=== PATIENT | male | born 1975 | race Caucasian/White ===

== ENCOUNTER 2020-03-22 07:56 | Emergency (ER) | payer OTHER, SELFPAY ==
--- NOTE | ~2020-03-22 | XR_ITS ---
EXAMINATION: XR CHEST CLINICAL INFORMATION: Chest pain. COMPARISON: 11/03/2019 chest radiograph. TECHNIQUE: Frontal view of the chest was obtained. FINDINGS: No significant abnormality is noted involving the heart, lungs, mediastinum, bony thorax or soft tissues. XR/XR chest 1V IMPRESSION: No acute cardiopulmonary process.
[2020-03-22 08:03] VITALS: BP 136/86; PULSE 95; RESP 18; TEMP 37.1; O2SAT 97; BMI 43.5
--- NOTE | 2020-03-22 08:12 | ED_ITS ---
HPI - Chest Pain General Chief Complaint: Chest Pain Stated Complaint: CHEST PAIN Time Seen by Provider: 03/22/20 08:07 Source: patient Mode of arrival: ambulatory Limitations: no limitations History of Present Illness HPI narrative: Pleasant 44-year-old male presenting ambulatory via triage with complaint of left-sided chest pain. His past medical history consists of substance abuse has been in remission for several years currently on methadone, nephrolithiasis, hypertension, and pulmonary embolism anticoagulated on Xarelto for life states he has had left-sided chest pain developed after he shovels snow. States doing a snowstorm he did a lot of shoveling and the day after he developed achy like pain in the left chest radiating to the left arm with movement however has been going on for 3 days now that made him concerned. He denies any upper respiratory symptoms, dyspnea on exertion, anginal-type symp toms. No fever. No recent travel or sick contacts. States he has been compliant with his Xarelto. Again denies any drug use. MD complaint: chest discomfort Onset (ago): day(s) Timing of current episode: episodic Prior episodes: Yes Onset: during exertion Pain location: left chest Pain radiation: left arm Severity: mild Quality: tightness and aching Exacerbating factors: palpation and movement Context: other (After shoveling snow 3 days ago ) Treatment prior to arrival: none Risk Factors Coronary artery disease risk factors: hypertension Pulmonary embolism risk factors: history of pulmonary embolism Related Data Allergies Allergy/AdvReac Type Severity Reaction Status Date / Time Penicillins [PENICILLINS] Allergy Unknown UNKNOWN Unverified 11/02/19 15:53 Review of Systems Review of Systems: Constitutional: No Weight loss, No Fever, No Chills, No Night Sweats, No Fatigue, No Malaise ENT/Mouth: No Hearing loss, No Ear Pain, No Nasal Congestion, No Sinus Pain, No Hoarseness, No sore throat, No Rhinorrhea, No Swallowing Difficulty Eyes: No Eye Pain, No Swelling, No Redness, No Foreign Body, No Discharge, No Vision Changes Cardiovascular: + Chest Pain, No SOB, No Dyspnea on Exertion, No Orthopnea, No Edema, No Palpitations Respiratory: No Cough, No Sputum, No Wheezing, No Smoke Exposure, No Dyspnea Gastrointestinal: No Nausea, No Vomiting, No Diarrhea, No Constipation, No abdominal Pain, No Hematochezia, No Melena Genitourinary:No Dysuria, No Urinary Frequency, No Hematuria, No Urinary Incontinence, No Urgency, No Flank Pain, No Urinary Flow Changes, No Hesitancy Musculoskeletal: No joint pain, No Myalgias, No Joint Swelling Skin: No Skin Lesions, No rash Neuro: No Weakness, No Numbness, No Paresthesias, No Loss of Consciousness, No Dizziness, No Headache Psych: No Social Issues Heme/Lymph: No Bruising, No Bleeding,No Lymphadenopathy Endocrine: No Polyuria, No Polydipsia, No Temperature Intolerance Yes all ot her systems are reviewed and are negative [facility] Past Medical History Medical History (Updated 03/22/20 @ 10:17 by Nikolas Jo NP) Chronic anticoagulation History of blood clots HTN (hypertension) Kidney stones Pulmonary embolism Substance abuse Social History Social History Alcohol intake: former Smoking Status: Former smoker Smoked in Last 30 Days: No Use of substances other than those prescribed or required for medical reasons: Yes Substance Use Type: Heroin Any prior treatment program specific to substance use: No Advance Directives: No Advance Directives Information Provided: No Physical Exam Vital Signs: Vital Signs: Last Vital Signs Temp 97.9 F 03/22/20 10:00 Pulse 68 03/22/20 10:00 Resp 14 03/22/20 10:00 BP 107/76 03/22/20 10:00 Pulse Ox 96 03/22/20 10:00 Body Mass Index 43.5 Const: General: cooperative and healthy appearing; No acute distress or intoxicated appearing Nutritional Appearance: average body habitus Orientation/consciousness: patient oriented x3 HENMT: Head: Yes normal to inspection Ears: hearing grossly normal bilaterally Eyes: General: appearance normal, both eyes and all related structures Visual Cristina: normal visual cristina by confrontation Neck: Neck: Yes normal visual inspection, No positive Brudzinski's sign, No positive Kernig's sign and No tender Thyroid: Thyroid normal Chest: Chest palpation & inspection: normal inspection of the chest, no crepitus and tenderness pectoral muscle and costal cartilage Resp: Effort & Inspection: normal respiratory effort Auscultation: clear to auscultation bilaterally Cardio: Jugular venous distension: no JVD Rate: regular rate Rhythm: regular rhythm Heart sounds: S1 normal heart sound present and S2 normal heart sound present GI: Inspection: Yes normal to inspection Percussion: Yes normal to percussion Auscultation: normal bowel sounds : General: Yes no CVA tenderness Back/Spine/Pelvis: Back: no CVA tenderness Skin: General skin exam: no rashes or lesions noted Neuro: General: patient oriented x3 Extrem: General: Yes normal to inspection Course Course Course Narrative: Workup essentially unremarkable. EKG nondiagnostic troponin negative, COVID negative, chest x-ray negative D-dimer negative. AP and exam more consistent with musculoskeletal chest pain and less likely cardiopulmonary. He will avoid NSAIDs will trial compresses and Tylenol for the pain discomfort. Findings/plan reviewed verbalize sitting comfortable plan. Stable for discharge. MDM - Chest Pain Differential Diagnosis Differential diagnosis: Likely atypical chest pain, costochondritis and chest pain; Unlikely fracture of rib, pneumothorax, stable angina, unstable angina pe ctoris, st elevation myocardial infarction and biliary colic Differential diagnosis: Also considered pulmonary embolism though possibility is low given that he is on chronic anticoagulation. Medical Records Data Attestation: I reviewed the patient's medical records. Medical records narrative: It appears in the [facility] historically he has been here quite a few times for atypical type chest pain. Lab Data Attestation: I reviewed the patient's lab results. Result diagrams: 03/22/20 08:53 03/22/20 08:52 Labs: Lab Results 03/22/20 03/22/20 03/22/20 Range/Units 08:52 08:52 08:53 WBC 7.4 (4.8-10.8) X10*3/uL RBC 4.27 L (4.60-5.80) X10*6/uL Hgb 12.8 L (14.0-18.0) g/dl Hct 38.5 L (42-52) % MCV 90.2 (80-98) fL MCH 30.0 (27.0-33.0) pg MCHC 33.2 (31.0-36.0) g/dl RDW 12.8 (11.0-16.0) % Plt Count 221 (160-400) X10*3/uL MPV 9.6 (9.4-12.4) fL Immature Gran % (Auto) 0.7 H (0.0-0.4) % Neut % (Auto) 62.6 (45-73) % Lymph % (Auto) 27.6 (20-40) % [place] % (Auto) 7.4 (2-11) % Eos % (Auto) 0.9 (0-4) % Baso % (Auto) 0.8 (0-2) % Lymph # (Auto) 2.1 (1.2-4.9) X10*3/uL [place] # (Auto) 0.6 (0.1-1.2) X10*3/uL Eos # (Auto) 0.1 (0.0-0.4) X10*3/uL Baso # (Auto) 0.1 (0.0-0.2) X10*3/uL Abs Immat Gran (auto) 0.05 H (0.00-0.03) X10*3/uL Absolute Neuts (auto) 4.7 (2.0-8.3) X10*3/uL Absolute Nucleated RBC 0.000 (0.0-0.012) X10*3/uL Nucleated RBC % (auto) 0.0 (0.0-0.2) /100WBC PT (10.8-13.0) SEC INR (0.9-1.1) APTT (24.1-38.0) SEC D-Dimer NG/ML Sodium 136 (135-145) mmol/L Potassium 4.3 (3.3-5.1) mmol/L Chloride 100 (96-108) mmol/L Carbon Dioxide 28 (22-29) mmol/L Anion Gap 12 (12-20) BUN 19 H (9-16) mg/dL Creatinine 1.09 (0.5-1.4) mg/dL Estim Creat Clear Calc 106.7 Estimated GFR > 60 Random Glucose 107 (60-115) mg/dL Calcium 9.5 (8.4-10.2) mg/dL Total Bilirubin 0.4 (0.0-1.0) mg/dL AST 43 H (5-37) U/L ALT 55 H (0-40) U/L Alkaline Phosphatase 66 (39-117) U/L Troponin I High Sens (<3.5-35.0) ng/L Total Protein 8.0 (6.5-8.0) g/dL Albumin 4.4 (3.5-5.0) g/dL Urine Color Urine Appearance Urine pH (5.0-8.0) Ur Specific [place] (1.005-1.025) Urine Protein (NEG-TRACE) MG/DL Urine Glucose (UA) (NEG) MG/DL Urine Ketones (NEG) MG/DL Urine Blood (NEG) Urine Nitrite (NEG) Ur Leukocyte Esterase (NEG) Urine RBC (0) /HPF Urine WBC (0-4) /HPF Ur Squamous Epith Cells /LPF Urine Bacteria /LPF Urine Mucus /LPF COVID-19 (JESSIE) Negative (Negative) COVID-19 Clin Com See Note 03/22/20 03/22/20 03/22/20 Range/Units 08:53 08:53 08:54 WBC (4.8-10.8) X10*3/uL RBC (4.60-5.80) X10*6/uL Hgb (14.0-18.0) g/dl Hct (42-52) % MCV (80-98) fL MCH (27.0-33.0) pg MCHC (31.0-36.0) g/dl RDW (11.0-16.0) % Plt Count (160-400) X10*3/uL MPV (9.4-12.4) fL Immature Gran % (Auto) (0.0-0.4) % Neut % (Auto) (45-73) % Lymph % (Auto) (20-40) % [place] % (Auto) (2-11) % Eos % (Auto) (0-4) % Baso % (Auto) (0-2) % Lymph # (Auto) (1.2-4.9) X10*3/uL [place] # (Auto) (0.1-1.2) X10*3/uL Eos # (Auto) (0.0-0.4) X10*3/uL Baso # (Auto) (0.0-0.2) X10*3/uL Abs Immat Gran (auto) (0.00-0.03) X10*3/uL Absolute Neuts (auto) (2.0-8.3) X10*3/uL Absolute Nucleated RBC (0.0-0.012) X10*3/uL Nucleated RBC % (auto) (0.0-0.2) /100WBC PT 19.2 H (10.8-13.0) SEC INR 1.6 H (0.9-1.1) APTT 38.9 H (24.1-38.0) SEC D-Dimer < 200 NG/ML Sodium (135-145) mmol/L Potassium (3.3-5.1) mmol/L Chloride (96-108) mmol/L Carbon Dioxide (22-29) mmol/L Anion Gap (12-20) BUN (9-16) mg/dL Creatinine (0.5-1.4) mg/dL Estim Creat Clear Calc Estimated GFR Random Glucose (60-115) mg/dL Calcium (8.4-10.2) mg/dL Total Bilirubin (0.0-1.0) mg/dL AST (5-37) U/L ALT (0-40) U/L Alkaline Phosphatase (39-117) U/L Troponin I High Sens 4.9 (<3.5-35.0) ng/L Total Protein (6.5-8.0) g/dL Albumin (3.5-5.0) g/dL Urine Color YELLOW Urine Appearance CLEAR Urine pH 6.0 (5.0-8.0) Ur Specific [place] 1.025 (1.005-1.025) Urine Protein NEG (NEG-TRACE) MG/DL Urine Glucose (UA) NEG (NEG) MG/DL Urine Ketones NEG (NEG) MG/DL Urine Blood NEG (NEG) Urine Nitrite NEG (NEG) Ur Leukocyte Esterase NEG (NEG) Urine RBC 0-2 (0) /HPF Urine WBC 0-2 (0-4) /HPF Ur Squamous Epith Cells NONE /LPF Urine Bacteria NONE /LPF Urine Mucus TRACE /LPF COVID-19 (JESSIE) (Negative) COVID-19 Clin Com ABG Data Interpretation: Normal sinus rhythm Rate [address] segment changes No significant change from previous 2019 Imaging Data Chest x-ray: Radiologist's impression: [address] [id number] ReportDraft Patient: Junaid Miller AMR#: [id number]: 1975 cct:[id number]/Sex: 44 / MADM Date: 03/22/20Loc: HO.EDAttending Dr: Ordering Physician: Nikolas Jo NP Date of Service: 03/22/20 Procedure(s): ECG 12 lead EKG Accession Number(s): [id number] cc: ~ Test Reason : CHEST PAIN Blood Pressure : / mmHG Vent. Rate : 096 BPM Atrial Rate : 096 BPM P-R Int : 138 ms QRS Dur : 088 ms QT Int : 346 ms P-R-T Axes : 048 020 025 degrees QTc Int : 437 ms Normal sinus rhythm Normal ECG When compared with ECG of 03-NOV-2019 09:16, No significant change was found Referred By: Nikolas Jo Electronically Signed By: Dictated By:Signed By: DD/ [id number]/TT: 03/22/20 0956Transcriptionist: Discharge Plan Discharge Clinical Impression: Atypical chest pain Patient Disposition: Home, Self-Care Instructions: Chest Wall Pain (ED) Additional Instructions: Your blood work was overall reassuring Her chest x-ray negative Her EKG was okay Your COVID test was negative Your blood test for blood clot was also negative Please continue to take your blood thinner as prescribed The pain that you are experiencing is from muscle strain from shoveling and you should take [id number] Tylenol per label structure Gentle stretching and warm compresses Return if any concerns or worsening symptoms Thank you Referrals: Dian Chu [Primary Care Provider] - 1 week
--- NOTE | 2020-03-22 08:15 | ECG_ITS ---
Test Reason : CHEST PAIN Blood Pressure : / mmHG Vent. Rate : 096 BPM Atrial Rate : 096 BPM P-R Int : 138 ms QRS Dur : 088 ms QT Int : 346 ms P-R-T Axes : 048 020 025 degrees QTc Int : 437 ms Normal sinus rhythm Nonspecific ST and T wave abnormality Borderline ECG When compared with ECG of 03-NOV-2019 09:16, No significant change was found Referred By: Nikolas Jo Electronically Signed By:PAUL BERNARDO
[2020-03-22] MEDS: 0.9 % Sodium Chloride 1,000 ML 999 ML IV (08:58)
[2020-03-22 09:01] LABS: Basophils Absolute Auto 0.1 X10*3/uL (0.0-0.2); Basophils Percent Auto 0.8 % (0-2); Eosinophils Absolute Auto 0.1 X10*3/uL (0.0-0.4); Eosinophils Percent Auto 0.9 % (0-4); Hematocrit 38.5 % (42-52); Hemoglobin 12.8 g/dl (14.0-18.0); Imm Gran Abs Auto 0.05 X10*3/uL (0.00-0.03); Imm Gran Pct Auto 0.7 % (0.0-0.4); Lymphocytes Absolute Auto 2.1 X10*3/uL (1.2-4.9); Lymphocytes Percent Auto 27.6 % (20-40); MANUAL DIFF FLAG NO; Mean Corpuscular HGB Conc 33.2 g/dl (31.0-36.0); Mean Corpuscular Volume 90.2 fL (80-98); Mean Platelet Volume 9.6 fL (9.4-12.4); Monocytes Absolute Auto 0.6 X10*3/uL (0.1-1.2); Monocytes Percent Auto 7.4 % (2-11); Neutrophils Absolute Auto 4.7 X10*3/uL (2.0-8.3); Neutrophils Percent Auto 62.6 % (45-73); Platelet Count 221 X10*3/uL (160-400); Red Blood Count 4.27 X10*6/uL (4.60-5.80); Red Cell Distribution Width 12.8 % (11.0-16.0); White Blood Count 7.4 X10*3/uL (4.8-10.8)
[2020-03-22 09:07] LABS: Glucose Urine UA NEG (NEG); Leukocyte Esterase Urine NEG (NEG); Nitrite Urine NEG (NEG); Specific Gravity - Urine 1.025 (1.005-1.025); Urine Blood NEG (NEG); Urine Ketones NEG (NEG); Urine Protein NEG (NEG-TRACE)
[2020-03-22 09:08] LABS: Appearance Urine CLEAR; Color Urine YELLOW
[2020-03-22 09:10] LABS: INTERNATIONAL NORM RATIO 1.6 (0.9-1.1); Prothrombin Time 19.2 SEC (10.8-13.0)
[2020-03-22 09:13] LABS: D Dimer < 200 NG/ML; Partial Thromboplastin Time 38.9 SEC (24.1-38.0)
[2020-03-22 09:17] LABS: COVID-19 Test Negative (Negative)
[2020-03-22 09:31] LABS: Mucus Urine TRACE /LPF; RBC Urine 0-2 /HPF (0); WBC Urine 0-2 /HPF (0-4)
[2020-03-22 09:36] LABS: Alanine Aminotransferase 55 U/L (0-40); Albumin Level 4.4 g/dL (3.5-5.0); Alkaline Phosphatase 66 U/L (39-117); Anion Gap 12 (12-20); Aspartate Amino Transferase 43 U/L (5-37); Bilirubin Total 0.4 mg/dL (0.0-1.0); Blood Urea Nitrogen 19 mg/dL (9-16); Calcium 9.5 mg/dL (8.4-10.2); Carbon Dioxide 28 mmol/L (22-29); Chloride 100 mmol/L (96-108); Creatinine Clr Calc Pharmacy 106.7; Estimated Glomerular Filt Rate > 60; Glucose Random 107 mg/dL (60-115); Potassium 4.3 mmol/L (3.3-5.1); Sodium 136 mmol/L (135-145)
[2020-03-22 09:41] LABS: Troponin-I High Sensitivity 4.9 ng/L (<3.5-35.0)
[2020-03-22 10:00] VITALS: BP 107/76; PULSE 68; RESP 14; TEMP 36.6; O2SAT 96
== END 2020-03-22 10:55 | disposition home or self-care (01) ==
PROVIDERS: Nurse Practitioner Primary Care; Emergency Provider Emergency Medicine; PCP Internal Medicine
DX: R07.89 Other chest pain (principal); I10 Essential (primary) hypertension; F11.21 Opioid dependence, in remission; Z86.718 Personal history of other venous thrombosis and embolism; Z86.711 Personal history of pulmonary embolism; Z79.01 Long term (current) use of anticoagulants
CPT/HCPCS: 36415; 71045; 80053; 81001; 84484; 85025; 85379; 85610; 85730; 87635; 93005; 96360; 99284

== ENCOUNTER 2020-05-10 10:00 | Emergency (ER) | payer OTHER, SELFPAY ==
--- NOTE | ~2020-05-10 | CT_ITS ---
EXAMINATION: CT ANGIOGRAM OF THE CHEST WITH AND WITHOUT CONTRAST (CT PULMONARY ANGIOGRAM FOR PE) CLINICAL INFORMATION: Reason for Exam sob/ history of DVT COMPARISON: November 03, 2019 TECHNIQUE: Prior to contrast administration, noncontrast localization images were obtained. Subsequently, multidetector volumetric imaging was performed from the thoracic inlet to below the diaphragms following the administration of 85 mL Omnipaque 350 intravenous contrast. No contrast reaction reported Sagittal, coronal, and MIP oblique sagittal reformatted images were obtained on the CT workstation, uploaded to PACS, and reviewed. This CT examination was performed using dose optimization techniques as appropriate, variously including the following: *Automated exposure control *Adjustment of mA and/or kV according to patient size (this includes techniques or standardized protocols for targeted exams where dose is matched to indication/reason for exam; i.e. extremities or head) *Use of iterative reconstruction technique Total exam dose-length product 487 mGy-cm FINDINGS: Imaging is diagnostic to the third order branching. Previous emboli seen within the distal right basilar artery distribution would be nondiagnostic in comparison. QUALITY OF STUDY/CONTRAST BOLUS: Suboptimal. PULMONARY ARTERIES: No central or segmental pulmonary emboli. THORACIC AORTA: No aneurysm or dissection. LUNG: Central airways are patent without significant bronchial wall thickening or bronchiectasis appreciated. No obstructing endobronchial lesions are seen. There is a calcified granuloma within the right lower lobe. No suspicious nodule or confluent parenchymal disease identified. PLEURA: No pleural effusion or pneumothorax. MEDIASTINUM: Normal heart size. No pericardial effusion. No hilar or mediastinal lymphadenopathy. No evidence of septal bowing or right heart strain. CHEST WALL/AXILLA: No axillary or internal mammary lymphadenopathy. OSSEOUS STRUCTURES: No acute or suspicious osseous abnormality. UPPER ABDOMEN: There is diffuse fatty infiltration of the liver. No reflux of contrast into the hepatic veins to suggest elevated right heart pressures. CT/CT angio chest PE protocol IMPRESSION: No definite evidence of acute pulmonary artery embolus with limitations as described. No thoracic aortic aneurysm or dissection. Fatty infiltration of the liver. VTE: negative
[2020-05-10 10:32] VITALS: BP 135/86; PULSE 96; RESP 18; TEMP 36.9; O2SAT 95; BMI 41.9
--- NOTE | 2020-05-10 11:00 | ED_ITS ---
HPI - SOB/Dyspnea General Chief Complaint: Dyspnea Stated Complaint: SOB Time Seen by Provider: 05/10/20 10:52 Source: patient Mode of arrival: ambulatory Limitations: no limitations History of Present Illness HPI Narrative: 44-year-old male with past medical history is significant for hypertension, nephrolithiasis, prior substance abuse he is on methadone, prior DVT and pulmonary embolism currently maintained on Xarelto he presents today with complaint of states he woke up out of sleep with epigastric pain that was described as burning and went to the back of his throat cause him to ?catch his breath?. States this made him worried and he came to emergency room today. He otherwise denies any lower extremity pain. States he has been compliant with his Xarelto. There has been no recent illness. Also reports that he has been overall feeling unwell over the past couple days and is requesting COVID test. Denies any recent travel or known sick contacts. MD elicited complaint: chest pain Onset (ago): day(s) Timing: intermittent Severity: mild Exacerbating factors: nothing Relieving factors: nothing Known history of: PE Associated symptoms: chest pain Treatment prior to arrival: none Related Data Previous Rx's Medication Instructions Recorded omeprazole magnesium [Prilosec OTC] 20 mg PO DAILY #14 tab 05/10/20 Allergies Allergy/AdvReac Type Severity Reaction Status Date / Time Penicillins [PENICILLINS] Allergy Unknown UNKNOWN Unverified 11/02/19 15:53 Review of Systems Review of Systems: Constitutional: No Weight loss, No Fever, No Chills, No Night Sweats, No Fatigue, No Malaise ENT/Mouth: No Hearing loss, No Ear Pain, No Nasal Congestion, No Sinus Pain, No Hoarseness, No sore throat, No Rhinorrhea, No Swallowing Difficulty Eyes: No Eye Pain, No Swelling, No Redness, No Foreign Body, No Discharge, No Vision Changes Cardiovascular: + Chest Pain, No SOB, No Dyspnea on Exertion, No Orthopnea, No Edema, No Palpitations Respiratory: No Cough, No Sputum, No Wheezing, No Smoke Exposure, No Dyspnea Gastrointestinal: No Nausea, No Vomiting, No Diarrhea, No Constipation, No abdominal Pain, No Hematochezia, No Melena Genitourinary: No Dysuria, No Urinary Frequency, No Hematuria, No Urinary Incontinence, No Urgency, No Flank Pain, No Urinary Flow Changes, No Hesitancy Musculoskeletal: No joint pain, No Myalgias, No Joint Swelling Skin: No Skin Lesions, No rash Neuro: No Weakness, No Numbness, No Paresthesias, No Loss of Consciousness, No Dizziness, No Headache Psych: Positive anxiety about his health, No Social Issues Heme/Lymph: No Bruising, No Bleeding,No Lymphadenopathy Endocrine: No Polyuria, No Polydipsia, No Temperature Intolerance Yes all other systems are reviewed and are negative [facility] Past Medical History Medical History Chronic anticoagulation History of blood clots HTN (hypertension) Kidney stones Pulmonary embolism Substance abuse Social History Social History Alcohol intake: former Smoking Status: Former smoker Substance Use Type: Heroin Advance Directives: No Advance Directives Information Provided: No Physical Exam Vital Signs: Vital Signs: Last Vital Signs Temp 98.4 F 05/10/20 10:32 Pulse 96 05/10/20 10:32 Resp 18 05/10/20 10:32 BP 135/86 05/10/20 10:32 Pulse Ox 95 05/10/20 10:32 Body Mass Index 41.9 Reviewed Const: Other: Patient's turning on side of bed on his cell phone texting and talking. Smiling upon greeting me. General: cooperative and healthy appearing; No acute distress or intoxicated appearing Nutritional Appearance: average body habitus Orientation/consciousness: patient oriented x3 HENMT: Head: Yes normal to inspection Ears: hearing grossly normal bilaterally Eyes: General: appearance normal, both eyes and all related structures Visual Cristina: normal visual cristina by confrontation Neck: Neck: Yes normal visual inspection, No positive Brudzinski's sign, No positive Kernig's sign and No tender Thyroid: Thyroid normal Chest: Chest palpation & inspection: normal inspection of the chest Resp: Effort & Inspection: normal respiratory effort Auscultation: clear to auscultation bilaterally Cardio: Jugular venous distension: no JVD Rhythm: regular rhythm Heart sounds: S1 normal heart sound present and S2 normal heart sound present GI: Inspection: Yes normal to inspection Palpation (GI): Soft to palpation Percussion: Yes normal to percussion Auscultation: normal bowel sounds : General: Yes no CVA tenderness Back/Spine/Pelvis: Back: no CVA tenderness Skin: General skin exam: no rashes or lesions noted Neuro: General: patient oriented x3 Extrem: General: Yes normal to inspection Course Course Course Narrative: Atypical for cardiac etiology given his history he is on Xarelto however will recheck labs, EKG and given the recurrent symptoms likely etiology is reflux versus anxiety but has helped but will go ahead and check CTA of the chest rule out superimposed PE given his history. Reevaluation(s) Reevaluation #1: Has been resting comfortably no complaint of pain, workup overall reassuring CTA without evidence of pulmonary embolism. COVID negative. Will give a short course of a PPI and follow-up with his primary care. Comfortable plan stable for discharge. MDM - SOB/Dyspnea Medical Records Attestation: I reviewed the patient's medical records. Lab Data Attestation: I reviewed the patient's lab results. Result diagrams: 05/10/20 11:21 05/10/20 11:21 Labs: Lab Results 05/10/20 05/10/20 05/10/20 Range/Units 11:21 11:21 11:21 WBC 8.8 (4.8-10.8) X10*3/uL RBC 4.34 L (4.60-5.80) X10*6/uL Hgb 13.1 L (14.0-18.0) g/dl Hct 38.9 L (42-52) % MCV 89.6 (80-98) fL MCH 30.2 (27.0-33.0) pg MCHC 33.7 (31.0-36.0) g/dl RDW 12.6 (11.0-16.0) % Plt Count 217 (160-400) X10*3/uL MPV 9.7 (9.4-12.4) fL Immature Gran % (Auto) 0.9 H (0.0-0.4) % Neut % (Auto) 68.9 (45-73) % Lymph % (Auto) 20.7 (20-40) % Davison % (Auto) 7.3 (2-11) % Eos % (Auto) 1.6 (0-4) % Baso % (Auto) 0.6 (0-2) % Lymph # (Auto) 1.8 (1.2-4.9) X10*3/uL Davison # (Auto) 0.6 (0.1-1.2) X10*3/uL Eos # (Auto) 0.1 (0.0-0.4) X10*3/uL Baso # (Auto) 0.1 (0.0-0.2) X10*3/uL Abs Immat Gran (auto) 0.08 H (0.00-0.03) X10*3/uL Absolute Neuts (auto) 6.1 (2.0-8.3) X10*3/uL Absolute Nucleated RBC 0.000 (0.0-0.012) X10*3/uL Nucleated RBC % (auto) 0.0 (0.0-0.2) /100WBC PT 18.8 H (10.8-13.0) SEC INR 1.6 H (0.9-1.1) APTT 41.0 H (24.1-38.0) SEC Sodium 139 (135-145) mmol/L Potassium 4.1 (3.3-5.1) mmol/L Chloride 102 (96-108) mmol/L Carbon Dioxide 27 (22-29) mmol/L Anion Gap 14 (12-20) BUN 24 H (9-16) mg/dL Creatinine 1.11 (0.5-1.4) mg/dL Estim Creat Clear Calc 102.6 Estimated GFR > 60 Random Glucose 123 H (60-115) mg/dL Calcium 9.7 (8.4-10.2) mg/dL Total Bilirubin 0.2 (0.0-1.0) mg/dL AST 34 (5-37) U/L ALT 45 H (0-40) U/L Alkaline Phosphatase 75 (39-117) U/L Troponin I High Sens (<3.5-35.0) ng/L Total Protein 8.1 H (6.5-8.0) g/dL Albumin 4.5 (3.5-5.0) g/dL COVID-19 (JESSIE) (Negative) COVID-19 Clin Com 05/10/20 05/10/20 Range/Units 11:21 11:21 WBC (4.8-10.8) X10*3/uL RBC (4.60-5.80) X10*6/uL Hgb (14.0-18.0) g/dl Hct (42-52) % MCV (80-98) fL MCH (27.0-33.0) pg MCHC (31.0-36.0) g/dl RDW (11.0-16.0) % Plt Count (160-400) X10*3/uL MPV (9.4-12.4) fL Immature Gran % (Auto) (0.0-0.4) % Neut % (Auto) (45-73) % Lymph % (Auto) (20-40) % Davison % (Auto) (2-11) % Eos % (Auto) (0-4) % Baso % (Auto) (0-2) % Lymph # (Auto) (1.2-4.9) X10*3/uL Davison # (Auto) (0.1-1.2) X10*3/uL Eos # (Auto) (0.0-0.4) X10*3/uL Baso # (Auto) (0.0-0.2) X10*3/uL Abs Immat Gran (auto) (0.00-0.03) X10*3/uL Absolute Neuts (auto) (2.0-8.3) X10*3/uL Absolute Nucleated RBC (0.0-0.012) X10*3/uL Nucleated RBC % (auto) (0.0-0.2) /100WBC PT (10.8-13.0) SEC INR (0.9-1.1) APTT (24.1-38.0) SEC Sodium (135-145) mmol/L Potassium (3.3-5.1) mmol/L Chloride (96-108) mmol/L Carbon Dioxide (22-29) mmol/L Anion Gap (12-20) BUN (9-16) mg/dL Creatinine (0.5-1.4) mg/dL Estim Creat Clear Calc Estimated GFR Random Glucose (60-115) mg/dL Calcium (8.4-10.2) mg/dL Total Bilirubin (0.0-1.0) mg/dL AST (5-37) U/L ALT (0-40) U/L Alkaline Phosphatase (39-117) U/L Troponin I High Sens 3.7 (<3.5-35.0) ng/L Total Protein (6.5-8.0) g/dL Albumin (3.5-5.0) g/dL COVID-19 (JESSIE) Negative (Negative) COVID-19 Clin Com See Note Imaging Data CT chest PE rule out: Radiologist's impression: [address] [id number] Scan ReportSigned Patient: Junaid Patel AMR#: [id number]: 1975Acct:[id number]/Sex: 44 / MADM Date: 05/10/20Loc: [address]: Ordering Physician: Nikolas Jo NP Date of Service: 05/10/20 Procedure(s): CT angio chest PE protocol Accession Number(s): [id number] cc: Nikolas Jo NP~ EXAMINATION: CT ANGIOGRAM OF THE CHEST WITH AND WITHOUT CONTRAST (CT PULMONARY ANGIOGRAM FOR PE) CLINICAL INFORMATION: Reason for Exam sob/ history of DVT COMPARISON: November 03, 2019 TECHNIQUE: Prior to contrast administration, noncontrast localization images were obtained. Subsequently, multidetector volumetric imaging was performed from the thoracic inlet to below the diaphragms following the administration of 85 mL Omnipaque 350 intravenous contrast. No contrast reaction reported Sagittal, coronal, and MIP oblique sagittal reformatted images were obtained on the CT workstation, uploaded to PACS, and reviewed. This CT examination was performed using dose optimization techniques as appropriate, variously including the following: *Automated exposure control *Adjustment of mA and/or kV according to patient size (this includes techniques or standardized protocols for targeted exams where dose is matched to indication/reason for exam; i.e. extremities or head) *Use of iterative reconstruction technique Total exam dose-length product 487 mGy-cm FINDINGS: Imaging is diagnostic to the third order branching. Previous emboli seen within the distal right basilar artery distribution would be nondiagnostic in comparison. QUALITY OF STUDY/CONTRAST BOLUS: Suboptimal. PULMONARY ARTERIES: No central or segmental pulmonary emboli. THORACIC AORTA: No aneurysm or dissection. LUNG: Central airways are patent without significant bronchial wall thickening or bronchiectasis appreciated. No obstructing endobronchial lesions are seen. There is a calcified granuloma within the right lower lobe. No suspicious nodule or confluent parenchymal disease identified. PLEURA: No pleural effusion or pneumothorax. MEDIASTINUM: Normal heart size. No pericardial effusion. No hilar or mediastinal lymphadenopathy. No evidence of septal bowing or right heart strain. CHEST WALL/AXILLA: No axillary or internal mammary lymphadenopathy. OSSEOUS STRUCTURES: No acute or suspicious osseous abnormality. UPPER ABDOMEN: There is diffuse fatty infiltration of the liver. No reflux of contrast into the hepatic veins to suggest elevated right heart pressures. CT/CT angio chest PE protocol IMPRESSION: No definite evidence of acute pulmonary artery embolus with limitations as described. No thoracic aortic aneurysm or dissection. Fatty infiltration of the liver. VTE: negative Dictated By:GAGANDEEP LANDAVERDEigned By:<Electronically signed by GAGANDEEP LANDAVERDE MD in OV>05/10/20 1258 DD/ 1100TD/TT: Lacer And Tier: SUMA ECG Data Interpretation: Normal sinus rhythm Rate 81 LA interval within normal limits QTC within normal limits No acute ischemic changes No significant change from previous. Discharge Plan Discharge Clinical Impression: Atypical chest pain, Anxiety Patient Disposition: Home, Self-Care Instructions: Chest Pain (ED), Anxiety (ED) Additional Instructions: Your blood work was overall reassuring Your COVID test negative The CT scan of the chest did not show any evidence of a blood clot Continue taking blood thinner as prescribed Your symptoms are more descriptive of gastric reflux and for this reason as I have discussed with you please try dietary modification Do not eat at least 1-2 hours before bedtime Trial a short course of anti acid Regular exercise, balanced diet and weight loss can also improve your overall health Follow with primary care doctor as discussed Thank you Prescriptions: New omeprazole magnesium [Prilosec OTC] 20 mg tablet,delayed release (DR/EC) 20 mg PO DAILY Qty: 14 RF: 0 Referrals: Dian Chu [Primary Care Provider] - 1 week
--- NOTE | 2020-05-10 11:01 | ECG_ITS ---
Test Reason : SOB Blood Pressure : / mmHG Vent. Rate : 081 BPM Atrial Rate : 081 BPM P-R Int : 136 ms QRS Dur : 090 ms QT Int : 384 ms P-R-T Axes : 034 016 012 degrees QTc Int : 446 ms Normal sinus rhythm Normal ECG No significant changes when compared with the previous EKG of 22 mar 2020 Referred By: Nikolas Jo Electronically Signed By:PAUL BERNARDO
[2020-05-10 11:33] LABS: MANUAL DIFF FLAG NO
[2020-05-10 11:34] LABS: Basophils Absolute Auto 0.1 X10*3/uL (0.0-0.2); Basophils Percent Auto 0.6 % (0-2); Eosinophils Absolute Auto 0.1 X10*3/uL (0.0-0.4); Eosinophils Percent Auto 1.6 % (0-4); Hematocrit 38.9 % (42-52); Hemoglobin 13.1 g/dl (14.0-18.0); Imm Gran Abs Auto 0.08 X10*3/uL (0.00-0.03); Imm Gran Pct Auto 0.9 % (0.0-0.4); Lymphocytes Absolute Auto 1.8 X10*3/uL (1.2-4.9); Lymphocytes Percent Auto 20.7 % (20-40); Mean Corpuscular HGB Conc 33.7 g/dl (31.0-36.0); Mean Corpuscular Hemoglobin 30.2 pg (27.0-33.0); Mean Corpuscular Volume 89.6 fL (80-98); Mean Platelet Volume 9.7 fL (9.4-12.4); Monocytes Absolute Auto 0.6 X10*3/uL (0.1-1.2); Monocytes Percent Auto 7.3 % (2-11); Neutrophils Absolute Auto 6.1 X10*3/uL (2.0-8.3); Neutrophils Percent Auto 68.9 % (45-73); Platelet Count 217 X10*3/uL (160-400); Red Blood Count 4.34 X10*6/uL (4.60-5.80); Red Cell Distribution Width 12.6 % (11.0-16.0); White Blood Count 8.8 X10*3/uL (4.8-10.8)
[2020-05-10 11:39] LABS: INTERNATIONAL NORM RATIO 1.6 (0.9-1.1); Prothrombin Time 18.8 SEC (10.8-13.0)
[2020-05-10 11:52] LABS: COVID-19 Test Negative (Negative); IDNOW Serial# 9DD0AD1C
[2020-05-10 12:03] LABS: Alanine Aminotransferase 45 U/L (0-40); Albumin Level 4.5 g/dL (3.5-5.0); Alkaline Phosphatase 75 U/L (39-117); Anion Gap 14 (12-20); Aspartate Amino Transferase 34 U/L (5-37); Bilirubin Total 0.2 mg/dL (0.0-1.0); Blood Urea Nitrogen 24 mg/dL (9-16); Calcium 9.7 mg/dL (8.4-10.2); Carbon Dioxide 27 mmol/L (22-29); Chloride 102 mmol/L (96-108); Creatinine Clr Calc Pharmacy 102.6; Estimated Glomerular Filt Rate > 60; Glucose Random 123 mg/dL (60-115); Potassium 4.1 mmol/L (3.3-5.1); Sodium 139 mmol/L (135-145); Total Protein 8.1 g/dL (6.5-8.0)
[2020-05-10 12:06] LABS: Troponin-I High Sensitivity 3.7 ng/L (<3.5-35.0)
== END 2020-05-10 13:59 | disposition home or self-care (01) ==
PROVIDERS: Nurse Practitioner Primary Care; Emergency Provider Emergency Medicine Emergency Medical Services; PCP Internal Medicine
DX: R06.02 Shortness of breath (principal); R07.9 Chest pain, unspecified; F41.1 Generalized anxiety disorder; F43.0 Acute stress reaction; I10 Essential (primary) hypertension; Z20.822 Contact with and (suspected) exposure to COVID-19; Z87.891 Personal history of nicotine dependence; Z79.899 Other long term (current) drug therapy
CPT/HCPCS: 36415; 71275; 80053; 84484; 85025; 85610; 85730; 87635; 93005; 96360; 99284; Q9967

== ENCOUNTER 2020-07-20 23:00 | Emergency (ER) | payer OTHER, SELFPAY ==
--- NOTE | ~2020-07-20 | XR_ITS ---
EXAMINATION: XR CHEST CLINICAL INFORMATION: Chest pain COMPARISON: 05/10/2020 TECHNIQUE: Frontal view of the chest was obtained. FINDINGS: Lung volumes are symmetric. No focal consolidation is seen. No evidence of pneumothorax, pleural effusion, or pulmonary edema. The cardiomediastinal contour is unremarkable. No acute osseous findings are seen. XR/XR chest 1V IMPRESSION: No acute cardiopulmonary findings.
[2020-07-20 23:06] VITALS: BMI 45.1
--- NOTE | 2020-07-20 23:08 | ECG_ITS ---
Test Reason : CHEST PAIN Blood Pressure : / mmHG Vent. Rate : 073 BPM Atrial Rate : 073 BPM P-R Int : 130 ms QRS Dur : 092 ms QT Int : 384 ms P-R-T Axes : 043 020 032 degrees QTc Int : 423 ms Normal sinus rhythm Normal ECG When compared with ECG of 10-MAY-2020 11:23, No significant change was found Referred By: Generic ED Physician Electronically Signed By:Igor Antony
[2020-07-20 23:44] VITALS: BP 133/73; PULSE 74; RESP 16; O2SAT 97; BMI 45.1
[2020-07-21 01:59] VITALS: BP 128/86; PULSE 66; RESP 18; O2SAT 97
[2020-07-21 02:20] LABS: Basophils Absolute Auto 0.1 X10*3/uL (0.0-0.2); Basophils Percent Auto 0.7 % (0-2); Eosinophils Absolute Auto 0.2 X10*3/uL (0.0-0.4); Eosinophils Percent Auto 1.9 % (0-4); Hematocrit 36.8 % (42-52); Hemoglobin 12.2 g/dl (14.0-18.0); Imm Gran Abs Auto 0.05 X10*3/uL (0.00-0.03); Imm Gran Pct Auto 0.5 % (0.0-0.4); Lymphocytes Absolute Auto 3.3 X10*3/uL (1.2-4.9); Lymphocytes Percent Auto 33.2 % (20-40); MANUAL DIFF FLAG NO; Mean Corpuscular HGB Conc 33.2 g/dl (31.0-36.0); Mean Corpuscular Hemoglobin 29.9 pg (27.0-33.0); Mean Corpuscular Volume 90.2 fL (80-98); Mean Platelet Volume 9.4 fL (9.4-12.4); Monocytes Absolute Auto 0.9 X10*3/uL (0.1-1.2); Monocytes Percent Auto 9.2 % (2-11); Neutrophils Absolute Auto 5.4 X10*3/uL (2.0-8.3); Neutrophils Percent Auto 54.5 % (45-73); Platelet Count 212 X10*3/uL (160-400); Red Blood Count 4.08 X10*6/uL (4.60-5.80); Red Cell Distribution Width 12.6 % (11.0-16.0)
[2020-07-21 02:57] LABS: Blood Urea Nitrogen 24 mg/dL (9-16); Calcium 9.6 mg/dL (8.4-10.2); Carbon Dioxide 26 mmol/L (22-29); Estimated Glomerular Filt Rate > 60; Glucose Random 86 mg/dL (60-115)
[2020-07-21 03:10] LABS: Delay - Chemistry DELAY
--- NOTE | 2020-07-21 03:51 | ED.CHESTPAIN ---
HPI - Chest Pain General Chief Complaint: Chest Pain Stated Complaint: chest pain Time Seen by Provider: 07/21/20 03:51 Source: patient Mode of arrival: ambulatory History of Present Illness HPI narrative: This is a 44-year-old male with significant past medical history VTE currently on Xarelto for 3 years and comes in with complaints of 2 days intermittent sharp, stabbing pain across his anterior chest that occurs whether he is at rest or exerting himself and has not been associated with any headaches, dizziness, fevers, chills, nausea, diaphoresis. Patient does endorse that he was doing some lifting as well as doing some overhead work 2 days ago. He is unable to take ibuprofen but has been trying Tylenol for his discomfort. Related Data Previous Rx's Medication Instructions Recorded omeprazole magnesium [Prilosec OTC] 20 mg PO DAILY #14 tab 05/10/20 Allergies Allergy/AdvReac Type Severity Reaction Status Date / Time Penicillins [PENICILLINS] Allergy Unknown UNKNOWN Unverified 11/02/19 15:53 Review of Systems Review of Systems: Pertinent positives and negatives as stated in HPI 10 point review of systems is otherwise negative. PMFSH Past Medical History Source: nursing notes reviewed Medical History Chronic anticoagulation History of blood clots HTN (hypertension) Kidney stones Pulmonary embolism Substance abuse Social History Social History Alcohol intake: former Substance Use Type: Heroin Advance Directives: No Advance Directives Information Provided: No Physical Exam Vital Signs: Vital Signs: Last Vital Signs Pulse 66 07/21/20 01:59 Resp 18 07/21/20 01:59 BP 128/86 07/21/20 01:59 Pulse Ox 97 07/21/20 01:59 Body Mass Index 45.1 VITAL SIGNS: Reviewed. GENERAL: Well developed, well nourished, in no acute distress. HEAD: Normocephalic/atraumatic EYES: PERRLA, EOMI EARS: Ext canals without abnormality NOSE: Nares patent bilateral OROPHARYNX: no oral lesions noted, posterior pharynx clear NECK: Supple, no adenopathy LUNGS: Normal breath sounds. No adventitious sounds or accessory muscle use. SpO2<97> CARDIOVASCULAR: Regular rate and rhythm without noted murmurs, no JVD or lower extremity edema. ABDOMEN: Soft, non-tender, non-distended with bowel sounds. Course Course Course Narrative: This is a 44-year-old male with history and clinical presentation most consistent with costochondritis but will rule out cardio pulmonary etiologies and doubt any additional VTE etiologies. Review of all investigations negative for any acute findings. Specifically, high sensitivity troponin is consistent with low-level detection when compared to prior and there are no acute changes on EKG. Patient was informed of all results and discharged home in stable condition with instructions follow-up with his PCP. MDM - Chest Pain Lab Data Result diagrams: 07/21/20 02:15 07/21/20 02:15 Labs: Lab Results 07/21/20 07/21/20 07/21/20 Range/Units 02:15 02:15 02:15 WBC 10.0 (4.8-10.8) X10*3/uL RBC 4.08 L (4.60-5.80) X10*6/uL Hgb 12.2 L (14.0-18.0) g/dl Hct 36.8 L (42-52) % MCV 90.2 (80-98) fL MCH 29.9 (27.0-33.0) pg MCHC 33.2 (31.0-36.0) g/dl RDW 12.6 (11.0-16.0) % Plt Count 212 (160-400) X10*3/uL MPV 9.4 (9.4-12.4) fL Immature Gran % (Auto) 0.5 H (0.0-0.4) % Neut % (Auto) 54.5 (45-73) % Lymph % (Auto) 33.2 (20-40) % [place] % (Auto) 9.2 (2-11) % Eos % (Auto) 1.9 (0-4) % Baso % (Auto) 0.7 (0-2) % Lymph # (Auto) 3.3 (1.2-4.9) X10*3/uL [place] # (Auto) 0.9 (0.1-1.2) X10*3/uL Eos # (Auto) 0.2 (0.0-0.4) X10*3/uL Baso # (Auto) 0.1 (0.0-0.2) X10*3/uL Abs Immat Gran (auto) 0.05 H (0.00-0.03) X10*3/uL Absolute Neuts (auto) 5.4 (2.0-8.3) X10*3/uL Absolute Nucleated RBC 0.000 (0.0-0.012) X10*3/uL Nucleated RBC % (auto) 0.0 (0.0-0.2) /100WBC Carbon Dioxide 26 (22-29) mmol/L BUN 24 H (9-16) mg/dL Creatinine 1.07 (0.5-1.4) mg/dL Estim Creat Clear Calc 111.0 Estimated GFR > 60 Random Glucose 86 (60-115) mg/dL Calcium 9.6 (8.4-10.2) mg/dL Troponin I High Sens 4.0 (<3.5-35.0) ng/L Specimen Comment 07/21/20 Range/Units 02:15 WBC (4.8-10.8) X10*3/uL RBC (4.60-5.80) X10*6/uL Hgb (14.0-18.0) g/dl Hct (42-52) % MCV (80-98) fL MCH (27.0-33.0) pg MCHC (31.0-36.0) g/dl RDW (11.0-16.0) % Plt Count (160-400) X10*3/uL MPV (9.4-12.4) fL Immature Gran % (Auto) (0.0-0.4) % Neut % (Auto) (45-73) % Lymph % (Auto) (20-40) % [place] % (Auto) (2-11) % Eos % (Auto) (0-4) % Baso % (Auto) (0-2) % Lymph # (Auto) (1.2-4.9) X10*3/uL [place] # (Auto) (0.1-1.2) X10*3/uL Eos # (Auto) (0.0-0.4) X10*3/uL Baso # (Auto) (0.0-0.2) X10*3/uL Abs Immat Gran (auto) (0.00-0.03) X10*3/uL Absolute Neuts (auto) (2.0-8.3) X10*3/uL Absolute Nucleated RBC (0.0-0.012) X10*3/uL Nucleated RBC % (auto) (0.0-0.2) /100WBC Carbon Dioxide (22-29) mmol/L BUN (9-16) mg/dL Creatinine (0.5-1.4) mg/dL Estim Creat Clear Calc Estimated GFR Random Glucose (60-115) mg/dL Calcium (8.4-10.2) mg/dL Troponin I High Sens (<3.5-35.0) ng/L Specimen Comment DELAY Discharge Plan Discharge Clinical Impression: Atypical chest pain, Acute costochondritis Patient Disposition: Home, Self-Care Instructions: Costochondritis (ED) Additional Instructions: 1. Reanude todos los medicamentos caseros seg?n lo prescrito. 2. Se recomienda el uso de Tylenol 1000 mg, por v?a oral, cada 6 horas seg?n sea necesario para controlar el dolor. No exceda los 4000 mg en 24 horas. 3. Se recomienda el uso de parche de lidoca?na, est? disponible sin receta, se aplica en el ?kathi de m?ximo dolor vasquez se indica en el paquete exterior. 4. [place] un seguimiento con garcia proveedor de atenci?n primaria en los pr?ximos 2-3 d?as para justice reevaluaci?n. Regrese a la milton de emergencias si los s?ntomas empeoran. Prescriptions: No Action omeprazole magnesium [Prilosec OTC] 20 mg tablet,delayed release (DR/EC) 20 mg PO DAILY Qty: 14 RF: 0 Referrals: Dian Chu [Primary Care Provider] - 2 days Print Language: Jamaican
[2020-07-21 04:08] VITALS: BP 131/72; PULSE 72; RESP 13; O2SAT 98
[2020-07-21 04:12] LABS: Anion Gap 12 (12-20); Chloride 101 mmol/L (96-108); Potassium 4.1 mmol/L (3.3-5.1); Sodium 137 mmol/L (135-145)
== END 2020-07-21 04:22 | disposition home or self-care (01) ==
PROVIDERS: Emergency Provider Student in an Organized Health Care Education/Training Program; PCP Internal Medicine
DX: R07.89 Other chest pain (principal); M94.0 Chondrocostal junction syndrome [Tietze]; I10 Essential (primary) hypertension; F11.10 Opioid abuse, uncomplicated; Z86.718 Personal history of other venous thrombosis and embolism; Z79.01 Long term (current) use of anticoagulants
CPT/HCPCS: 36415; 71045; 80048; 84484; 85025; 93005; 99284

== ENCOUNTER 2021-01-06 16:37 | Emergency (ER) | payer OTHER, SELFPAY ==
--- NOTE | ~2021-01-06 | XR_ITS ---
EXAMINATION: XR CHEST CLINICAL INFORMATION: Chest pain COMPARISON: 07/21/2020 TECHNIQUE: Frontal view of the chest was obtained. FINDINGS: No significant abnormality is noted involving the heart, lungs, mediastinum, bony thorax or soft tissues. XR/XR chest 1V IMPRESSION: Unremarkable examination.
--- NOTE | ~2021-01-06 | CT_ITS ---
EXAMINATION: CT ANGIOGRAM OF THE CHEST WITH AND WITHOUT CONTRAST (CT PULMONARY ANGIOGRAM FOR PE) CLINICAL INFORMATION: Reason for Exam chest pain with hx of PE , COMPARISON: 05/10/2020 and prior studies dating back to 11/07/2017 TECHNIQUE: Prior to contrast administration, noncontrast localization images were obtained. Subsequently, multidetector volumetric imaging was performed from the thoracic inlet to below the diaphragms following the administration of 65 mL Omnipaque 350 intravenous contrast. No contrast reaction reported Sagittal, coronal, and MIP oblique sagittal reformatted images were obtained on the CT workstation, uploaded to PACS, and reviewed. This CT examination was performed using dose optimization techniques as appropriate, variously including the following: *Automated exposure control *Adjustment of mA and/or kV according to patient size (this includes techniques or standardized protocols for targeted exams where dose is matched to indication/reason for exam; i.e. extremities or head) *Use of iterative reconstruction technique Total exam dose-length product 486 mGy-cm FINDINGS: QUALITY OF STUDY/CONTRAST BOLUS: Satisfactory. PULMONARY ARTERIES: No central or segmental pulmonary emboli. THORACIC AORTA: No aneurysm or dissection. LUNG: No focal consolidation, nodules or masses. Calcified granuloma superior segment right lower lobe, unchanged. PLEURA: No pleural effusion or pneumothorax. MEDIASTINUM: Normal heart size. No pericardial effusion. No hilar or mediastinal lymphadenopathy. No evidence of septal bowing or right heart strain. CHEST WALL/AXILLA: No axillary or internal mammary lymphadenopathy. OSSEOUS STRUCTURES: No acute or suspicious osseous abnormality. UPPER ABDOMEN: Diffusely decreased attenuation of the hepatic parenchyma. Relative areas of sparing adjacent to the gallbladder. No reflux of contrast into the hepatic veins to suggest elevated right heart pressures. CT/CT angio chest PE protocol IMPRESSION: -No CT evidence of pulmonary embolism. -Diffusely decreased attenuation of the hepatic parenchyma, a nonspecific finding but most commonly on the basis of diffuse hepatocellular disease such as hepatic steatosis. VTE: negative
--- NOTE | 2021-01-06 18:49 | ECG_ITS ---
Test Reason : Chest Pain Blood Pressure : / mmHG Vent. Rate : 069 BPM Atrial Rate : 069 BPM P-R Int : 132 ms QRS Dur : 090 ms QT Int : 396 ms P-R-T Axes : 028 019 017 degrees QTc Int : 424 ms Normal sinus rhythm Normal ECG When compared with ECG of 20-JUL-2020 23:27, No significant change was found Referred By: Generic ED Physician Electronically Signed By:AG FRIAS MD
[2021-01-06 19:15] VITALS: BP 114/76; PULSE 79; RESP 18; TEMP 36.8; O2SAT 98; BMI 43.5
--- NOTE | 2021-01-06 19:44 | ED_ITS ---
HPI - Chest Pain General Chief Complaint: Chest Pain Stated Complaint: Chest pain/Headache Time Seen by Provider: 01/06/21 19:44 Source: patient Mode of arrival: ambulatory Limitations: no limitations History of Present Illness HPI narrative: Patient's history of PE diagnosed 3 years ago on Xarelto no coronary artery disease complaining of left-sided chest pain for last 3 days and some pain in left arm specially today pain lasting for 20-30 minutes sharp in character no increase in pain on deep inspiration or movements no syncope no nausea or vomiting slight shortness of breath no cough or fever today noticed some pain in the left side of the head also. No head injury no chest Related Data Previous Rx's Medication Instructions Recorded omeprazole magnesium 20 mg 20 mg PO DAILY #14 tab 05/10/20 tablet,delayed release (Prilosec OTC) tramadol 50 mg tablet 50 mg PO Q6H PRN #20 tab 01/06/21 Allergies Allergy/AdvReac Type Severity Reaction Status Date / Time Penicillins [PENICILLINS] Allergy Unknown UNKNOWN Unverified 11/02/19 15:53 Review of Systems 2 Review of Systems: Yes all other systems are reviewed and are negative [facility] Past Medical History Medical History Chronic anticoagulation History of blood clots HTN (hypertension) Kidney stones Pulmonary embolism Substance abuse Social History Social History Alcohol intake: former Patient Tobacco Use Status: Never used Tobacco Substance Use Type: Heroin Advance Directives: No Physical Exam Vital Signs: Vital Signs: Last Vital Signs Temp 98.3 F 01/06/21 19:15 Pulse 68 01/06/21 21:49 Resp 15 01/06/21 21:49 BP 114/76 01/06/21 19:15 Pulse Ox 98 01/06/21 19:15 Body Mass Index 43.5 Appearance: Alert. Oriented X3. No acute distress. Eyes: No pallor, icterus ENT: Pharynx normal. Oral Mucosa moist Neck: Normal inspection. Neck supple. CVS: Normal heart rate and rhythm. Pulses normal. Respiratory: No respiratory distress. Equal air entry bilateral, no wheezing/rales/rhonchi Abdomen: Soft and nontender. Bowel sounds are present, no mass palpable, no CVA tenderness Skin: Skin warm and dry. Normal skin color. Normal skin turgor. Extremities: No lower extremity edema. No calf tenderness Neuro: Oriented X 3. No motor deficit. MDM - Chest Pain MDM Narrative Medical decision making narrative: Patient with history of PE on Xarelto with atypical chest pain EKG without any ischemic changes CTA chest negative for PE discharge patient home advised follow-up with steamfitter apprentice Medical Records Data Attestation: I reviewed the patient's medical records. Lab Data Attestation: I reviewed the patient's lab results. Result diagrams: 01/06/21 19:59 01/06/21 19:59 Labs: Lab Results 01/06/21 01/06/21 01/06/21 Range/Units 19:59 19:59 19:59 WBC 8.8 (4.8-10.8) X10*3/uL RBC 4.05 L (4.60-5.80) X10*6/uL Hgb 12.1 L (14.0-18.0) g/dl Hct 36.5 L (42.0-52.0) % MCV 90.1 (80.0-98.0) fL MCH 29.9 (27.0-33.0) pg MCHC 33.2 (31.0-36.0) g/dl RDW 12.6 (11.0-16.0) % Plt Count 208 (160-400) X10*3/uL MPV 9.3 L (9.4-12.4) fL Immature Gran % (Auto) 0.6 H (0.0-0.4) % Neut % (Auto) 51.5 (45-73) % Lymph % (Auto) 34.2 (20-40) % [place] % (Auto) 10.9 (2-11) % Eos % (Auto) 2.1 (0-4) % Baso % (Auto) 0.7 (0-2) % Lymph # (Auto) 3.0 (1.2-4.9) X10*3/uL [place] # (Auto) 1.0 (0.1-1.2) X10*3/uL Eos # (Auto) 0.2 (0.0-0.4) X10*3/uL Baso # (Auto) 0.1 (0.0-0.2) X10*3/uL Abs Immat Gran (auto) 0.05 H (0.00-0.03) X10*3/uL Absolute Neuts (auto) 4.5 (2.0-8.3) x10*3/uL Absolute Nucleated RBC 0.000 (0.0-0.012) X10*3/uL Nucleated RBC % (auto) 0.0 (0.0-0.2) /100WBC Sodium 138 (135-145) mmol/L Potassium 4.0 (3.3-5.1) mmol/L Chloride 102 (96-108) mmol/L Carbon Dioxide 29 (22-29) mmol/L Anion Gap 11 L (12-20) BUN 20 H (9-16) mg/dL Creatinine 1.31 (0.5-1.4) mg/dL Estim Creat Clear Calc 87.8 Estimated GFR 59 Random Glucose 93 (60-115) mg/dL Calcium 9.6 (8.4-10.2) mg/dL Troponin I High Sens 5.4 (<3.5-35.0) ng/L Discharge Plan Discharge Clinical Impression: Chest pain Patient Disposition: Home, Self-Care Instructions: Chest Pain (ED) Additional Instructions: your chest pain seems to be noncardiac and need further evaluation Continue medications and follow with PCP for further evaluation including stress test Report to ER if chest pain get worse Tramadol for pain Prescriptions: New tramadol 50 mg tablet 50 mg PO Q6H PRN (Reason: pain) Qty: 20 RF: 0 No Action omeprazole magnesium [Prilosec OTC] 20 mg tablet,delayed release (DR/EC) 20 mg PO DAILY Qty: 14 RF: 0 Interventions: ED Discharge Assessment Last Done: 01/06/21 22:49 Discharge Date/Time: 01/06/21 22:50
[2021-01-06 20:04] LABS: MANUAL DIFF FLAG NO
[2021-01-06 20:05] LABS: Basophils Absolute Auto 0.1 X10*3/uL (0.0-0.2); Basophils Percent Auto 0.7 % (0-2); Eosinophils Absolute Auto 0.2 X10*3/uL (0.0-0.4); Eosinophils Percent Auto 2.1 % (0-4); Hematocrit 36.5 % (42.0-52.0); Hemoglobin 12.1 g/dl (14.0-18.0); Imm Gran Abs Auto 0.05 X10*3/uL (0.00-0.03); Imm Gran Pct Auto 0.6 % (0.0-0.4); Lymphocytes Percent Auto 34.2 % (20-40); Mean Corpuscular HGB Conc 33.2 g/dl (31.0-36.0); Mean Corpuscular Hemoglobin 29.9 pg (27.0-33.0); Mean Corpuscular Volume 90.1 fL (80.0-98.0); Mean Platelet Volume 9.3 fL (9.4-12.4); Monocytes Percent Auto 10.9 % (2-11); Neutrophils Absolute Auto 4.5 x10*3/uL (2.0-8.3); Neutrophils Percent Auto 51.5 % (45-73); Platelet Count 208 X10*3/uL (160-400); Red Blood Count 4.05 X10*6/uL (4.60-5.80); Red Cell Distribution Width 12.6 % (11.0-16.0); White Blood Count 8.8 X10*3/uL (4.8-10.8)
[2021-01-06 20:25] LABS: Anion Gap 11 (12-20); Blood Urea Nitrogen 20 mg/dL (9-16); Calcium 9.6 mg/dL (8.4-10.2); Carbon Dioxide 29 mmol/L (22-29); Chloride 102 mmol/L (96-108); Creatinine Clr Calc Pharmacy 87.8; Estimated Glomerular Filt Rate 59; Glucose Random 93 mg/dL (60-115); Sodium 138 mmol/L (135-145)
[2021-01-06 20:33] LABS: Troponin-I High Sensitivity 5.4 ng/L (<3.5-35.0)
[2021-01-06] MEDS: iohexoL 350 MG/ML 100 ML INFUS..BTL IV (20:47)
[2021-01-06 21:49] VITALS: PULSE 68; RESP 15
== END 2021-01-06 22:50 | disposition home or self-care (01) ==
PROVIDERS: Emergency Provider Internal Medicine; PCP Internal Medicine
DX: R07.9 Chest pain, unspecified (principal); R51.9 Headache, unspecified; I10 Essential (primary) hypertension; Z86.711 Personal history of pulmonary embolism; Z79.01 Long term (current) use of anticoagulants
CPT/HCPCS: 36415; 71045; 71275; 80048; 84484; 85025; 93005; 99284; Q9967

== ENCOUNTER 2021-01-27 00:48 | Emergency (ER) | payer OTHER, SELFPAY ==
[2021-01-27 00:50] VITALS: BP 137/89; PULSE 85; RESP 87; TEMP 36; O2SAT 98; BMI 46.3
[2021-01-27 01:25] VITALS: RESP 16
[2021-01-27] MEDS: Tetracaine HCl/PF 0.5% Oph Sol 4 ML DROPS 1 DROP EYE-BOTH (01:49)
[2021-01-27] MEDS: Fluorescein Sodium STRIP 1 STRIP EYE-BOTH (01:49)
--- NOTE | 2021-01-27 01:50 | PC.NURSE ---
MD at bedside examining pt eyes pt tolerating exam well
--- NOTE | 2021-01-27 02:06 | ED_ITS ---
HPI - Eye Problem General Chief complaint: Eye Problems Stated complaint: metal in eyes Time Seen by Provider: 01/27/21 01:14 Source: patient Mode of arrival: ambulatory History of Present Illness HPI Narrative: 45-year-old male who presents with complaints of pain in both eyes, but left is greater than right and states that he was working on a car earlier without eye protection and ?felt like pieces of metal entered is eyes?. Related Data Previous Rx's Medication Instructions Recorded omeprazole magnesium 20 mg 20 mg PO DAILY #14 tab 05/10/20 tablet,delayed release (Prilosec OTC) tramadol 50 mg tablet 50 mg PO Q6H PRN #20 tab 01/06/21 Allergies Allergy/AdvReac Type Severity Reaction Status Date / Time Penicillins [PENICILLINS] Allergy Unknown Rash Unverified 01/27/21 00:50 Review of Systems Review of Systems: Pertinent positives and negatives as stated in HPI 10 point review of systems otherwise negative. PMFSH Past Medical History Source: nursing notes reviewed Medical History Chronic anticoagulation History of blood clots HTN (hypertension) Kidney stones Pulmonary embolism Substance abuse Social History Social History Alcohol intake: former Patient Tobacco Use Status: Never used Tobacco Substance Use Type: Heroin Advance Directives: No Advance Directives Information Provided: No Physical Exam Vital Signs: Vital Signs: Last Vital Signs Temp 96.8 F 01/27/21 00:50 Pulse 85 01/27/21 00:50 Resp 16 01/27/21 01:25 BP 137/89 01/27/21 00:50 Pulse Ox 98 01/27/21 00:50 BMI result Body Mass Index 46.3 VITAL SIGNS: Reviewed. GENERAL: Well developed, well nourished, in no acute distress. HEAD: Normocephalic/atraumatic EYES: PERRLA, EOMI, tetracaine drops placed in each eye OD: No noted corneal abrasion, but noted foreign body at approximately 3:00 a.m. position OS: Or corneal abrasion noted, and questionable foreign body at approximately 4 o'clock position LUNGS: Normal breath sounds. SpO2<98> CARDIOVASCULAR: Regular rate and rhythm without noted murmurs ABDOMEN: Soft, non-tender, non-distended with bowel sounds. Course Course Course Narrative: 45-year-old male who underwent application of tetracaine followed by fluorescein and evaluation by Wood's lamp with findings as described in physical exam. Patient received prescription for erythromycin ointment and provided with an ophthalmology referral. Was otherwise discharged home in stable condition after receiving Tdap, ibuprofen. Discharge Plan Discharge Clinical Impression: Corneal abrasion, Foreign body in eye Patient Disposition: Home, Self-Care Instructions: Corneal Abrasion (ED), Eye Foreign Body (ED) Additional Instructions: 1. Deber? usar esta pomada antibi?deborah en cada paulina, 4 veces al d?a. 2. Se le pinto proporcionado justice remisi?n para kristy a nuestro oftalm?logo, llame a la oficina a primera hora de la ma?jerry. Regrese a la milton de emergencias si los s?ntomas empeoran. Prescriptions: No Action omeprazole magnesium [Prilosec OTC] 20 mg tablet,delayed release (DR/EC) 20 mg PO DAILY Qty: 14 RF: 0 tramadol 50 mg tablet 50 mg PO Q6H PRN (Reason: pain) Qty: 20 RF: 0 Referrals: Spike Guthrie [Physician] - 2 days (Patient without safety glasses with bilateral eye pain, questionable small foreign body in right eye at 3:00 a.m. position, corneal abrasion left eye with questionable foreign body at approximate 4 o'clock position. Patient started on erythromycin ointment.) Print Language: Micronesian
[2021-01-27] MEDS: Diphth,Pertus(ACell),Tet Adult 0.5 ML SYRINGE IM (02:15)
[2021-01-27] MEDS: Ibuprofen 400 MG TABLET PO (02:16)
[2021-01-27] MEDS: Erythromycin Base 0.5% Oph Oin 1 GM TUBE 1 CM EYE-BOTH (02:16)
[2021-01-27 02:19] VITALS: BP 121/74; PULSE 77; RESP 20; O2SAT 95
== END 2021-01-27 02:26 | disposition home or self-care (01) ==
PROVIDERS: Emergency Provider Student in an Organized Health Care Education/Training Program; PCP Internal Medicine
DX: T15.02XA Foreign body in cornea, left eye, initial encounter (principal); I10 Essential (primary) hypertension; X58.XXXA Exposure to other specified factors, initial encounter; Y93.89 Activity, other specified; Y92.9 Unspecified place or not applicable; Y99.9 Unspecified external cause status; Z86.711 Personal history of pulmonary embolism; Z79.01 Long term (current) use of anticoagulants
CPT/HCPCS: 90471; 90715; 99284

== ENCOUNTER 2021-06-19 15:12 | Emergency (ER) | payer OTHER, SELFPAY ==
--- NOTE | ~2021-06-19 | CT_ITS ---
EXAMINATION: CT ABDOMEN AND PELVIS WITHOUT CONTRAST CLINICAL INFORMATION: Pain right-sided COMPARISON: None TECHNIQUE: Multidetector volumetric imaging was performed from the superior aspect of the liver through the pubic symphysis. Sagittal and coronal reformatted images were obtained on the technologist's workstation. This CT examination was performed using dose optimization techniques as appropriate, variously including the following: *Automated exposure control *Adjustment of mA and/or kV according to patient size (this includes techniques or standardized protocols for targeted exams where dose is matched to indication/reason for exam; i.e. extremities or head) *Use of iterative reconstruction technique DLP: 10,024 mGy-cm FINDINGS: LUNG BASES: The visualized lung bases are unremarkable. LIVER, GALLBLADDER, AND BILIARY TREE: Overall low attenuation in the liver most consistent with fatty change. Probable sparing around the gallbladder The gallbladder is unremarkable with no evidence of radiopaque gallstones, gallbladder wall thickening, or obvious pericholecystic inflammatory changes. PANCREAS: Unremarkable. SPLEEN: Unremarkable. ADRENAL GLANDS: Unremarkable. KIDNEYS AND URETERS: Small 1 mm nonobstructing calculus pole right kidney BLADDER: Unremarkable. GASTROINTESTINAL TRACT: The small and large bowel are unremarkable. The appendix is unremarkable. ABDOMINAL WALL: No significant hernia is appreciated. LYMPH NODES: Some nonpathologically enlarged nodes are noted region. VASCULAR: Unremarkable. PELVIC VISCERA: Unremarkable. OSSEOUS STRUCTURES: No suspicion for a lesion. Degenerative changes are noted lower lumbar region. CT/CT abdomen pelvis wo con IMPRESSION: There is no acute finding. The bowel pattern is within normal limits. There is no free fluid. Small 1 to 2 mm nonobstructing stone in the right kidney. The appendix is within normal limits. Overall low-attenuation in the liver which appears prominent in size. Areas of sparing around the gallbladder. This may be consistent with fatty change. Hepatitis could not be excluded. Fleischner guidelines were followed.
--- NOTE | ~2021-06-19 | US_ITS ---
EXAMINATION: US ABDOMEN LIMITED, gallbladder only CLINICAL INFORMATION: Right upper quadrant pain.. COMPARISON: None TECHNIQUE: Real-time imaging of the gallbladder. FINDINGS: GALLBLADDER: Normal. The gallbladder is physiologically distended without evidence of stones, sludge, polyps, wall thickening or pericholecystic fluid. COMMON BILE DUCT: Normal in caliber measuring 0.2 cm in diameter. US/US abdomen limited IMPRESSION: Normal ultrasound of gallbladder. No bile duct dilatation.
[2021-06-19 15:30] VITALS: BP 117/49; PULSE 83; RESP 16; TEMP 36.8; O2SAT 96
[2021-06-19 15:34] VITALS: BP 117/49; PULSE 83; RESP 16; TEMP 36.7; O2SAT 97; BMI 44.4
[2021-06-19 15:53] LABS: MANUAL DIFF FLAG NO
[2021-06-19 15:55] LABS: Basophils Absolute Auto 0.1 X10*3/uL (0.0-0.2); Basophils Percent Auto 0.7 % (0-2); Eosinophils Absolute Auto 0.2 X10*3/uL (0.0-0.4); Eosinophils Percent Auto 1.9 % (0-4); Hematocrit 37.6 % (42.0-52.0); Hemoglobin 12.2 g/dl (14.0-18.0); Imm Gran Abs Auto 0.05 X10*3/uL (0.00-0.03); Imm Gran Pct Auto 0.6 % (0.0-0.4); Lymphocytes Absolute Auto 2.6 X10*3/uL (1.2-4.9); Lymphocytes Percent Auto 31.8 % (20-40); Mean Corpuscular HGB Conc 32.4 g/dl (31.0-36.0); Mean Corpuscular Hemoglobin 28.8 pg (27.0-33.0); Mean Corpuscular Volume 88.7 fL (80.0-98.0); Mean Platelet Volume 9.5 fL (9.4-12.4); Monocytes Absolute Auto 0.7 X10*3/uL (0.1-1.2); Monocytes Percent Auto 8.6 % (2-11); Neutrophils Absolute Auto 4.5 x10*3/uL (2.0-8.3); Neutrophils Percent Auto 56.4 % (45-73); Platelet Count 221 X10*3/uL (160-400); Red Blood Count 4.24 X10*6/uL (4.60-5.80); Red Cell Distribution Width 12.8 % (11.0-16.0)
[2021-06-19 16:11] LABS: Appearance Urine CLEAR; Color Urine YELLOW; Glucose Urine UA NEG (NEG); Leukocyte Esterase Urine NEG (NEG); Nitrite Urine NEG (NEG); PH 5.5 (5.0-8.0); Specific Gravity - Urine 1.025 (1.005-1.025); Urine Blood NEG (NEG); Urine Ketones NEG (NEG); Urine Protein NEG (NEG-TRACE)
[2021-06-19] MEDS: Acetaminophen 325 MG TABLET 975 MG PO (16:18)
[2021-06-19 16:23] LABS: Alanine Aminotransferase 43 U/L (0-40); Alkaline Phosphatase 69 U/L (39-117); Anion Gap 14 (12-20); Aspartate Amino Transferase 32 U/L (5-37); Bilirubin Direct < 0.2 mg/dL (0.0-0.5); Bilirubin Total 0.3 mg/dL (0.0-1.0); Blood Urea Nitrogen 21 mg/dL (9-16); Calcium 9.6 mg/dL (8.4-10.2); Carbon Dioxide 26 mmol/L (22-29); Chloride 104 mmol/L (96-108); Creatinine Clr Calc Pharmacy 95.4; Estimated Glomerular Filt Rate > 60; Glucose Random 127 mg/dL (60-115); Lipase 46 U/L (8-78); Potassium 3.9 mmol/L (3.3-5.1); Sodium 140 mmol/L (135-145); Total Protein 7.6 g/dL (6.5-8.0)
--- NOTE | 2021-06-19 17:57 | ED_ITS ---
HPI - Abdominal Pain General Chief Complaint: Abdominal Pain Stated Complaint: abd pain Time Seen by Provider: 06/19/21 15:24 Source: patient Mode of arrival: ambulatory Limitations: no limitations History of Present Illness HPI narrative: 45-year-old male who presents emergency department for evaluation of right-sided abdominal pain x3 weeks. He states the pain is intermittent. He does get a daily. The pain is not related to eating or being hungry. He states that the pain is usually there in the morning in the afternoon. He points to the right side of his abdomen asked to localize the pain. He states that there is a sharp component for lasts about 30 minutes and then a dull component the last several hours. The pain is 8/10 at its worst. At the time of evaluation the pain was 6/10. The patient denied fever, chills, rhinorrhea, sore throat, cough, chest pain, shortness of breath, nausea, vomiting, diarrhea. He denied frequency cover urgency or dysuria. He has not noticed any black tarry stools bloody stools or change in his bowel movements. Patient states he does have a history of kidney stones and has had lithotripsy in the past, this pain is different than his kidney stone pain. Related Data Previous Rx's Medication Instructions Recorded omeprazole magnesium 20 mg 20 mg PO DAILY #14 tab 05/10/20 tablet,delayed release (Prilosec OTC) tramadol 50 mg tablet 50 mg PO Q6H PRN #20 tab 01/06/21 famotidine 20 mg tablet (Pepcid) 20 mg PO DAILY #30 tab 06/19/21 Allergies Allergy/AdvReac Type Severity Reaction Status Date / Time Penicillins [PENICILLINS] Allergy Unknown Rash Unverified 01/27/21 00:50 Review of Systems Review of Systems Yes all other systems are reviewed and are negative [facility] Past Medical History [facility] Narrative: Social history: The patient is a former smoker and quit 3 years prior. He smoked for 23 years. Denies alcohol use. He denies drug use. 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 Medical History Chronic anticoagulation History of blood clots HTN (hypertension) Kidney stones Pulmonary embolism Substance abuse Social History Social History Alcohol intake: former Patient Tobacco Use Status: Never used Tobacco Substance Use Type: Heroin Advance Directives: No Advance Directives Information Provided: No Physical Exam ED Vital Signs: Vital Signs - 24 hr 06/19/21 15:30 06/19/21 15:34 Temperature 98.3 F 98.0 F Pulse Rate 83 83 Respiratory Rate 16 16 Blood Pressure 117/49 L 117/49 L Pulse Oximetry 96 97 BMI result Body Mass Index 44.4 Const General: cooperative and no acute distress Orientation/consciousness: oriented to person and oriented to place Limitations: no limitations HENMT Head: Yes normal to inspection, Yes normocephalic and Yes atraumatic Ears: external ears normal General nose exam: Normal external nose present Face and sinus: Yes normal facial exam Mouth: Normal oral and palatal mucosa present Throat: Yes posterior oropharynx normal Eyes General: appearance normal, both eyes and all related structures Pupils: Equal, round and reactive pupils present Neck Neck: Yes normal visual inspection, Yes no lymphadenopathy, Yes trachea midline and Yes supple Chest Chest palpation & inspection: normal inspection of the chest and normal palpation of entire chest wall Resp Effort & Inspection: normal respiratory effort and able to speak in complete sentences Auscultation: clear to auscultation bilaterally Cardio Rate: regular rate Rhythm: regular rhythm Heart sounds: S1 normal heart sound present, S2 normal heart sound present and no murmurs GI Inspection: Yes normal to inspection Palpation (GI): Soft to palpation, Tenderness to palpation present (GI) ([id number] right upper quadrant and right lower quadrant tenderness) and no guarding Auscultation: normal bowel sounds General: Yes no CVA tenderness Back/Spine/Pelvis Back: no CVA tenderness Skin General skin exam: no rashes or lesions noted Neuro General: oriented to person and oriented to place Cranial nerves: Yes CN's II-XII intact bilaterally and Yes Equal, round and reactive pupils present Cognition (Neuro): normal cognition Motor exam (neuro): 5/5 motor strength present throughout Extrem General: Yes normal to inspection Psych Appearance: grossly normal Speech and movement: Normal speech and movement present Affect: normal affect Attitude: cooperative Thought process: Normal thought process present Thought content: Normal thought content present Course Course Course Narrative: 45-year-old male with a history of pulmonary embolism on Xarelto, hypertension who presents emergency department for evaluation of intermittent right upper quadrant and right lower quadrant abdominal pain x3 weeks. The patient has been getting episodes daily, these are not related to his food intake or being hungry. Patient's vital signs were unremarkable. The patient did have right upper and right lower quadrant tenderness. Laboratory evaluation was ordered, CT of the abdomen pelvis without IV contrast and ultrasound of the gallbladder was ordered as well. Patient was given Tylenol for his pain. 1803: Patient's laboratory evaluation was relatively unremarkable, glucose was elevated 126, PT was elevated 1.6 and ALT was elevated 43. CT scan of the abdomen pelvis without IV contrast did reveal a 2 mm right kidney stone with no obstruction and no ureteral stone or dilatation. Right upper quadrant ultrasound was normal with no gallstones. This time I do not have a clear etiology for the patient's pain. It is possible that his pain may be secondary to gastritis I did discuss this with him. Patient was started on Pepcid 20 mg once a day. He was given printed and verbal instructions advised to follow-up with his doctor. MDM - Abdominal Pain Lab Data Result diagrams: 06/19/21 15:49 06/19/21 15:49 Labs: Lab Results 06/19/21 06/19/21 06/19/21 Range/Units 15:49 15:49 16:00 WBC 8.0 (4.8-10.8) X10*3/uL RBC 4.24 L (4.60-5.80) X10*6/uL Hgb 12.2 L (14.0-18.0) g/dl Hct 37.6 L (42.0-52.0) % MCV 88.7 (80.0-98.0) fL MCH 28.8 (27.0-33.0) pg MCHC 32.4 (31.0-36.0) g/dl RDW 12.8 (11.0-16.0) % Plt Count 221 (160-400) X10*3/uL MPV 9.5 (9.4-12.4) fL Immature Gran % (Auto) 0.6 H (0.0-0.4) % Neut % (Auto) 56.4 (45-73) % Lymph % (Auto) 31.8 (20-40) % [place] % (Auto) 8.6 (2-11) % Eos % (Auto) 1.9 (0-4) % Baso % (Auto) 0.7 (0-2) % Lymph # (Auto) 2.6 (1.2-4.9) X10*3/uL [place] # (Auto) 0.7 (0.1-1.2) X10*3/uL Eos # (Auto) 0.2 (0.0-0.4) X10*3/uL Baso # (Auto) 0.1 (0.0-0.2) X10*3/uL Abs Immat Gran (auto) 0.05 H (0.00-0.03) X10*3/uL Absolute Neuts (auto) 4.5 (2.0-8.3) x10*3/uL Absolute Nucleated RBC 0.000 (0.0-0.012) X10*3/uL Nucleated RBC % (auto) 0.0 (0.0-0.2) /100WBC Sodium 140 (135-145) mmol/L Potassium 3.9 (3.3-5.1) mmol/L Chloride 104 (96-108) mmol/L Carbon Dioxide 26 (22-29) mmol/L Anion Gap 14 (12-20) BUN 21 H (9-16) mg/dL Creatinine 1.22 (0.5-1.4) mg/dL Estim Creat Clear Calc 95.4 Estimated GFR > 60 Random Glucose 127 H D (60-115) mg/dL Calcium 9.6 (8.4-10.2) mg/dL Magnesium 2.0 (1.6-2.6) mg/dL Total Bilirubin 0.3 (0.0-1.0) mg/dL Direct Bilirubin < 0.2 (0.0-0.5) mg/dL AST 32 (5-37) U/L ALT 43 H (0-40) U/L Alkaline Phosphatase 69 (39-117) U/L Total Protein 7.6 (6.5-8.0) g/dL Albumin 4.0 (3.5-5.0) g/dL Lipase 46 (8-78) U/L Urine Color YELLOW Urine Appearance CLEAR Urine pH 5.5 (5.0-8.0) Ur Specific [place] 1.025 (1.005-1.025) Urine Protein NEG (NEG-TRACE) MG/DL Urine Glucose (UA) NEG (NEG) MG/DL Urine Ketones NEG (NEG) MG/DL Urine Blood NEG (NEG) Urine Nitrite NEG (NEG) Ur Leukocyte Esterase NEG (NEG) Discharge Plan Discharge Clinical Impression: Abdominal pain Qualifiers: Abdominal location: right upper quadrant Qualified Code(s): R10.11 - Right upper quadrant pain Gastritis Qualifiers: Gastritis type: unspecified gastritis Chronicity: acute Gastritis bleeding: without bleeding Qualified Code(s): K29.00 - Acute gastritis without bleeding Patient Disposition: Home, Self-Care Instructions: Gastritis (ED) Additional Instructions: Your blood work was unremarkable except for a slightly elevated glucose (blood sugar) of 127. This can sometimes me that you were going to developed diabetes in the future, the treatment at this time is to try to lose weight and that should and improve your body's ability to handle glucose (sugar). The CT scan of your abdomen pelvis did reveal a 2 mm kidney stone on the right but this is not the cause of your pain. The ultrasound of your liver revealed no stones in your gallbladder and no inflammation of your gallbladder. At this time I do not have a clear cause for your pain but I am concerned that it may be caused by inflammation of your stomach (gastritis). Take Tylenol (acetaminophen) 500 mg pills, 2 pills every 4 to 6 hours as needed for pain. Take Pepcid (famotidine) 20 mg once a day for 1 month, this medicine reduces the amount of acid they produce will help inflammation in your stomach Follow-up with your doctor in 2 days. Please return to the emergency department if your symptoms get worse or if you develop any symptoms that are concerning to you. Prescriptions: New famotidine [Pepcid] 20 mg tablet 20 mg PO DAILY Qty: 30 0RF No Action omeprazole magnesium [Prilosec OTC] 20 mg tablet,delayed release (DR/EC) 20 mg PO DAILY Qty: 14 0RF tramadol 50 mg tablet 50 mg PO Q6H PRN (Reason: pain) Qty: 20 0RF
== END 2021-06-19 18:31 | disposition home or self-care (01) ==
PROVIDERS: Emergency Medicine; Emergency Provider Emergency Medicine Emergency Medical Services; PCP Internal Medicine
DX: K29.00 Acute gastritis without bleeding (principal); R10.31 Right lower quadrant pain; Z79.899 Other long term (current) drug therapy
CPT/HCPCS: 36415; 74176; 76705; 80048; 80076; 81003; 83690; 83735; 85025; 99284

== ENCOUNTER 2021-08-06 09:18 | Emergency (ER) | payer OTHER, SELFPAY ==
--- NOTE | 2021-08-06 | ECG_ITS ---
Test Reason : cp Blood Pressure : / mmHG Vent. Rate : 099 BPM Atrial Rate : 099 BPM P-R Int : 136 ms QRS Dur : 092 ms QT Int : 346 ms P-R-T Axes : 039 017 028 degrees QTc Int : 444 ms Normal sinus rhythm Normal ECG When compared with ECG of 06-JAN-2021 17:12, No significant change was found Referred By: Generic ED Physician Electronically Signed By:BRINANA ISLAS MD
--- NOTE | ~2021-08-06 | XR_ITS ---
EXAMINATION: XR CHEST CLINICAL INFORMATION: Chest pain COMPARISON: Chest 01/06/2021 TECHNIQUE: Frontal view of the chest was obtained. FINDINGS: No significant abnormality is noted involving the heart, lungs, mediastinum, bony thorax or soft tissues. XR/XR chest 1V IMPRESSION: Unremarkable chest examination.
[2021-08-06 09:21] VITALS: BP 141/73; PULSE 98; RESP 20; TEMP 36.8; O2SAT 96; BMI 49.9
[2021-08-06 09:38] LABS: Basophils Absolute Auto 0.1 X10*3/uL (0.0-0.2); Basophils Percent Auto 0.7 % (0-2); Eosinophils Absolute Auto 0.1 X10*3/uL (0.0-0.4); Eosinophils Percent Auto 1.4 % (0-4); Hematocrit 37.7 % (42.0-52.0); Hemoglobin 12.7 g/dl (14.0-18.0); Imm Gran Abs Auto 0.07 X10*3/uL (0.00-0.03); Imm Gran Pct Auto 0.8 % (0.0-0.4); Lymphocytes Absolute Auto 2.8 X10*3/uL (1.2-4.9); Lymphocytes Percent Auto 31.8 % (20-40); MANUAL DIFF FLAG NO; Mean Corpuscular HGB Conc 33.7 g/dl (31.0-36.0); Mean Corpuscular Hemoglobin 29.5 pg (27.0-33.0); Mean Corpuscular Volume 87.5 fL (80.0-98.0); Mean Platelet Volume 9.3 fL (9.4-12.4); Monocytes Absolute Auto 0.7 X10*3/uL (0.1-1.2); Monocytes Percent Auto 7.5 % (2-11); Neutrophils Percent Auto 57.8 % (45-73); Platelet Count 230 X10*3/uL (160-400); Red Blood Count 4.31 X10*6/uL (4.60-5.80); Red Cell Distribution Width 12.8 % (11.0-16.0); White Blood Count 8.7 X10*3/uL (4.8-10.8)
--- NOTE | 2021-08-06 09:42 | ED_ITS ---
HPI - Chest Pain General Chief Complaint: Chest Pain Stated Complaint: Chest Pain Radiating to Back Time Seen by Provider: 08/06/21 09:34 Source: patient Mode of arrival: ambulatory Limitations: no limitations History of Present Illness MD complaint: chest pain Pertinent past history: other (PE in past but compliant with xarelto) Onset (ago): day(s) (yesterday ) Timing of current episode: constant Prior episodes: Yes Onset: during rest Pain location: substernal Pain radiation: none (into left chest into back) Severity: moderate Quality: sharp and burning Relieving factors: nothing Exacerbating factors: palpation (states his chest wall hurts to touch) and mo vement Context: other (hx of similar bouts in past but denies food exposures, compliant with all medications, no drug use) Associated symptoms: nausea Treatment prior to arrival: none Related Data Previous Rx's Medication Instructions Recorded omeprazole magnesium 20 mg 20 mg PO DAILY #14 tabs 05/10/20 tablet,delayed release (Prilosec OTC) tramadol 50 mg tablet 50 mg PO Q6H PRN pain #20 tabs 01/06/21 famotidine 20 mg tablet (Pepcid) 20 mg PO DAILY #30 tabs 06/19/21 cyclobenzaprine 10 mg tablet 10 mg PO TID PRN muscle spasm #14 08/06/21 tabs lidocaine 4 % topical patch 1 patch topical DAILY PRN pain #10 08/06/21 ea Allergies Allergy/AdvReac Type Severity Reaction Status Date / Time Penicillins [PENICILLINS] Allergy Unknown Rash Unverified 01/27/21 00:50 Review of Systems Review of Systems: Constitutional : No Weight loss, No Fever, No Chills ENT/Mouth : No sore throat, No Rhinorrhea Eyes: No Eye Pain, No Swelling Cardiovascular : pos Chest Pain, no SOB, no Dyspnea on Exertion, No Orthopnea, No Edema, No Palpitations Respiratory : No Cough, No Sputum Gastrointestinal : pos Nausea, No Vomiting, No Diarrhea, No abdominal Pain, No Hematochezia, No Melena Genitourinary : No Dysuria, No Urinary Frequency Musculoskeletal : No joint pain, No Myalgias, No Joint Swelling Skin : No Skin Lesions, No rash Neuro : No Weakness, No Numbness, No Dizziness, No Headache Psych : No Anxiety/Panic, No Depression Heme/Lymph: No Bruising, No Lymphadenopathy Endocrine : No Polyuria, No Polydipsia All other systems reviewed and are negative [facility] Past Medical History Attestation statement: The following information was validated with the patient. Medical History Chronic anticoagulation GERD (gastroesophageal reflux disease) History of blood clots HTN (hypertension) Kidney stones Pulmonary embolism Substance abuse Social History Social History (Updated 08/06/21 @ 10:08 by Natalie Llamas DO) Alcohol intake: former Patient Tobacco Use Status: Former Tobacco user Use of substances other than those prescribed or required for medical reasons: No Substance Use Type: Former Substance User and Heroin Advance Directives: No Advance Directives Information Provided: No Physical Exam Vital Signs: Vital Signs: Last Vital Signs Temp 97.7 F 08/06/21 12:31 Pulse 77 08/06/21 12:31 Resp 15 08/06/21 12:31 BP 120/71 08/06/21 12:31 Pulse Ox 96 08/06/21 12:31 O2 Del Method 08/06/21 12:31 BMI result Body Mass Index 49.9 Appearance: Alert. Oriented X3. No acute distress. Eyes: Pupils equal, round and reactive to light. ENT: Pharynx normal. Neck: Normal inspection. Neck supple. CVS: Normal heart rate and rhythm. Pulses normal. Chest: ttp along costochondral border Respiratory: No respiratory distress. Breath sounds normal. Abdomen: Soft and nontender. Skin: Skin warm and dry. Normal skin color. Normal skin turgor. Extremities: No lower extremity edema. No calf ttp Neuro: Oriented X 3. No motor deficit. No sensory deficit. Course Course Course Narrative: nonspecific EKG, atypical pain, trop negative x 2, feels better stable for DC MDM - Chest Pain MDM Narrative Medical decision making narrative: 45 yo male with hx of GERD, PE on chronic xarelto here with c/o reproduceable chest pain that started yesterday. He denies recent cold/cough. It is atypical in nature and worse with palpation. He is compliant with xarelto so PE seems unlikely. BP stable and distal pulses intact patient looks comfortable doubt dissection. Will obtain labs, troponin x 2, GI cocktail and flexeril. Dispo per results and findings. Lab Data Result diagrams: 08/06/21 09:32 08/06/21 09:32 Labs: Lab Results 08/06/21 08/06/21 08/06/21 Range/Units 09:32 09:32 09:32 WBC 8.7 (4.8-10.8) X10*3/uL RBC 4.31 L (4.60-5.80) X10*6/uL Hgb 12.7 L (14.0-18.0) g/dl Hct 37.7 L (42.0-52.0) % MCV 87.5 (80.0-98.0) fL MCH 29.5 (27.0-33.0) pg MCHC 33.7 (31.0-36.0) g/dl RDW 12.8 (11.0-16.0) % Plt Count 230 (160-400) X10*3/uL MPV 9.3 L (9.4-12.4) fL Immature Gran % (Auto) 0.8 H (0.0-0.4) % Neut % (Auto) 57.8 (45-73) % Lymph % (Auto) 31.8 (20-40) % [place] % (Auto) 7.5 (2-11) % Eos % (Auto) 1.4 (0-4) % Baso % (Auto) 0.7 (0-2) % Lymph # (Auto) 2.8 (1.2-4.9) X10*3/uL [place] # (Auto) 0.7 (0.1-1.2) X10*3/uL Eos # (Auto) 0.1 (0.0-0.4) X10*3/uL Baso # (Auto) 0.1 (0.0-0.2) X10*3/uL Abs Immat Gran (auto) 0.07 H (0.00-0.03) X10*3/uL Absolute Neuts (auto) 5.0 (2.0-8.3) x10*3/uL Absolute Nucleated RBC 0.000 (0.0-0.012) X10*3/uL Nucleated RBC % (auto) 0.0 (0.0-0.2) /100WBC Sodium 138 (135-145) mmol/L Potassium 3.8 (3.3-5.1) mmol/L Chloride 103 (96-108) mmol/L Carbon Dioxide 25 (22-29) mmol/L Anion Gap 14 (12-20) BUN 21 H (9-16) mg/dL Creatinine 1.26 (0.5-1.4) mg/dL Estim Creat Clear Calc 95.6 Estimated GFR > 60 Random Glucose 152 H (60-115) mg/dL Calcium 9.9 (8.4-10.2) mg/dL Magnesium 1.9 (1.6-2.6) mg/dL Total Bilirubin 0.3 (0.0-1.0) mg/dL Direct Bilirubin < 0.2 (0.0-0.5) mg/dL AST 36 (5-37) U/L ALT 48 H (0-40) U/L Alkaline Phosphatase 89 D (39-117) U/L Troponin I High Sens 6.2 (<3.5-35.0) ng/L B-Natriuretic Peptide 24 (<100) pg/mL Total Protein 7.9 (6.5-8.0) g/dL Albumin 4.4 (3.5-5.0) g/dL Lipase 42 (8-78) U/L Urine Opiates Screen (Not Detect) Urine Fentanyl Screen (Not Detect) Ur Barbiturates Screen (Not Detect) Ur Phencyclidine Scrn (Not Detect) Ur Amphetamines Screen (Not Detect) U Benzodiazepines Scrn (Not Detect) Urine Cocaine Screen (Not Detect) U Marijuana (THC) Screen (Not Detect) 08/06/21 08/06/21 Range/Units 10:05 11:33 WBC (4.8-10.8) X10*3/uL RBC (4.60-5.80) X10*6/uL Hgb (14.0-18.0) g/dl Hct (42.0-52.0) % MCV (80.0-98.0) fL MCH (27.0-33.0) pg MCHC (31.0-36.0) g/dl RDW (11.0-16.0) % Plt Count (160-400) X10*3/uL MPV (9.4-12.4) fL Immature Gran % (Auto) (0.0-0.4) % Neut % (Auto) (45-73) % Lymph % (Auto) (20-40) % [place] % (Auto) (2-11) % Eos % (Auto) (0-4) % Baso % (Auto) (0-2) % Lymph # (Auto) (1.2-4.9) X10*3/uL [place] # (Auto) (0.1-1.2) X10*3/uL Eos # (Auto) (0.0-0.4) X10*3/uL Baso # (Auto) (0.0-0.2) X10*3/uL Abs Immat Gran (auto) (0.00-0.03) X10*3/uL Absolute Neuts (auto) (2.0-8.3) x10*3/uL Absolute Nucleated RBC (0.0-0.012) X10*3/uL Nucleated RBC % (auto) (0.0-0.2) /100WBC Sodium (135-145) mmol/L Potassium (3.3-5.1) mmol/L Chloride (96-108) mmol/L Carbon Dioxide (22-29) mmol/L Anion Gap (12-20) BUN (9-16) mg/dL Creatinine (0.5-1.4) mg/dL Estim Creat Clear Calc Estimated GFR Random Glucose (60-115) mg/dL Calcium (8.4-10.2) mg/dL Magnesium (1.6-2.6) mg/dL Total Bilirubin (0.0-1.0) mg/dL Direct Bilirubin (0.0-0.5) mg/dL AST (5-37) U/L ALT (0-40) U/L Alkaline Phosphatase (39-117) U/L Troponin I High Sens 5.4 (<3.5-35.0) ng/L B-Natriuretic Peptide (<100) pg/mL Total Protein (6.5-8.0) g/dL Albumin (3.5-5.0) g/dL Lipase (8-78) U/L Urine Opiates Screen Not Detected (Not Detect) Urine Fentanyl Screen Not Detected (Not Detect) Ur Barbiturates Screen Not Detected (Not Detect) Ur Phencyclidine Scrn Not Detected (Not Detect) Ur Amphetamines Screen Not Detected (Not Detect) U Benzodiazepines Scrn Not Detected (Not Detect) Urine Cocaine Screen Not Detected (Not Detect) U Marijuana (THC) Screen Not Detected (Not Detect) ECG Data ECG #1: Attestation: I personally reviewed and interpreted this ECG as follows: ECG interpretation date: 08/06/21 ECG interpretation time: 09:44 Interpretation: Rate: 99 Rhythm: NSR Fieldon: normal Normal P waves. Normal ANA. Normal QRS complex. ST T wave : no TERRANCE, nonspecific qTC: normal prior studies: no acute ischemia The study has been interpreted contemporaneously by me. . Discharge Plan Discharge Clinical Impression: Atypical chest pain Patient Disposition: Home, Self-Care Instructions: Chest Pain (ED) Additional Instructions: return to ED for any worsening symptoms or concerns please follow up with your doctor next week for possible outpatient stress test for your heart Prescriptions: New cyclobenzaprine 10 mg tablet 10 mg PO TID PRN (Reason: muscle spasm) Qty: 14 0RF lidocaine 4 % adhesive patch,medicated 1 patch topical DAILY PRN (Reason: pain) Qty: 10 0RF Rx Instructions: may leave on for up to 12 hrs No Action omeprazole magnesium [Prilosec OTC] 20 mg tablet,delayed release (DR/EC) 20 mg PO DAILY Qty: 14 0RF famotidine [Pepcid] 20 mg tablet 20 mg PO DAILY Qty: 30 0RF tramadol 50 mg tablet 50 mg PO Q6H PRN (Reason: pain) Qty: 20 0RF Referrals: Dian Chu [Primary Care Provider] - 08/07/21
[2021-08-06 09:54] LABS: Anion Gap 14 (12-20); Blood Urea Nitrogen 21 mg/dL (9-16); Calcium 9.9 mg/dL (8.4-10.2); Carbon Dioxide 25 mmol/L (22-29); Chloride 103 mmol/L (96-108); Creatinine Clr Calc Pharmacy 95.6; Estimated Glomerular Filt Rate > 60; Glucose Random 152 mg/dL (60-115); Potassium 3.8 mmol/L (3.3-5.1); Sodium 138 mmol/L (135-145)
[2021-08-06 09:57] LABS: B Type Natriuretic Peptide 24 pg/mL (<100); Troponin-I High Sensitivity 6.2 ng/L (<3.5-35.0)
[2021-08-06 10:03] LABS: Alanine Aminotransferase 48 U/L (0-40); Albumin Level 4.4 g/dL (3.5-5.0); Alkaline Phosphatase 89 U/L (39-117); Aspartate Amino Transferase 36 U/L (5-37); Bilirubin Direct < 0.2 mg/dL (0.0-0.5); Bilirubin Total 0.3 mg/dL (0.0-1.0); Lipase 42 U/L (8-78); Magnesium 1.9 mg/dL (1.6-2.6); Total Protein 7.9 g/dL (6.5-8.0)
[2021-08-06] MEDS: Cyclobenzaprine HCl 10 MG TABLET PO (10:14)
[2021-08-06] MEDS: Lidocaine HCl Viscous 2 % 15 ML SOLUTION MUCOUS MEM (10:15)
[2021-08-06] MEDS: Magnesium Hydrox/Alum Hydrox 30 ML ORAL.SUSP PO (10:15)
[2021-08-06 10:27] LABS: Amphetamine Screen Urine Not Detected (Not Detect); Barbiturates, Urine Not Detected (Not Detect); Benzodiazepines Screen Urine Not Detected (Not Detect); Cannabinoid Screen Urine Not Detected (Not Detect); Cocaine Screen Urine Not Detected (Not Detect); Fentanyl, urine Not Detected (Not Detect); Opiate Screen Urine Not Detected (Not Detect); Phencyclidine Screen Urine Not Detected (Not Detect)
[2021-08-06 12:12] LABS: Troponin-I High Sensitivity 5.4 ng/L (<3.5-35.0)
[2021-08-06 12:31] VITALS: BP 120/71; PULSE 77; RESP 15; TEMP 36.5; O2SAT 96
--- NOTE | 2021-08-06 12:37 | PC.NURSE ---
pt alert and oriented withno distress. waiting on disposition and lab tests
== END 2021-08-06 13:56 | disposition home or self-care (01) ==
PROVIDERS: Emergency Provider Emergency Medicine; PCP Internal Medicine
DX: R07.89 Other chest pain (principal); M54.50 Low back pain, unspecified; Z79.899 Other long term (current) drug therapy; Z87.891 Personal history of nicotine dependence
CPT/HCPCS: 36415; 71045; 80048; 80076; 80307; 83690; 83735; 83880; 84484; 85025; 93005; 99283; 99285

== ENCOUNTER 2021-11-24 15:49 | Emergency (ER) | payer OTHER, SELFPAY ==
--- NOTE | 2021-11-24 | ECG_ITS ---
Test Reason : CHEST PAIN Blood Pressure : / mmHG Vent. Rate : 079 BPM Atrial Rate : 079 BPM P-R Int : 124 ms QRS Dur : 094 ms QT Int : 384 ms P-R-T Axes : 028 016 021 degrees QTc Int : 440 ms Normal sinus rhythm Intra-ventricular conduction delay Otherwise normal ECG When compared with ECG of 06-AUG-2021 09:18, No significant change was found Referred By: Generic ED Physician Electronically Signed By:AG FRIAS MD
--- NOTE | ~2021-11-24 | XR_ITS ---
EXAMINATION: XR CHEST CLINICAL INFORMATION: Chest pain COMPARISON: Chest x-ray 08/06/2021 TECHNIQUE: Frontal view of the chest was obtained. 1610 hours FINDINGS: No significant abnormality is noted involving the heart, lungs, mediastinum, bony thorax or soft tissues. XR/XR chest 1V IMPRESSION: Unremarkable examination.
[2021-11-24 15:52] VITALS: BP 133/79; PULSE 89; RESP 20; TEMP 36.4; O2SAT 96; BMI 43.5
[2021-11-24 16:09] LABS: MANUAL DIFF FLAG NO
[2021-11-24 16:12] LABS: Basophils Percent Auto 0.6 % (0-2); Eosinophils Absolute Auto 0.1 X10*3/uL (0.0-0.4); Eosinophils Percent Auto 1.6 % (0-4); Hematocrit 35.8 % (42.0-52.0); Imm Gran Abs Auto 0.03 X10*3/uL (0.00-0.03); Imm Gran Pct Auto 0.4 % (0.0-0.4); Lymphocytes Percent Auto 29.2 % (20-40); Mean Corpuscular HGB Conc 33.5 g/dl (31.0-36.0); Mean Corpuscular Hemoglobin 29.3 pg (27.0-33.0); Mean Corpuscular Volume 87.5 fL (80.0-98.0); Mean Platelet Volume 9.9 fL (9.4-12.4); Monocytes Absolute Auto 0.6 X10*3/uL (0.1-1.2); Monocytes Percent Auto 8.6 % (2-11); Neutrophils Percent Auto 59.6 % (45-73); Platelet Count 187 X10*3/uL (160-400); Red Blood Count 4.09 X10*6/uL (4.60-5.80); Red Cell Distribution Width 12.7 % (11.0-16.0); White Blood Count 6.8 X10*3/uL (4.8-10.8)
[2021-11-24 16:27] LABS: Anion Gap 15 (12-20); Blood Urea Nitrogen 19 mg/dL (9-16); Calcium 9.3 mg/dL (8.4-10.2); Carbon Dioxide 28 mmol/L (22-29); Chloride 102 mmol/L (96-108); Creatinine Clr Calc Pharmacy 89.7; Estimated Glomerular Filt Rate > 60; Glucose Random 131 mg/dL (60-115); Potassium 3.9 mmol/L (3.3-5.1); Sodium 141 mmol/L (135-145)
[2021-11-24 16:32] LABS: Troponin-I High Sensitivity < 3.5 ng/L (<3.5-35.0)
[2021-11-24 20:58] VITALS: BP 128/71; PULSE 65; RESP 16; TEMP 36.8; O2SAT 98
--- NOTE | 2021-11-24 21:53 | ED_ITS ---
HPI - Chest Pain General Chief Complaint: Chest Pain Stated Complaint: Sharp chest pain/L arm numbness Time Seen by Provider: 11/24/21 21:10 History of Present Illness HPI narrative: Patient is a 46-year-old male with a history of blood clots in the past. Presents today with having chest pain that is in the mid chest it lasts for 1-2 seconds over associated with radiation to the left arm. Not associated with shortness of breath no diaphoresis. No nausea no vomiting. Patient had a previous history of blood clots in the past but takes Xarelto religiously. No fever no chills no coughing or congestion or upper respiratory symptom. Positive history of hypertension. No history of high cholesterol no history of RI no family history of RI patient is from home. No travel history no new leg swelling. Currently has no chest pain. Have not had a recent stress test. Related Data Previous Rx's Medication Instructions Recorded omeprazole magnesium 20 mg 20 mg PO DAILY #14 tabs 05/10/20 tablet,delayed release (Prilosec OTC) tramadol 50 mg tablet 50 mg PO Q6H PRN pain #20 tabs 01/06/21 famotidine 20 mg tablet (Pepcid) 20 mg PO DAILY #30 tabs 06/19/21 cyclobenzaprine 10 mg tablet 10 mg PO TID PRN muscle spasm #14 08/06/21 tabs lidocaine 4 % topical patch 1 patch topical DAILY PRN pain #10 08/06/21 ea Allergies Allergy/AdvReac Type Severity Reaction Status Date / Time Penicillins [PENICILLINS] Allergy Unknown Rash Unverified 01/27/21 00:50 Review of Systems Review of Systems: No fever no chills no cough no congestion or upper respiratory symptoms. Yes all other systems are reviewed and are negative [facility] Past Medical History Attestation statement: The following information was validated with the patient. Medical History Chronic anticoagulation GERD (gastroesophageal reflux disease) History of blood clots HTN (hypertension) Kidney stones Pulmonary embolism Substance abuse Social History Social History Alcohol intake: former Patient Tobacco Use Status: Former Tobacco user Use of substances other than those prescribed or required for medical reasons: No Substance Use Type: Former Substance User and Heroin Advance Directives: No Physical Exam Vital Signs: Vital Signs: Last Vital Signs Temp 98.3 F 11/24/21 20:58 Pulse 65 11/24/21 20:58 Resp 16 11/24/21 20:58 BP 128/71 11/24/21 20:58 Pulse Ox 98 11/24/21 20:58 O2 Del Method 11/24/21 20:58 BMI result Body Mass Index 43.5 Appearance: Alert. Oriented X3. No acute distress. Eyes: Pupils equal, round and reactive to light. ENT: Pharynx normal. Neck: Normal inspection. Neck supple. No lymph nodes noted. No crepitus CVS: Normal heart rate and rhythm. Pulses normal. Normal S1 and S2 Respiratory: No respiratory distress. Breath sounds normal. No Wheezing. No rales Abdomen: Soft and nontender. No rigidity. No distention. good BS x4 Skin: Skin warm and dry. Normal skin color. Normal skin turgor. Extremities: No lower extremity edema. Neurovascular intact to all extremities. No Lacerations. No Rash Neuro: Oriented X 3. No motor deficit. No sensory deficit. Moving all extermities. No slurred speech MDM - Chest Pain MDM Narrative Medical decision making narrative: EKG showed a sinus pattern heart rate is 70 NM QRS QT within normal limits is no acute ST segment elevation. Patient in no distress. The chest pain was 1-2 se conds atypical for ACS. Has 1 cardiac risk factor patient age is 46 with a negative troponin. Unlikely ACS. Will have patient follow-up on an outpatient basis. Unlikely this is secondary to PE as patient is on Xarelto. Chest x-ray showed no pneumonia no pneumothorax. Patient's case discussed with him a joint decision was made to have patient follow-up on an outpatient basis with Cardiology. He is in stable condition with discharge Medical Records Data Attestation: I reviewed the patient's medical records. Lab Data Attestation: I reviewed the patient's lab results. Result diagrams: 11/24/21 16:03 11/24/21 16:03 Labs: Lab Results 11/24/21 11/24/21 11/24/21 Range/Units 16:03 16:03 16:03 WBC 6.8 (4.8-10.8) X10*3/uL RBC 4.09 L (4.60-5.80) X10*6/uL Hgb 12.0 L (14.0-18.0) g/dl Hct 35.8 L (42.0-52.0) % MCV 87.5 (80.0-98.0) fL MCH 29.3 (27.0-33.0) pg MCHC 33.5 (31.0-36.0) g/dl RDW 12.7 (11.0-16.0) % Plt Count 187 (160-400) X10*3/uL MPV 9.9 (9.4-12.4) fL Immature Gran % (Auto) 0.4 (0.0-0.4) % Neut % (Auto) 59.6 (45-73) % Lymph % (Auto) 29.2 (20-40) % [place] % (Auto) 8.6 (2-11) % Eos % (Auto) 1.6 (0-4) % Baso % (Auto) 0.6 (0-2) % Lymph # (Auto) 2.0 (1.2-4.9) X10*3/uL [place] # (Auto) 0.6 (0.1-1.2) X10*3/uL Eos # (Auto) 0.1 (0.0-0.4) X10*3/uL Baso # (Auto) 0.0 (0.0-0.2) X10*3/uL Abs Immat Gran (auto) 0.03 (0.00-0.03) X10*3/uL Absolute Neuts (auto) 4.0 (2.0-8.3) x10*3/uL Absolute Nucleated RBC 0.000 (0.0-0.012) X10*3/uL Nucleated RBC % (auto) 0.0 (0.0-0.2) /100WBC Sodium 141 (135-145) mmol/L Potassium 3.9 (3.3-5.1) mmol/L Chloride 102 (96-108) mmol/L Carbon Dioxide 28 (22-29) mmol/L Anion Gap 15 (12-20) BUN 19 H (9-16) mg/dL Creatinine 1.27 (0.5-1.4) mg/dL Estim Creat Clear Calc 89.7 Estimated GFR > 60 Random Glucose 131 H (60-115) mg/dL Calcium 9.3 D (8.4-10.2) mg/dL Troponin I High Sens < 3.5 (<3.5-35.0) ng/L Discharge Plan Discharge Clinical Impression: Chest pain Patient Disposition: Home, Self-Care Instructions: Chest Pain (DC) Additional Instructions: Worsening condition return to the emergency department. Close follow-up advised. Small risk of cardiac disease still exists. Prescriptions: No Action omeprazole magnesium [Prilosec OTC] 20 mg tablet,delayed release (DR/EC) 20 mg PO DAILY Qty: 14 0RF famotidine [Pepcid] 20 mg tablet 20 mg PO DAILY Qty: 30 0RF cyclobenzaprine 10 mg tablet 10 mg PO TID PRN (Reason: muscle spasm) Qty: 14 0RF lidocaine 4 % adhesive patch,medicated 1 patch topical DAILY PRN (Reason: pain) Qty: 10 0RF Rx Instructions: may leave on for up to 12 hrs tramadol 50 mg tablet 50 mg PO Q6H PRN (Reason: pain) Qty: 20 0RF Referrals: Be Hood MD [Physician] - 11/26/21
== END 2021-11-24 22:49 | disposition home or self-care (01) ==
PROVIDERS: Emergency Provider Emergency Medicine Emergency Medical Services; PCP Internal Medicine
DX: R07.9 Chest pain, unspecified (principal); I10 Essential (primary) hypertension; F19.10 Other psychoactive substance abuse, uncomplicated; Z86.718 Personal history of other venous thrombosis and embolism; Z86.711 Personal history of pulmonary embolism; Z79.01 Long term (current) use of anticoagulants; Z87.891 Personal history of nicotine dependence; Z79.899 Other long term (current) drug therapy
CPT/HCPCS: 36415; 71045; 80048; 84484; 85025; 93005; 99283; 99285

== ENCOUNTER 2022-09-15 09:13 | Emergency (ER) | payer OTHER, SELFPAY ==
[2022-09-15 09:27] VITALS: BP 115/73; PULSE 95; RESP 20; TEMP 36.2; O2SAT 98; BMI 43.3
--- NOTE | 2022-09-15 09:38 | ED.GENADULT ---
HPI - General Adult General Chief complaint: Skin/Abscess/Foreign Body Stated complaint: Abscess Time Seen by Provider: 09/15/22 09:34 Source: patient Mode of arrival: ambulatory Limitations: no limitations History of Present Illness HPI narrative: 47 y/o M with past medical history of hypertension and deep vein thrombosis presents with a painful lump to the groin. Patient reports that he started feeling pain underneath his scrotum 3 days ago and felt a small lump there. His pain has increased and he states that the bump has gotten larger since then. He states that the pain does not radiate anywhere and that it only hurts when he sits down. He has no penile or scrotal pain. He has never had this happen before. He denies fevers, chills, chest pain, SOB. 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 Patient does also have a history of hypertension. Related Data Previous Rx's Medication Instructions Recorded omeprazole magnesium 20 mg 20 mg PO DAILY #14 tabs 05/10/20 tablet,delayed release (Prilosec OTC) tramadol 50 mg tablet 50 mg PO Q6H PRN pain #20 tabs 01/06/21 famotidine 20 mg tablet (Pepcid) 20 mg PO DAILY #30 tabs 06/19/21 cyclobenzaprine 10 mg tablet 10 mg PO TID PRN muscle spasm #14 08/06/21 tabs lidocaine 4 % topical patch 1 patch topical DAILY PRN pain #10 08/06/21 ea cephalexin 500 mg capsule 500 mg PO QID 7 days #28 caps 09/15/22 doxycycline hyclate 100 mg capsule 100 mg PO BID #14 caps 09/15/22 Allergies Allergy/AdvReac Type Severity Reaction Status Date / Time Penicillins [PENICILLINS] Allergy Unknown Rash Unverified 01/27/21 00:50 Review of Systems Review of Systems: General: No fever, no chills ENT: No sore throat, no ear pain Cardiovascular: No chest pain, no peripheral edema, no shortness of breath Respiratory: No dyspnea, no sputum production, no cough Muscle skeletal: No malaise, no back pain, no neck pain, no extremity pain GI: No abdominal pain, no nausea vomiting, no diarrhea Psychiatric: No depression, no suicidal ideation, no homicidal ideation Skin: Below scrotum and area of latter-day/abscess draining Immunology: No immunocompromised Hematology: No bleeding, no bruising PMFSH Past Medical History Attestation statement: The following information was validated with the patient. Medical History Chronic anticoagulation GERD (gastroesophageal reflux disease) History of blood clots HTN (hypertension) Kidney stones Pulmonary embolism Substance abuse Social History Social History Alcohol intake: former Patient Tobacco Use Status: Former Tobacco user Substance Use Type: Former Substance User and Heroin Advance Directives: No Advance Directives Information Provided: Yes Physical Exam ED Vital Signs: Vital Signs - 24 hr 09/15/22 09:27 Temperature 97.1 F Pulse Rate 95 Respiratory Rate 20 Blood Pressure 115/73 Pulse Oximetry 98 Oxygen Delivery Method Nasal Cannula BMI result Body Mass Index 43.3 General appearance: Awake, alert, cooperative, in no acute distress Skin: below patient's scrotum a area of slight fluctuance draining abscess noted in the perineum does not seem to communicate up to the scrotum or to the perirectal area. Positive tenderness. Eyes: PERRL, EOMI, no icterus ENT: Oropharynx normal, uvula midline Neck: Soft supple full range of motion Pulmonary: Breath sounds clear to auscultation bilaterally, no accessory muscle use Cardiovascular: Regular rate and rhythm, no murmurs and rubs : No erythema induration noted in the scrotum with scrotal edema noted. Obvious small fluctuant abscess in the perineum that does not communicate with the scrotum and or perirectal area. Abdomen: Soft nontender, no rebound or guarding, positive bowel sounds Extremities: No deformity, nontender, no peripheral edema noted Neuro: Alert oriented x3, no focal deficit Psych: Normal affect Course Course Course Narrative: Perirectal abscess Perineum abscess Scrotal abscess Jake's gangrene less likely. Patient's vital signs are stable patient is afebrile no history of diabetes point of care glucose 127 here. Patient has a small draining abscess below the scrotum. Case discussed with Dr. Sanderson will plan tetanus ties into needle aspiration at this time as patient is on Xarelto daily. Patient seen and examined with attending present procedure note perineum abscess 1% lidocaine used needle aspiration positive purulent discharge possible purulent discharge after needle aspiration small amount of bleeding noted will observe patient plan to place patient on double coverage of Keflex and doxycycline. 11:00 area re-evaluated no active bleeding at this time. Patient given instructions on strict return precautions such as fever increased pain or swelling. Patient also instructed to take antibiotics as directed and warm soaks 3 to 4 times a day. Medications Administered Discontinued Medications Generic Name Dose Route Start Last Admin Trade Name Freq PRN Reason Stop Dose Admin Lidocaine HCl 10 ml 09/15/22 09:52 09/15/22 10:10 Lidocaine Hcl 1 % 20 Ml Vial INFILTRATI 09/15/22 09:53 10 ml ONCE ONE Administration Medical Decision Making Medical Decision Making MDM Narrative: 47 y/o M with PMHx of HTN and DVT presents with painful lump to the groin. Patient describes lump as hot and painful only when he applies pressure to it. Lump is acute in nature, erythematous and inflammed, most likely an abscess. Lab Data Labs: Lab Results 09/15/22 Range/Units 09:54 POC Glucose 127 H (60-115) mg/dL Discharge Plan Discharge Clinical Impression: Abscess Patient Disposition: Home, Self-Care Instructions: Abscess (ED), Abscess Incision and Drainage (DC) Additional Instructions: You had an abscess in the perineum below the scrotum that was drained with needle aspiration today. Positive pustulant discharge was obtained. Return if increased fever redness pain or swelling Antibiotics as directed avoid sun exposure while on doxycycline. Call PCP for follow-up Prescriptions: New doxycycline hyclate 100 mg capsule 100 mg PO BID Qty: 14 0RF cephalexin 500 mg capsule 500 mg PO QID 7 Days Qty: 28 0RF No Action omeprazole magnesium [Prilosec OTC] 20 mg tablet,delayed release (DR/EC) 20 mg PO DAILY Qty: 14 0RF famotidine [Pepcid] 20 mg tablet 20 mg PO DAILY Qty: 30 0RF cyclobenzaprine 10 mg tablet 10 mg PO TID PRN (Reason: muscle spasm) Qty: 14 0RF lidocaine 4 % adhesive patch,medicated 1 patch topical DAILY PRN (Reason: pain) Qty: 10 0RF Rx Instructions: may leave on for up to 12 hrs tramadol 50 mg tablet 50 mg PO Q6H PRN (Reason: pain) Qty: 20 0RF
[2022-09-15 09:58] LABS: Glucose, Whole Blood 127 mg/dL (60-115)
[2022-09-15] MEDS: Lidocaine HCl 1 % 20 ML VIAL 10 ML INFILTRATI (10:10)
== END 2022-09-15 11:29 | disposition home or self-care (01) ==
PROVIDERS: Emergency Provider Emergency Medicine; PCP Internal Medicine
DX: L02.215 Cutaneous abscess of perineum (principal); I10 Essential (primary) hypertension; Z87.891 Personal history of nicotine dependence; Z86.718 Personal history of other venous thrombosis and embolism; Z86.711 Personal history of pulmonary embolism; Z79.01 Long term (current) use of anticoagulants
CPT/HCPCS: 10160; 82947; 99282; 99284

== ENCOUNTER 2023-02-27 13:05 | Emergency (ER) | payer OTHER, SELFPAY ==
--- NOTE | ~2023-02-27 | XR_ITS ---
EXAMINATION: XR CHEST CLINICAL INFORMATION: Shortness of breath COMPARISON: November 24, 2021 TECHNIQUE: 2 views of the chest were obtained. FINDINGS: No significant abnormality is noted involving the heart, lungs, mediastinum, bony thorax or soft tissues. XR/XR chest 2V IMPRESSION: No acute disease.
[2023-02-27 14:51] VITALS: BP 125/71; PULSE 60; RESP 18; TEMP 36.8; O2SAT 97; BMI 40.6
--- NOTE | 2023-02-27 14:51 | ED.GENADULT ---
HPI - General Adult General Chief complaint: Upper Respiratory Symptoms Stated complaint: covid symptoms Time Seen by Provider: 02/27/23 16:15 Source: patient Mode of arrival: ambulatory Limitations: no limitations History of Present Illness HPI narrative: 47 yo male here with complaints of body aches, fatigue x 1 week. Did home covid test and was faintly positive. Wanted confirmation. no cough, congestion, chest pain, shortness of breath, fevers, chills, headache, neck pain or neck stiffness, skin rash. Related Data Previous Rx's Medication Instructions Recorded omeprazole magnesium 20 mg 20 mg PO DAILY #14 tabs 05/10/20 tablet,delayed release (Prilosec OTC) tramadol 50 mg tablet 50 mg PO Q6H PRN pain #20 tabs 01/06/21 famotidine 20 mg tablet (Pepcid) 20 mg PO DAILY #30 tabs 06/19/21 cyclobenzaprine 10 mg tablet 10 mg PO TID PRN muscle spasm #14 08/06/21 tabs lidocaine 4 % topical patch 1 patch topical DAILY PRN pain #10 08/06/21 ea cephalexin 500 mg capsule 500 mg PO QID 7 days #28 caps 09/15/22 doxycycline hyclate 100 mg capsule 100 mg PO BID #14 caps 09/15/22 Allergies Allergy/AdvReac Type Severity Reaction Status Date / Time Penicillins [PENICILLINS] Allergy Unknown Rash Verified 02/27/23 14:51 Review of Systems Review of Systems: Yes all other systems are reviewed and are negative Constitutional: Constitutional: Reports no additional constitutional complaints, Reports body ache(s), Denies chills, Reports fatigue, Denies fever(s), Denies headache(s) and Denies weakness Eyes: Eyes: Reports no additional eye complaints and Denies change in vision ENT: Reports system reviewed and no additional complaints, except as documented, Denies dizziness, Denies headache(s), Denies nasal congestion, Denies nasal discharge and Denies neck pain Cardiovascular: Cardiovascular: Reports no additional cardiovascular complaints, Denies chest pain, Denies leg edema and Denies dyspnea Respiratory: Respiratory: Reports no additional respiratory complaints, Denies cough and Denies dyspnea Gastrointestinal: Gastrointestinal: Reports no additional gastrointestinal complaints, Denies abdominal pain, Denies diarrhea, Denies nausea and Denies vomiting Genitourinary: Genitourinary: Denies urinary incontinence Musculoskeletal: Musculoskeletal: Reports no additional musculoskeletal complaints, Denies back pain, Denies arthralgias, Denies joint swelling, Denies neck pain, Denies numbness and Denies tingling Integumentary/Breasts: Skin/Breast: Reports system reviewed and no additional complaints, except as docu and Denies rash Neurologic: Reports system reviewed and no additional complaints, except as documented, Denies Abnormal speech present, Denies dizziness, Denies headache(s), Denies numbness, Denies tingling and Denies weakness Endocrine: Endocrine: Reports fatigue [facility] Past Medical History Attestation statement: The following information was validated with the patient. Source: old records reviewed and nursing notes reviewed Onset Date is defined in the Problem List Problems that require an onset date and time if occurred within 24 hrs of arrival to the ED Aortic Dissection and Rupture; Neurologic impairment; Cardiopulmonary Arrest; Endotracheal Intubation; Insertion or Replacement of Mechanical Circulatory Assist Device Medical History GERD (gastroesophageal reflux disease) Chronic anticoagulation Pulmonary embolism Substance abuse HTN (hypertension) Kidney stones History of blood clots Social History Social History Alcohol intake: former Patient Tobacco Use Status: Former Tobacco user Substance Use Type: Former Substance User and Heroin Advance Directives: No Advance Directives Information Provided: No Physical Exam ED Vital Signs: Vital Signs - 24 hr 02/27/23 14:51 Temperature 98.3 F Pulse Rate 60 Respiratory Rate 18 Blood Pressure 125/71 Pulse Oximetry 97 Oxygen Delivery Method Room Air BMI result Body Mass Index 40.6 Const General: cooperative, healthy appearing, comfortable and no acute distress Orientation/consciousness: patient oriented x3 Limitations: no limitations HENMT Head: Yes normal to inspection Ears: hearing grossly normal bilaterally and TM's normal bilaterally General nose exam: Normal external nose present Face and sinus: Yes normal facial exam Mouth: Normal oral and palatal mucosa present Throat: Yes posterior oropharynx normal, Yes tonsils normal and Yes uvula midline Eyes General: appearance normal, both eyes and all related structures Pupils: Equal, round and reactive pupils present Neck Neck: Yes normal visual inspection, Yes full ROM, Yes no lymphadenopathy and Yes no meningeal signs Chest Chest palpation & inspection: normal inspection of the chest Resp Effort & Inspection: normal respiratory effort Auscultation: clear to auscultation bilaterally Cardio Rate: regular rate Rhythm: regular rhythm Peripheral pulses: Peripheral pulses 2+ throughout GI Inspection: Yes normal to inspection Palpation (GI): Soft to palpation and nontender Auscultation: normal bowel sounds Back/Spine/Pelvis Thoracic/Lumbar Spine: thoracic and lumbar spine normal to inspection Skin General skin exam: no rashes or lesions noted Neuro General: patient oriented x3, no meningeal signs, no focal motor deficits and normal sensation to monofilament Cranial nerves: Yes Equal, round and reactive pupils present Cognition (Neuro): normal cognition Speech: No Abnormal speech present Gait exam (Neuro): Normal gait present Motor exam (neuro): 5/5 motor strength present throughout Extrem General: Yes normal to inspection Course Course Course Narrative: This is an RME: Additional HPI, ROS, PE not included below will be deferred to primary provider. This is a [id number], with a hx of DVT on xarelto and HTN, presenting to the ER with complaints of congestion, back pain, and weakness x 1 week. family is here c/o Plan: COVID & Flu swabs Medical Decision Making Medical Decision Making MDM Narrative: 47 yo male here with complaints of body aches, fatigue x 1 week. Did home covid test and was faintly positive. Wanted confirmation. no cough, congestion, chest pain, shortness of breath, fevers, chills, headache, neck pain or neck stiffness, skin rash. Exam is benign. VSS Will send viral testing Differential Diagnosis Differential Diagnoses: The differential diagnosis associated with the presentation includes viral syndrome, influenxa, covid low concern for PE with PERC 0, low suspician for PNA Admission/Observation Consideration of admission/observation: Escalation of care including admission/observation considered COVID + with no hypoxia or tachypnea requiring supplemental oxygen and or admission Lab Data MDM Lab Attestation statement: I reviewed the patient's lab results. COVID + Labs: Lab Results 02/27/23 Range/Units 16:07 COVID-19 (JESSIE) Positive A (Negative) COVID-19 Clin Com See Note Influenza Type A (VICKEY) Negative (Negative) Influenza Type B (VICKEY) Negative (Negative) Influenza A & B Note See Note Independent Interpretation I performed an independent interpretation of an: Plain X-Ray Interpretation: I independently reviewed the x-ray and agree with the rad report Radiology Impression Discussion of test interpretation with radiology: I have reviewed the radiologist's reading. Radiologist Impression: [address] [address] XRay Report Signed Patient: Junaid Patel MR#: [id number] : 1975 Acct:[id number] Age/Sex: 47 / M ADM Date: 02/27/23 Loc: .ED Attending Dr: Ordering Physician: Vidhi Solo Date of Service: 02/27/23 Procedure(s): XR chest 2V Accession Number(s): [id number] cc: Vidhi Solo; [facility] CHU EXAMINATION: XR CHEST CLINICAL INFORMATION: Shortness of breath COMPARISON: November 24, 2021 TECHNIQUE: 2 views of the chest were obtained. FINDINGS: No significant abnormality is noted involving the heart, lungs, mediastinum, bony thorax or soft tissues. XR/XR chest 2V IMPRESSION: No acute disease. Independent Historian Clinical information obtained from an independent historian. History obtained from or confirmed by: Other (daughter) Prescription Management I considered prescription management with: Antiviral Symptoms > 1 week-does not qualify for antivirals Discharge Plan Discharge Clinical Impression: COVID-19 Patient Disposition: Home, Self-Care Instructions: COVID-19 (Coronavirus Disease 2019) (ED) Additional Instructions: COVID test is positive. Chest x-ray shows no signs of infection. Increase fluids, rest Take Motrin or Tylenol for any pain or fever as needed. Return for any chest pain or shortness of breath Prescriptions: No Action omeprazole magnesium [Prilosec OTC] 20 mg tablet,delayed release (DR/EC) 20 mg PO DAILY Qty: 14 0RF famotidine [Pepcid] 20 mg tablet 20 mg PO DAILY Qty: 30 0RF cyclobenzaprine 10 mg tablet 10 mg PO TID PRN (Reason: muscle spasm) Qty: 14 0RF lidocaine 4 % adhesive patch,medicated 1 patch topical DAILY PRN (Reason: pain) Qty: 10 0RF Rx Instructions: may leave on for up to 12 hrs tramadol 50 mg tablet 50 mg PO Q6H PRN (Reason: pain) Qty: 20 0RF doxycycline hyclate 100 mg capsule 100 mg PO BID Qty: 14 0RF cephalexin 500 mg capsule 500 mg PO QID 7 Days Qty: 28 0RF Referrals: Dian Chu [Primary Care Provider] - 1 week Stand Alone Forms: Work/School Release
[2023-02-27 16:25] LABS: COVID-19 Test Positive (Negative); IDNOW Serial# 152EDE1D
[2023-02-27 16:37] LABS: IDNOW Serial# 08D9AD1C; Influenza A Negative (Negative); Influenza B2 Negative (Negative)
== END 2023-02-27 16:56 | disposition home or self-care (01) ==
PROVIDERS: Physician Assistant Medical; Emergency Provider Emergency Medicine; PCP Internal Medicine
DX: U07.1 COVID-19 (principal); I10 Essential (primary) hypertension
CPT/HCPCS: 71046; 87502; 87635; 99282; 99283

== ENCOUNTER 2023-06-14 06:31 | Emergency (ER) | payer OTHER, SELFPAY ==
--- NOTE | ~2023-06-14 | CT_ITS ---
EXAMINATION: CT ABDOMEN AND PELVIS WITHOUT CONTRAST CLINICAL INFORMATION: Intractable diarrhea abdominal pressure COMPARISON: CT abdomen from 06/19/2021 TECHNIQUE: Multidetector volumetric imaging was performed from the superior aspect of the liver through the pubic symphysis. Sagittal and coronal reformatted images were obtained on the technologist's workstation. This CT examination was performed using dose optimization techniques as appropriate, variously including the following: *Automated exposure control *Adjustment of mA and/or kV according to patient size (this includes techniques or standardized protocols for targeted exams where dose is matched to indication/reason for exam; i.e. extremities or head) *Use of iterative reconstruction technique DLP: 792 mGy-cm FINDINGS: LUNG BASES: Bibasilar atelectasis. No pneumothorax. No large pleural effusion. Slight elevation the right hemidiaphragm. LIVER, GALLBLADDER, AND BILIARY TREE: Liver is mildly enlarged measuring 19.2 cm. Decreased hepatic attenuation suggesting hepatic steatosis with regions of focal fatty sparing adjacent to gallbladder fossa. No focal hepatic lesion or biliary ductal dilatation is present. The gallbladder is unremarkable with no evidence of radiopaque gallstones, gallbladder wall thickening, or obvious pericholecystic inflammatory changes. PANCREAS: Unremarkable. SPLEEN: Unremarkable. ADRENAL GLANDS: Unremarkable. KIDNEYS AND URETERS: Right-sided nephrolithiasis measuring 2 mm in the upper pole without hydronephrosis. Multiple left renal calculi the largest measuring up to 2 mm without hydronephrosis. BLADDER: Unremarkable. GASTROINTESTINAL TRACT: Small hiatal hernia. The small and large bowel are unremarkable. The appendix is unremarkable. ABDOMINAL WALL: Small fat filled umbilical hernia. Bilateral fat filled left inguinal hernias, left greater than right. LYMPH NODES: Few mildly prominent though not enlarged mesenteric lymph nodes are noted measuring up to 8 mm in short axis. VASCULAR: Abdominal aorta is nonaneurysmal. PELVIC VISCERA: Unremarkable. OSSEOUS STRUCTURES: Multilevel degenerative changes greatest at L4-L5 and L5-S1. CT/CT abdomen pelvis wo IV con IMPRESSION: 1. No acute process of the abdomen or pelvis identified. 2. Decreased hepatic attenuation suggesting hepatic steatosis with regions of focal fatty sparing adjacent to gallbladder fossa. 3. Bilateral nephrolithiasis without hydronephrosis. 4. Small hiatal hernia. 5. Small fat filled umbilical hernia. Bilateral fat filled left inguinal hernias, left greater than right. 6. Few mildly prominent though not enlarged mesenteric lymph nodes are noted measuring up to 8 mm in short axis.
[2023-06-14 06:34] VITALS: BP 138/82; PULSE 75; RESP 18; TEMP 36.7; O2SAT 98; BMI 41.3
[2023-06-14 06:45] VITALS: BP 138/82; PULSE 78; RESP 18; TEMP 36.7; O2SAT 98
[2023-06-14 06:51] LABS: MANUAL DIFF FLAG NO
[2023-06-14 06:52] LABS: Basophils Absolute Auto 0.1 X10*3/uL (0.0-0.2); Basophils Percent Auto 0.6 % (0-2); Eosinophils Absolute Auto 0.1 X10*3/uL (0.0-0.4); Eosinophils Percent Auto 1.2 % (0-4); Hemoglobin 14.2 g/dl (14.0-18.0); Imm Gran Abs Auto 0.09 X10*3/uL (0.00-0.03); Imm Gran Pct Auto 0.9 % (0.0-0.4); Lymphocytes Absolute Auto 1.8 X10*3/uL (1.2-4.9); Lymphocytes Percent Auto 17.4 % (20-40); Mean Corpuscular Hemoglobin 29.5 pg (27.0-33.0); Mean Corpuscular Volume 89.4 fL (80.0-98.0); Mean Platelet Volume 9.5 fL (9.4-12.4); Monocytes Absolute Auto 0.8 X10*3/uL (0.1-1.2); Monocytes Percent Auto 7.3 % (2-11); Neutrophils Absolute Auto 7.6 x10*3/uL (2.0-8.3); Neutrophils Percent Auto 72.6 % (45-73); Platelet Count 246 X10*3/uL (160-400); Red Blood Count 4.81 X10*6/uL (4.60-5.80); Red Cell Distribution Width 13.6 % (11.0-16.0); White Blood Count 10.4 X10*3/uL (4.8-10.8)
[2023-06-14 06:59] LABS: Appearance Urine Clear; Color Urine Yellow; Glucose Urine UA Negative (Negative); Leukocyte Esterase Urine Negative (Negative); Nitrite Urine Negative (Negative); PH 5.5 (5.0-9.0); Specific Gravity - Urine 1.025 (1.005-1.025); Urine Blood Negative (Negative); Urine Ketones Negative (Negative); Urine Protein Negative (Neg-Trace)
[2023-06-14 07:10] LABS: Alanine Aminotransferase 39 U/L (0-40); Albumin Level 4.6 g/dL (3.5-5.0); Alkaline Phosphatase 81 U/L (39-117); Anion Gap 12 (12-20); Aspartate Amino Transferase 29 U/L (5-37); Bilirubin Direct 0.1 mg/dL (0.0-0.5); Bilirubin Total 0.3 mg/dL (0.0-1.0); Blood Urea Nitrogen 24 mg/dL (9-16); Calcium 10.1 mg/dL (8.4-10.2); Carbon Dioxide 25 mmol/L (22-29); Chloride 102 mmol/L (96-108); Creatinine Clr Calc Pharmacy 118.8; Estimated Glomerular Filt Rate > 60; Glucose Random 103 mg/dL (60-115); Lipase 48 U/L (8-78); Magnesium 2.2 mg/dL (1.6-2.6); Potassium 4.3 mmol/L (3.3-5.1); Sodium 135 mmol/L (135-145); Total Protein 9.3 g/dL (6.5-8.0)
--- NOTE | 2023-06-14 07:28 | ED.NAVMDI ---
HPI - Nausea/Vomiting/Diarrhea General Chief complaint: Nausea/Vomiting/Diarrhea Stated complaint: vomiting, diar. Time Seen by Provider: 06/14/23 06:41 Source: patient, RN notes reviewed and old records reviewed Mode of arrival: ambulatory Limitations: no limitations History of Present Illness HPI Narrative: 47-year-old male with pmhx significant for GERD, renal stones, chronic substance abuse, HTN, and PE on eliquis presents to the ED today for evaluation of diarrhea x2 days. He reports diffuse abdominal pressure that began on Wednesday (2 days ago). He then began to have multiple episodes of watery loose stool beginning yesterday. Last bowel movement was this morning prior to arrival in ED. Endorses 1 episode of vomiting this morning. Admits that he ate chicken gizzards prior to onset of symptoms. No one else around him has similar symptoms. No specific exacerbating or relieving factors. He tried taking Pepto-Bismol last night without relief. Denies recent travel outside the [place] Denies known sick contacts. Denies EtOH consumption. Denies illicit substance use. Denies fever, chills, cough, chest pain, shortness of breath, hematemesis, hematochezia, melena, flank pain, dysuria, hematuria. Related Data Previous Rx's ?Medication ?Instructions ?Recorded omeprazole magnesium 20 mg 20 mg PO DAILY #14 tabs 05/10/20 tablet,delayed release (Prilosec OTC) tramadol 50 mg tablet 50 mg PO Q6H PRN pain #20 tabs 01/06/21 famotidine 20 mg tablet (Pepcid) 20 mg PO DAILY #30 tabs 06/19/21 cyclobenzaprine 10 mg tablet 10 mg PO TID PRN muscle spasm #14 08/06/21 tabs lidocaine 4 % topical patch 1 patch topical DAILY PRN pain #10 08/06/21 ea cephalexin 500 mg capsule 500 mg PO QID 7 days #28 caps 09/15/22 doxycycline hyclate 100 mg capsule 100 mg PO BID #14 caps 09/15/22 loperamide 2 mg capsule (Imodium 2 mg PO Q6H PRN loose stool #14 06/14/23 A-D) caps ondansetron 4 mg disintegrating 4 mg PO DAILY PRN nausea and 06/14/23 tablet vomiting 5 days #14 tabs Allergies Allergy/AdvReac Type Severity Reaction Status Date / Time Penicillins [PENICILLINS] Allergy Unknown Rash Verified 06/14/23 06:36 Review of Systems Review of Systems: Constitutional: No fever, chills, fatigue, night sweats, weight changes ENT/Mouth: No ear pain, hearing loss, nasal congestion, sinus pain, rhinorrhea, sore throat Eyes: No eye pain, swelling, redness, vision changes, discharge Cardio: No chest pain, palpitations, CRISTOBAL, orthopnea, peripheral edema Pulm: No SOB, cough, sputum, wheezing, dyspnea, hemoptysis GI: No hematemesis, diarrhea, constipation, hematochezia, melena, + watery diarrhea, + vomiting, + abdominal pressure : No irregular bleeding, dysuria, frequency, urgency, hesitancy, hematuria, flank pain, urinary flow changes, urinary incontinence or retention MSK: No back pain, neck pain, joint pain, myalgias Skin: No lesions, rashes Neuro: No weakness, numbness, paresthesias, LOC, dizziness, headache Psych: No anxiety/panic, depression, SI/HI, AH/VH All other systems reviewed and are negative. [facility] Past Medical History Attestation statement: The following information was validated with the patient. Source: old records reviewed and nursing notes reviewed Medical History GERD (gastroesophageal reflux disease) Chronic anticoagulation Pulmonary embolism Substance abuse HTN (hypertension) Kidney stones History of blood clots Social History Social History Alcohol intake: former Patient Tobacco Use Status: Former Tobacco user Smoked in Last 30 Days: No Substance Use Type: Former Substance User and Heroin Advance Directives: No Advance Directives Information Provided: No Do you have a plan to hurt others: No Plan Physical Exam Vital Signs: Vital Signs: Last Vital Signs Temp 97.8 F 06/14/23 10:01 Pulse 53 06/14/23 10:01 Resp 14 06/14/23 10:01 BP 109/64 06/14/23 10:01 Pulse Ox 98 06/14/23 10:01 O2 Del Method Room Air 06/14/23 10:01 BMI result Body Mass Index 41.3 Vital signs stable, afebrile. Const: General: cooperative, healthy appearing, comfortable, no acute distress, alert and awake Orientation/consciousness: patient oriented x3 Limitations: no limitations HEENT: Head: Yes normal to inspection Eyes: General: appearance normal, both eyes and all related structures Conjunctivae: conjunctivae normal Sclerae: sclerae normal Pupils: Equal, round and reactive pupils present Neck: Neck: Yes normal visual inspection, Yes full ROM, Yes no lymphadenopathy and Yes no meningeal signs Resp: Effort & Inspection: normal respiratory effort and able to speak in complete sentences Auscultation: clear to auscultation bilaterally Cardio: Rate: regular rate Rhythm: regular rhythm Peripheral pulses: radial pulses present GI: Other: + obese abdomen, slightly tender to palpation of the lower quadrants, no rebound tenderness or guarding, normoactive bowel sounds x4, no hepatosplenomegaly Inspection: Yes normal to inspection : General: Yes no CVA tenderness Back/Spine/Pelvis: Back: no CVA tenderness Skin: General skin exam: no rashes or lesions noted Neuro: General: patient oriented x3, gait normal, moves all extremities and no meningeal signs Cranial nerves: Yes Equal, round and reactive pupils present Extrem: General: Yes normal to inspection and Yes full ROM Course Course Course Narrative: 0737-- CBC without leukocytosis or left shift. No anemia. H&H stable. Chemistry without acute electrolyte abnormality requiring intervention. BUN elevated to 24 however creatinine is within normal limits at 0.92. Normal liver function. Lipase WNL at 48 > pancreatitis unlikely. Urine does not demonstrate infection. He has tested negative for COVID, flu, RSV. > stool sample and CT scan pending 942-- CT of abdomen and pelvis without acute pathology. There are findings suggestive of hepatic steatosis which have been evident on previous abdominal scans. There is bilateral nephrolithiasis without hydronephrosis, largest measuring 2 mm. This is likely not the etiology of patient's symptoms. Normal appendix. Small hiatal hernia and fat filled umbilical and inguinal hernias. > patient likely with gastroenteritis and food poisoning secondary to consuming bad chicken. > on re-evaluation, patient reports symptom improvement with Zofran. discussed all imaging findings with patient. currently declining stool sample for GI panel at this time. tolerating PO intake. No further episodes of vomiting while in ED. educated on symptomatic treatment with zofran and imodium. will provide him with referral to general surgery for hernias. Patient has remained stable throughout ED visit today. Discussed worrisome signs and symptoms and when to return to the ED. All questions answered at this time. Patient is agreeable with disposition and stable for discharge. Medications Administered Discontinued Medications Generic Name Dose Route Start Last Admin Trade Name Maria Antonia PRN Reason Stop Dose Admin Sodium Chloride 1,000 mls @ 999 mls/hr 06/14/23 07:30 06/14/23 08:47 Ns IV 06/14/23 08:30 999 mls/hr .Q1H1M [place] Administration Ondansetron HCl 4 mg 06/14/23 07:22 06/14/23 08:47 Ondansetron Hcl 4 Mg/2 Ml Vial IVPUSH 06/14/23 07:23 4 mg ONCE ONE Administration Medical Decision Making Medical Decision Making [facility] [place] Narrative: 47-year-old male with pmhx significant for GERD, renal stones, chronic substance abuse, HTN, and PE on eliquis presents to the ED today for evaluation of diarrhea x2 days. Vital signs stable. Afebrile. Patient is nontoxic appearing and in NAD. He is lying comfortably on the exam bed. On exam, obese abdomen. Slightly tender to palpation of the lower abdomen. No rebound tenderness or guarding. Normoactive bowel sounds x4. No CVAT bilaterally. Differential diagnosis includes food poisoning, Clostridium perfringens, viral syndrome, gastroenteritis, enteritis, diverticulosis, diverticulitis. Low suspicion for bowel obstruction, ischemic bowel, appendicitis, cholecystitis, pancreatitis, renal colic, neprholithiasis, urinary tract infection. Plan for labs, UA, viral serology, IV fluids, antiemetic, CT abdomen/pelvis, re-evaluation. Differential Diagnosis Differential Diagnoses: The differential diagnosis associated with the presentation includes As above Admission/Observation Consideration of admission/observation: Escalation of care including admission/observation considered Lab Data [facility] [place] Lab Attestation statement: I reviewed the patient's lab results. As above 06/14/23 06:43 06/14/23 06:43 Labs: Lab Results 06/14/23 Range/Units 06:43 WBC 10.4 (4.8-10.8) X10*3/uL RBC 4.81 (4.60-5.80) X10*6/uL Hgb 14.2 (14.0-18.0) g/dl Hct 43.0 D (42.0-52.0) % MCV 89.4 (80.0-98.0) fL MCH 29.5 (27.0-33.0) pg MCHC 33.0 (31.0-36.0) g/dl RDW 13.6 (11.0-16.0) % Plt Count 246 D (160-400) X10*3/uL MPV 9.5 (9.4-12.4) fL Immature Gran % (Auto) 0.9 H (0.0-0.4) % Neut % (Auto) 72.6 (45-73) % Lymph % (Auto) 17.4 L (20-40) % Culberson % (Auto) 7.3 (2-11) % Eos % (Auto) 1.2 (0-4) % Baso % (Auto) 0.6 (0-2) % Lymph # (Auto) 1.8 (1.2-4.9) X10*3/uL [place]berson # (Auto) 0.8 (0.1-1.2) X10*3/uL Eos # (Auto) 0.1 (0.0-0.4) X10*3/uL Baso # (Auto) 0.1 (0.0-0.2) X10*3/uL Abs Immat Gran (auto) 0.09 H (0.00-0.03) X10*3/uL Absolute Neuts (auto) 7.6 (2.0-8.3) x10*3/uL Absolute Nucleated RBC 0.000 (0.0-0.012) X10*3/uL Nucleated RBC % (auto) 0.0 (0.0-0.2) /100WBC Sodium 135 (135-145) mmol/L Potassium 4.3 (3.3-5.1) mmol/L Chloride 102 (96-108) mmol/L Carbon Dioxide 25 (22-29) mmol/L Anion Gap 12 (12-20) BUN 24 H (9-16) mg/dL Creatinine 0.92 (0.5-1.4) mg/dL Estim Creat Clear Calc 118.8 Estimated GFR > 60 Random Glucose 103 (60-115) mg/dL Calcium 10.1 D (8.4-10.2) mg/dL Magnesium 2.2 (1.6-2.6) mg/dL Total Bilirubin 0.3 (0.0-1.0) mg/dL Direct Bilirubin 0.1 (0.0-0.5) mg/dL AST 29 (5-37) U/L ALT 39 (0-40) U/L Alkaline Phosphatase 81 (39-117) U/L Total Protein 9.3 H (6.5-8.0) g/dL Albumin 4.6 (3.5-5.0) g/dL Lipase 48 (8-78) U/L Urine Color Yellow Urine Appearance Clear Urine pH 5.5 (5.0-9.0) Ur Specific Hitchcock 1.025 (1.005-1.025) Urine Protein Negative (Neg-Trace) mg/dL Urine Glucose (UA) Negative (Negative) mg/dL Urine Ketones Negative (Negative) mg/dL Urine Blood Negative (Negative) Urine Nitrite Negative (Negative) Ur Leukocyte Esterase Negative (Negative) Influenza Type A (PCR) NEGATIVE (Negative) Influenza Type B (PCR) NEGATIVE (Negative) RSV RNA Qual (PCR) NEGATIVE (Negative) SARS-CoV-2 RNA (RT-PCR) NEGATIVE (Negative) Independent Interpretation I performed an independent interpretation of an: CT Scan Radiology Impression Discussion of test interpretation with radiology: I have reviewed the radiologist's reading. External Record Review External record reviewed: Inpatient record, Office record, Outpatient record, Prior outpatient labs, Prior outpatient radiology, Primary care record and Outside ED record Prescription Management I considered prescription management with: Pain Medication and Other (Zofran) Chronic Conditions Patient?s care impacted by: Hypertension Social Determinants Patient?s care significantly limited by Social Determinants of Health including: Other Social Determinant of Health Critical Care Time Critical Care Time Critical Care Time: No Discharge Plan Discharge Clinical Impression: Food poisoning, Gastroenteritis Patient Disposition: Home, Self-Care Instructions: Acute Diarrhea (ED), Food Poisoning (ED) Additional Instructions: Your lab workup today was reassuring.? Your urine test was negative for infection. The CT scan of your abdomen/pelvis was normal. Your symptoms are most consistent with food poisoning, likely from the bacteria Clostridium perfringens. The treatment for this is supportive care. Symptoms usually resolve on their own in 48-72 hours.? The recommendation is rest and lots of oral hydration.? Stick to a bland diet like soup and toast while you are not feeling well.? Zofran is an anti-nausea medication. This has been sent to your pharmacy for you to take as needed for nausea.? You can also try over the counter Pepto Bismol or Imodium (loperamide) as needed for upset stomach and diarrhea.? With imodium, take 4mg initially, then 2mg after each episode of loose stool. do not take for more than 48 hours. Follow up with your primary care provider as needed. If you develop new or worsening symptoms call 911 or come back to the ER for further evaluation. Prescriptions: New ondansetron 4 mg tablet,disintegrating 4 mg PO DAILY PRN (Reason: nausea and vomiting) 5 Days Qty: 14 0RF loperamide [Imodium A-D] 2 mg capsule 2 mg PO Q6H PRN (Reason: loose stool) Qty: 14 0RF Rx Instructions: 4 mg initially, followed by 2 mg after each loose stool; maximum: 16 mg/day. Limit use to =48 hours No Action omeprazole magnesium [Prilosec OTC] 20 mg tablet,delayed release (DR/EC) 20 mg PO DAILY Qty: 14 0RF famotidine [Pepcid] 20 mg tablet 20 mg PO DAILY Qty: 30 0RF cyclobenzaprine 10 mg tablet 10 mg PO TID PRN (Reason: muscle spasm) Qty: 14 0RF lidocaine 4 % adhesive patch,medicated 1 patch topical DAILY PRN (Reason: pain) Qty: 10 0RF Rx Instructions: may leave on for up to 12 hrs tramadol 50 mg tablet 50 mg PO Q6H PRN (Reason: pain) Qty: 20 0RF doxycycline hyclate 100 mg capsule 100 mg PO BID Qty: 14 0RF cephalexin 500 mg capsule 500 mg PO QID 7 Days Qty: 28 0RF Referrals: Dian Chu [Primary Care Provider] - Stand Alone Forms: Work/School Release Print Language: Libyan
[2023-06-14 07:29] LABS: Influenza A PCR NEGATIVE (Negative); Influenza B PCR NEGATIVE (Negative); Resp Syncy Virus RNA Qual PCR NEGATIVE (Negative); SARS COV2 PCR INHOUSE NEGATIVE (Negative)
[2023-06-14 08:29] VITALS: BP 134/78; PULSE 70; RESP 15; TEMP 36.4; O2SAT 96
[2023-06-14] MEDS: 0.9 % Sodium Chloride 1,000 ML 999 ML IV (08:47)
[2023-06-14] MEDS: ondansetron HCL 4 MG/2 ML VIAL IVPUSH (08:47)
[2023-06-14 10:01] VITALS: BP 109/64; PULSE 53; RESP 14; TEMP 36.6; O2SAT 98
[2023-06-14 10:34] VITALS: BP 109/64; PULSE 53; RESP 14; TEMP 36.6; O2SAT 98
== END 2023-06-14 10:35 | disposition home or self-care (01) ==
PROVIDERS: Emergency Medicine; Emergency Provider Emergency Medicine; PCP Internal Medicine
DX: R11.2 Nausea with vomiting, unspecified (principal); Z86.711 Personal history of pulmonary embolism; Z79.01 Long term (current) use of anticoagulants; Z79.899 Other long term (current) drug therapy
CPT/HCPCS: 0241U; 36415; 74176; 80048; 80076; 81003; 83690; 83735; 85025; 99284; J2405

== ENCOUNTER 2023-07-10 15:32 | Emergency (ER) | payer OTHER, SELFPAY ==
--- NOTE | ~2023-07-10 | XR_ITS ---
EXAMINATION: XR FOOT, LEFT CLINICAL INFORMATION: Puncture wound. Evaluate for foreign body COMPARISON: Tibia and fibula radiograph 06/07/2016 TECHNIQUE: AP, lateral, and oblique views of the left foot. FINDINGS: The bones and soft tissues are normal. No fracture. Alignment is anatomic. Joint spaces are maintained. Tiny radiodense object lateral the base of the fifth metatarsal on the oblique view. XR/XR foot LT min 3V IMPRESSION: Tiny radiodense object lateral the base of the fifth metatarsal on the oblique view. This could represent a foreign body. Recommend correlation with site of injury.
[2023-07-10 15:40] VITALS: BP 103/66; PULSE 78; RESP 18; TEMP 36.7; O2SAT 96; BMI 41.4
--- NOTE | 2023-07-10 15:40 | ED.WOUNDLAC ---
HPI - Wound/Laceration General Chief Complaint: Extremity Injury, Lower Stated Complaint: left foot laceration Time Seen by Provider: 07/11/23 01:43 Related Data Previous Rx's ?Medication ?Instructions ?Recorded omeprazole magnesium 20 mg 20 mg PO DAILY #14 tabs 05/10/20 tablet,delayed release (Prilosec OTC) tramadol 50 mg tablet 50 mg PO Q6H PRN pain #20 tabs 01/06/21 famotidine 20 mg tablet (Pepcid) 20 mg PO DAILY #30 tabs 06/19/21 cyclobenzaprine 10 mg tablet 10 mg PO TID PRN muscle spasm #14 08/06/21 tabs lidocaine 4 % topical patch 1 patch topical DAILY PRN pain #10 08/06/21 ea cephalexin 500 mg capsule 500 mg PO QID 7 days #28 caps 09/15/22 doxycycline hyclate 100 mg capsule 100 mg PO BID #14 caps 09/15/22 loperamide 2 mg capsule (Imodium 2 mg PO Q6H PRN loose stool #14 06/14/23 A-D) caps ondansetron 4 mg disintegrating 4 mg PO DAILY PRN nausea and 06/14/23 tablet vomiting 5 days #14 tabs clindamycin HCl 300 mg capsule 300 mg PO Q6H #40 caps 07/11/23 mupirocin 2 % topical ointment 1 appl topical BID #15 grams 07/11/23 Allergies Allergy/AdvReac Type Severity Reaction Status Date / Time Penicillins [PENICILLINS] Allergy Unknown Rash Verified 07/10/23 15:42 [facility] Past Medical History Medical History GERD (gastroesophageal reflux disease) Chronic anticoagulation Pulmonary embolism Substance abuse HTN (hypertension) Kidney stones History of blood clots Social History Social History Alcohol intake: former Patient Tobacco Use Status: Former Tobacco user Smoked in Last 30 Days: No Use of substances other than those prescribed or required for medical reasons: No Substance Use Type: Former Substance User and Heroin Advance Directives: No Advance Directives Information Provided: Yes Physical Exam Vital Signs: Vital Signs: Last Vital Signs Temp 98.0 F 07/11/23 02:22 Pulse 76 07/11/23 02:22 Resp 18 07/11/23 02:22 BP 118/73 07/11/23 02:22 Pulse Ox 97 07/11/23 02:22 O2 Del Method Room Air 07/11/23 02:22 BMI result Body Mass Index 41.4 Course Course Course Narrative: This is an RME: Additional HPI, ROS, PE not included below will be deferred to primary provider. RME assessment and note performed by: Vidhi Solo PA-C This is a [id number], with a hx of GERD, renal stones, chronic substance abuse, HTN, and PE on eliquis, who presents to the ER with a complaint of left foot laceration. Small puncture wound seen of the left foot, unsure last tetanus shot. Plan: tdap, xray Medications Administered Discontinued Medications Generic Name Dose Route Start Last Admin Trade Name Freq PRN Reason Stop Dose Admin Bacitracin 1 appl 07/11/23 01:51 07/11/23 02:06 Bacitracin Oint 0.9 Gm Packet TOPICAL 07/11/23 01:52 1 appl ONCE ONE Administration Protocol Clindamycin HCl 300 mg 07/11/23 01:46 07/11/23 02:11 Clindamycin Hcl 300 Mg Capsule PO 07/11/23 01:47 300 mg ONCE ONE Administration Diphtheria/Tetanus/Acell Pertussis 0.5 ml 07/10/23 15:42 07/11/23 01:32 Diphth,Pertus(Acell),Tet Adult 0.5 Ml Syringe IM 07/10/23 15:43 0.5 ml .ONCE ONE Administration Medical Decision Making Medical Decision Making [facility] Narrative: Puncture on the left foot sole foreign body tried to removed and flushed patient felt better bacitracin ointment applied will give him clindamycin Radiology Impression Discussion of test interpretation with radiology: I have reviewed the radiologist's reading. Radiologist Impression: XR foot LT min 3v IMPRESSION: Tiny radiodense object lateral the base of the fifth metatarsal on the oblique view. This could represent a foreign body. Recommend correlation with site of injury. Dictated By: Srinivas Wayne MD Discharge Plan Discharge Clinical Impression: Puncture wound of foot, left Patient Disposition: Home, Self-Care Instructions: Puncture Wound in the Foot (ED) Additional Instructions: Local care as advised Take antibiotic as prescribed Report to the ER if worsening of the pain/redness or swelling Prescriptions: New clindamycin HCl 300 mg capsule 300 mg PO Q6H Qty: 40 0RF mupirocin 2 % ointment 1 appl topical BID Qty: 15 0RF No Action omeprazole magnesium [Prilosec OTC] 20 mg tablet,delayed release (DR/EC) 20 mg PO DAILY Qty: 14 0RF famotidine [Pepcid] 20 mg tablet 20 mg PO DAILY Qty: 30 0RF cyclobenzaprine 10 mg tablet 10 mg PO TID PRN (Reason: muscle spasm) Qty: 14 0RF lidocaine 4 % adhesive patch,medicated 1 patch topical DAILY PRN (Reason: pain) Qty: 10 0RF Rx Instructions: may leave on for up to 12 hrs tramadol 50 mg tablet 50 mg PO Q6H PRN (Reason: pain) Qty: 20 0RF doxycycline hyclate 100 mg capsule 100 mg PO BID Qty: 14 0RF cephalexin 500 mg capsule 500 mg PO QID 7 Days Qty: 28 0RF ondansetron 4 mg tablet,disintegrating 4 mg PO DAILY PRN (Reason: nausea and vomiting) 5 Days Qty: 14 0RF loperamide [Imodium A-D] 2 mg capsule 2 mg PO Q6H PRN (Reason: loose stool) Qty: 14 0RF Rx Instructions: 4 mg initially, followed by 2 mg after each loose stool; maximum: 16 mg/day. Limit use to =48 hours Stand Alone Forms: Work/School Release Interventions: ED Discharge Assessment Last Done: 07/11/23 02:22 Discharge Date/Time: 07/11/23 02:23 Print Language: Mohawk
[2023-07-11] MEDS: Diphth,Pertus(ACell),Tet Adult 0.5 ML SYRINGE IM (01:32)
--- NOTE | 2023-07-11 01:47 | ED_ITS ---
HPI - Extremity Injury (Lower) General Chief Complaint: Extremity Injury, Lower Stated Complaint: left foot laceration Time Seen by Provider: 07/11/23 01:43 Source: patient Mode of arrival: ambulatory Limitations: no limitations History of Present Illness HPI Narrative: Patient apparently walking barefoot pushing the about in the water something punctured his L sole had some bleeding unknown last tetanus shot Related Data Previous Rx's ?Medication ?Instructions ?Recorded omeprazole magnesium 20 mg 20 mg PO DAILY #14 tabs 05/10/20 tablet,delayed release (Prilosec OTC) tramadol 50 mg tablet 50 mg PO Q6H PRN pain #20 tabs 01/06/21 famotidine 20 mg tablet (Pepcid) 20 mg PO DAILY #30 tabs 06/19/21 cyclobenzaprine 10 mg tablet 10 mg PO TID PRN muscle spasm #14 08/06/21 tabs lidocaine 4 % topical patch 1 patch topical DAILY PRN pain #10 08/06/21 ea cephalexin 500 mg capsule 500 mg PO QID 7 days #28 caps 09/15/22 doxycycline hyclate 100 mg capsule 100 mg PO BID #14 caps 09/15/22 loperamide 2 mg capsule (Imodium 2 mg PO Q6H PRN loose stool #14 06/14/23 A-D) caps ondansetron 4 mg disintegrating 4 mg PO DAILY PRN nausea and 06/14/23 tablet vomiting 5 days #14 tabs clindamycin HCl 300 mg capsule 300 mg PO Q6H #40 caps 07/11/23 mupirocin 2 % topical ointment 1 appl topical BID #15 grams 07/11/23 Allergies Allergy/AdvReac Type Severity Reaction Status Date / Time Penicillins [PENICILLINS] Allergy Unknown Rash Verified 07/10/23 15:42 Review of Systems 2 Review of Systems: Yes all other systems are reviewed and are negative [facility] Past Medical History Medical History GERD (gastroesophageal reflux disease) Chronic anticoagulation Pulmonary embolism Substance abuse HTN (hypertension) Kidney stones History of blood clots Social History Social History Alcohol intake: former Patient Tobacco Use Status: Former Tobacco user Substance Use Type: Former Substance User and Heroin Physical Exam 2 Vital Signs: Vital Signs: Last Vital Signs Temp 98.0 F 07/10/23 15:40 Pulse 78 07/10/23 15:40 Resp 18 07/10/23 15:40 BP 103/66 07/10/23 15:40 Pulse Ox 96 07/10/23 15:40 O2 Del Method Room Air 07/10/23 15:40 BMI result Body Mass Index 41.4 Extrem: Ankle/foot/toe images: 1. Small puncture wound no foreign body palpable Medications Administered Discontinued Medications Generic Name Dose Route Start Last Admin Trade Name Freq PRN Reason Stop Dose Admin Diphtheria/Tetanus/Acell Pertussis 0.5 ml 07/10/23 15:42 07/11/23 01:32 Diphth,Pertus(Acell),Tet Adult 0.5 Ml Syringe IM 07/10/23 15:43 0.5 ml .ONCE ONE Administration Medical Decision Making Medical Decision Making MDM Narrative: Small puncture wound left sole which cleaned and debris removed will discharge patient home on clindamycin Independent Interpretation I performed an independent interpretation of an: Plain X-Ray Radiology Impression Discussion of test interpretation with radiology: I have reviewed the radiologist's reading. Discharge Plan Discharge Clinical Impression: Puncture wound of foot, left Patient Disposition: Home, Self-Care Instructions: Puncture Wound in the Foot (ED) Additional Instructions: Local care as advised Take antibiotic as prescribed Report to the ER if worsening of the pain/redness or swelling Prescriptions: New clindamycin HCl 300 mg capsule 300 mg PO Q6H Qty: 40 0RF mupirocin 2 % ointment 1 appl topical BID Qty: 15 0RF No Action omeprazole magnesium [Prilosec OTC] 20 mg tablet,delayed release (DR/EC) 20 mg PO DAILY Qty: 14 0RF famotidine [Pepcid] 20 mg tablet 20 mg PO DAILY Qty: 30 0RF cyclobenzaprine 10 mg tablet 10 mg PO TID PRN (Reason: muscle spasm) Qty: 14 0RF lidocaine 4 % adhesive patch,medicated 1 patch topical DAILY PRN (Reason: pain) Qty: 10 0RF Rx Instructions: may leave on for up to 12 hrs tramadol 50 mg tablet 50 mg PO Q6H PRN (Reason: pain) Qty: 20 0RF doxycycline hyclate 100 mg capsule 100 mg PO BID Qty: 14 0RF cephalexin 500 mg capsule 500 mg PO QID 7 Days Qty: 28 0RF ondansetron 4 mg tablet,disintegrating 4 mg PO DAILY PRN (Reason: nausea and vomiting) 5 Days Qty: 14 0RF loperamide [Imodium A-D] 2 mg capsule 2 mg PO Q6H PRN (Reason: loose stool) Qty: 14 0RF Rx Instructions: 4 mg initially, followed by 2 mg after each loose stool; maximum: 16 mg/day. Limit use to =48 hours Print Language: Italian
[2023-07-11] MEDS: Bacitracin Oint 0.9 GM PACKET 1 APPL TOPICAL (02:06)
[2023-07-11] MEDS: Clindamycin HCL 300 MG CAPSULE PO (02:11)
[2023-07-11 02:20] VITALS: BP 118/73; PULSE 76; RESP 18; TEMP 36.7; O2SAT 97
[2023-07-11 02:22] VITALS: BP 118/73; PULSE 76; RESP 18; TEMP 36.7; O2SAT 97
== END 2023-07-11 02:23 | disposition home or self-care (01) ==
PROVIDERS: Emergency Provider Internal Medicine; PCP Internal Medicine
DX: S91.332A Puncture wound without foreign body, left foot, initial encounter (principal); I10 Essential (primary) hypertension; Z86.711 Personal history of pulmonary embolism; Z79.01 Long term (current) use of anticoagulants; W26.9XXA Contact with unspecified sharp object(s), initial encounter; Y93.9 Activity, unspecified; Y92.89 Other specified places as the place of occurrence of the external cause; Y99.9 Unspecified external cause status
CPT/HCPCS: 73630; 90471; 90715; 99284

== ENCOUNTER 2023-09-09 01:11 | Emergency (ER) | payer OTHER, SELFPAY ==
--- NOTE | 2023-09-09 | ECG_ITS ---
Test Reason : CHEST PAIN Blood Pressure : / mmHG Vent. Rate : 057 BPM Atrial Rate : 057 BPM P-R Int : 154 ms QRS Dur : 094 ms QT Int : 428 ms P-R-T Axes : 030 014 020 degrees QTc Int : 416 ms Sinus bradycardia Otherwise normal ECG When compared with ECG of 24-NOV-2021 15:57, No significant change was found Referred By: Generic ED Physician Electronically Signed By:PAUL BERNARDO
--- NOTE | ~2023-09-09 | CT_ITS ---
EXAMINATION: CT HEAD WITHOUT CONTRAST CLINICAL INFORMATION: Left-sided numbness COMPARISON: 01/15/2019 TECHNIQUE: Contiguous axial imaging was performed from the skull base to vertex without intravenous administration of contrast. This CT examination was performed using dose optimization techniques as appropriate, variously including the following: *Automated exposure control *Adjustment of mA and/or kV according to patient size (this includes techniques or standardized protocols for targeted exams where dose is matched to indication/reason for exam; i.e. extremities or head) *Use of iterative reconstruction technique DLP: 793 mGy-cm FINDINGS: There is no evidence of acute intracranial hemorrhage or territorial infarction. No abnormal mass-effect or midline shift is seen. Hawkins to white matter differentiation is well preserved. No extra-axial fluid collections are identified. The ventricles are normal in size. There is no abnormal attenuation within the brain parenchyma. The osseous structures and soft tissues are normal. The mastoid air cells and visualized portions of the paranasal sinuses are well-aerated. CT/CT head/brain wo IV con IMPRESSION: No acute intracranial pathology.
[2023-09-09 01:15] VITALS: BP 144/89; PULSE 60; RESP 18; TEMP 36.6; O2SAT 99; BMI 45.5
[2023-09-09 01:33] LABS: MANUAL DIFF FLAG NO
[2023-09-09 01:34] LABS: Basophils Absolute Auto 0.1 X10*3/uL (0.0-0.2); Basophils Percent Auto 0.8 % (0-2); Eosinophils Absolute Auto 0.2 X10*3/uL (0.0-0.4); Eosinophils Percent Auto 2.6 % (0-4); Hematocrit 36.7 % (42.0-52.0); Hemoglobin 12.5 g/dl (14.0-18.0); Imm Gran Abs Auto 0.03 X10*3/uL (0.00-0.03); Imm Gran Pct Auto 0.4 % (0.0-0.4); Lymphocytes Absolute Auto 2.8 X10*3/uL (1.2-4.9); Lymphocytes Percent Auto 35.2 % (20-40); Mean Corpuscular HGB Conc 34.1 g/dl (31.0-36.0); Mean Corpuscular Hemoglobin 29.8 pg (27.0-33.0); Mean Corpuscular Volume 87.4 fL (80.0-98.0); Mean Platelet Volume 9.6 fL (9.4-12.4); Monocytes Absolute Auto 0.9 X10*3/uL (0.1-1.2); Monocytes Percent Auto 11.1 % (2-11); Neutrophils Absolute Auto 3.9 x10*3/uL (2.0-8.3); Neutrophils Percent Auto 49.9 % (45-73); Platelet Count 197 X10*3/uL (160-400); Red Cell Distribution Width 12.9 % (11.0-16.0); White Blood Count 7.8 X10*3/uL (4.8-10.8)
[2023-09-09 01:41] LABS: INTERNATIONAL NORM RATIO 1.1 (0.9-1.1); Prothrombin Time 13.4 SEC (11.1-13.3)
[2023-09-09 01:50] LABS: Alanine Aminotransferase 30 U/L (0-40); Alkaline Phosphatase 71 U/L (39-117); Anion Gap 12 (12-20); Aspartate Amino Transferase 30 U/L (5-37); Bilirubin Total 0.4 mg/dL (0.0-1.0); Blood Urea Nitrogen 20 mg/dL (9-16); Calcium 9.8 mg/dL (8.4-10.2); Carbon Dioxide 28 mmol/L (22-29); Chloride 105 mmol/L (96-108); Creatinine Clr Calc Pharmacy 101.7; Estimated Glomerular Filt Rate > 60; Glucose Random 105 mg/dL (60-115); Potassium 3.9 mmol/L (3.3-5.1); Sodium 141 mmol/L (135-145); Total Protein 7.6 g/dL (6.5-8.0)
[2023-09-09 01:56] LABS: Troponin-I High Sensitivity < 2.7 ng/L (<3.5-35.0)
--- NOTE | 2023-09-09 02:29 | ED.CHESTPAIN ---
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 prior to that Related Data Previous Rx's ?Medication ?Instructions ?Recorded omeprazole magnesium 20 mg 20 mg PO DAILY #14 tabs 05/10/20 tablet,delayed release (Prilosec OTC) tramadol 50 mg tablet 50 mg PO Q6H PRN pain #20 tabs 01/06/21 famotidine 20 mg tablet (Pepcid) 20 mg PO DAILY #30 tabs 06/19/21 cyclobenzaprine 10 mg tablet 10 mg PO TID PRN muscle spasm #14 08/06/21 tabs lidocaine 4 % topical patch 1 patch topical DAILY PRN pain #10 08/06/21 ea cephalexin 500 mg capsule 500 mg PO QID 7 days #28 caps 09/15/22 doxycycline hyclate 100 mg capsule 100 mg PO BID #14 caps 09/15/22 loperamide 2 mg capsule (Imodium 2 mg PO Q6H PRN loose stool #14 06/14/23 A-D) caps ondansetron 4 mg disintegrating 4 mg PO DAILY PRN nausea and 06/14/23 tablet vomiting 5 days #14 tabs clindamycin HCl 300 mg capsule 300 mg PO Q6H #40 caps 07/11/23 mupirocin 2 % topical ointment 1 appl topical BID #15 grams 07/11/23 Allergies Allergy/AdvReac Type Severity Reaction Status Date / Time Penicillins [PENICILLINS] Allergy Unknown Rash Verified 09/09/23 01:20 Review of Systems Review of Systems: Yes all other systems are reviewed and are negative PMFSH Past Medical History Medical History GERD (gastroesophageal reflux disease) Chronic anticoagulation Pulmonary embolism Substance abuse HTN (hypertension) Kidney stones History of blood clots Social History Social History Alcohol intake: former Patient Tobacco Use Status: Former Tobacco user Substance Use Type: Former Substance User and Heroin Advance Directives: No Advance Directives Information Provided: No Do you have a plan to hurt others: No Plan Physical Exam Vital Signs: Vital Signs: Last Vital Signs Temp 97.9 F 09/09/23 03:48 Pulse 60 09/09/23 03:48 Resp 18 09/09/23 03:48 BP 144/89 H 09/09/23 03:48 Pulse Ox 99 09/09/23 03:48 O2 Del Method Room Air 09/09/23 03:48 BMI result Body Mass Index 45.5 Appearance: Alert. Oriented X3. No acute distress. Eyes: No pallor or icterus ENT: Pharynx normal. Oral Mucosa moist Neck: Normal inspection. Neck supple. No midline tenderness CVS: Normal heart rate and rhythm. Pulses normal. Respiratory: No respiratory distress. Equal air entry bilateral, no wheezing/rales/rhonchi Abdomen: Soft and nontender. Bowel sounds are present, no mass palpable, Skin: Skin warm and dry. Normal skin color. Normal skin turgor. Extremities: No lower extremity edema. No calf tenderness Neuro: Oriented X 3. No motor deficit. No sensory deficit.No cerebellar signs , cranial nerves II-XII intact Medical Decision Making Medical Decision Making [facility] Narrative: Patient with left arm muscular pain likely with no dermatomal sensory deficits cardiac enzymes negative D-dimer negative head CT also negative discharge patient home Differential Diagnosis Differential Diagnoses: The differential diagnosis associated with the presentation includes ACS/musculoskeletal/pinched nerve/carpal tunnel/TIA Lab Data [facility] Lab Attestation statement: I reviewed the patient's lab results. 09/09/23 01:26 09/09/23 01:26 Labs: Lab Results 09/09/23 Range/Units 01:26 WBC 7.8 (4.8-10.8) X10*3/uL RBC 4.20 L (4.60-5.80) X10*6/uL Hgb 12.5 L (14.0-18.0) g/dl Hct 36.7 L (42.0-52.0) % MCV 87.4 (80.0-98.0) fL MCH 29.8 (27.0-33.0) pg MCHC 34.1 (31.0-36.0) g/dl RDW 12.9 (11.0-16.0) % Plt Count 197 (160-400) X10*3/uL MPV 9.6 (9.4-12.4) fL Immature Gran % (Auto) 0.4 (0.0-0.4) % Neut % (Auto) 49.9 (45-73) % Lymph % (Auto) 35.2 (20-40) % Warren % (Auto) 11.1 H (2-11) % Eos % (Auto) 2.6 (0-4) % Baso % (Auto) 0.8 (0-2) % Lymph # (Auto) 2.8 (1.2-4.9) X10*3/uL Warren # (Auto) 0.9 (0.1-1.2) X10*3/uL Eos # (Auto) 0.2 (0.0-0.4) X10*3/uL Baso # (Auto) 0.1 (0.0-0.2) X10*3/uL Abs Immat Gran (auto) 0.03 (0.00-0.03) X10*3/uL Absolute Neuts (auto) 3.9 (2.0-8.3) x10*3/uL Absolute Nucleated RBC 0.000 (0.0-0.012) X10*3/uL Nucleated RBC % (auto) 0.0 (0.0-0.2) /100WBC PT 13.4 H (11.1-13.3) SEC INR 1.1 (0.9-1.1) D-Dimer High Sensitivty < 150 NG/ML Sodium 141 (135-145) mmol/L Potassium 3.9 (3.3-5.1) mmol/L Chloride 105 (96-108) mmol/L Carbon Dioxide 28 (22-29) mmol/L Anion Gap 12 (12-20) BUN 20 H (9-16) mg/dL Creatinine 1.05 (0.5-1.4) mg/dL Estim Creat Clear Calc 101.7 Estimated GFR > 60 Random Glucose 105 (60-115) mg/dL Calcium 9.8 (8.4-10.2) mg/dL Total Bilirubin 0.4 (0.0-1.0) mg/dL AST 30 (5-37) U/L ALT 30 (0-40) U/L Alkaline Phosphatase 71 (39-117) U/L Troponin I High Sens < 2.7 (<3.5-35.0) ng/L Total Protein 7.6 (6.5-8.0) g/dL Albumin 4.0 (3.5-5.0) g/dL Independent Interpretation I performed an independent interpretation of an: EKG and CT Scan Interpretation: Sinus bradycardia heart rate 57 beats per minute normal intervals normal axis no acute ST T wave changes no acute ischemia Radiology Impression Discussion of test interpretation with radiology: I have reviewed the radiologist's reading. Discharge Plan Discharge Clinical Impression: Musculoskeletal arm pain, Chest pain Patient Disposition: Home, Self-Care Instructions: Chest Pain (ED), Arm Pain (ED) Additional Instructions: Your pain is is likely musculoskeletal Take Tylenol for pain Follow with PCP if gets worse Prescriptions: No Action omeprazole magnesium [Prilosec OTC] 20 mg tablet,delayed release (DR/EC) 20 mg PO DAILY Qty: 14 0RF famotidine [Pepcid] 20 mg tablet 20 mg PO DAILY Qty: 30 0RF cyclobenzaprine 10 mg tablet 10 mg PO TID PRN (Reason: muscle spasm) Qty: 14 0RF lidocaine 4 % adhesive patch,medicated 1 patch topical DAILY PRN (Reason: pain) Qty: 10 0RF Rx Instructions: may leave on for up to 12 hrs tramadol 50 mg tablet 50 mg PO Q6H PRN (Reason: pain) Qty: 20 0RF doxycycline hyclate 100 mg capsule 100 mg PO BID Qty: 14 0RF cephalexin 500 mg capsule 500 mg PO QID 7 Days Qty: 28 0RF ondansetron 4 mg tablet,disintegrating 4 mg PO DAILY PRN (Reason: nausea and vomiting) 5 Days Qty: 14 0RF loperamide [Imodium A-D] 2 mg capsule 2 mg PO Q6H PRN (Reason: loose stool) Qty: 14 0RF Rx Instructions: 4 mg initially, followed by 2 mg after each loose stool; maximum: 16 mg/day. Limit use to =48 hours clindamycin HCl 300 mg capsule 300 mg PO Q6H Qty: 40 0RF mupirocin 2 % ointment 1 appl topical BID Qty: 15 0RF Interventions: ED Discharge Assessment Last Done: 09/09/23 03:48 Discharge Date/Time: 09/09/23 03:49 Print Language: Macedonian
[2023-09-09 03:02] LABS: D Dimer High Sensitivity < 150 NG/ML
[2023-09-09 03:48] VITALS: BP 144/89; PULSE 60; RESP 18; TEMP 36.6; O2SAT 99
== END 2023-09-09 03:49 | disposition home or self-care (01) ==
PROVIDERS: Emergency Provider Internal Medicine; PCP Internal Medicine
DX: R07.89 Other chest pain (principal); R20.0 Anesthesia of skin; I25.10 Atherosclerotic heart disease of native coronary artery without angina pectoris; M79.10 Myalgia, unspecified site; Z79.01 Long term (current) use of anticoagulants; Z79.899 Other long term (current) drug therapy
CPT/HCPCS: 36415; 70450; 80053; 84484; 85025; 85379; 85610; 93005; 99283; 99284

== ENCOUNTER → 2023-09-09 01:11 | Outpatient (BNV) | payer OTHER, SELFPAY | PROVIDERS: Emergency Provider Internal Medicine; PCP Internal Medicine; Visit Provider Internal Medicine | DX: R00.1 Bradycardia, unspecified (principal) | CPT/HCPCS: 93010 ==

== ENCOUNTER 2023-10-28 18:05 | Emergency (ER) | payer OTHER, SELFPAY ==
--- NOTE | ~2023-10-28 | XR_ITS ---
EXAMINATION: XR CHEST 2 VIEWS CLINICAL INFORMATION: Chest pain. COMPARISON: Chest radiograph. 02/27/2023; CTA chest 01/04/2021. TECHNIQUE: Frontal and lateral views of the chest were obtained. FINDINGS: The heart, great vessels, pulmonary vasculature and mediastinum are normal. The lungs show no focal infiltrate, effusion or pneumothorax. There is no acute osseous abnormality. A metallic foreign body is again seen related to the anterior left chest soft tissues, consistent with prior chest CT findings (01/04/2021; 6.17) XR/XR chest 2V IMPRESSION: No active cardiopulmonary disease. Electronically signed by: Tyler Barton MD 10/28/2023 09:52 PM EDT RP
[2023-10-28 18:35] VITALS: BP 145/68; PULSE 90; RESP 16; TEMP 36.9; O2SAT 98; BMI 46.6
--- NOTE | 2023-10-28 18:41 | ECG_ITS ---
Test Reason : lt shoulder pain Blood Pressure : / mmHG Vent. Rate : 076 BPM Atrial Rate : 076 BPM P-R Int : 142 ms QRS Dur : 096 ms QT Int : 378 ms P-R-T Axes : 031 017 028 degrees QTc Int : 425 ms Normal sinus rhythm Normal ECG When compared with ECG of 09-SEP-2023 01:11, No significant change was found Referred By: Sebastian Fong Electronically Signed By:TRACEY PARNELL
--- NOTE | 2023-10-28 18:42 | ED_ITS ---
HPI - General Adult General Chief complaint: Neck Pain/Injury Stated complaint: left side pain from the neck around the back Time Seen by Provider: 10/29/23 01:27 Source: patient Mode of arrival: ambulatory Limitations: no limitations History of Present Illness ED Provider: Dr. Mable Prasad HPI narrative: Patient comes to the emergency room complaining of left-sided neck pain, shoulder pain and more intense over the anterior left side of the chest and below the axilla. Patient states that over the last 2 days he has had symptoms including lightheadedness, dizziness described as near syncope, fatigue. Patient states that he called his PCP to schedule an appointment but they sent him to the emergency room. Patient states that he has been working with pain that is constant for about a day. Patient has history of DVTs and takes Xarelto. Patient takes that he is compliant with his medication. Related Data Previous Rx's ?Medication ?Instructions ?Recorded omeprazole magnesium 20 mg 20 mg PO DAILY #14 tabs 05/10/20 tablet,delayed release (Prilosec OTC) tramadol 50 mg tablet 50 mg PO Q6H PRN pain #20 tabs 01/06/21 famotidine 20 mg tablet (Pepcid) 20 mg PO DAILY #30 tabs 06/19/21 cyclobenzaprine 10 mg tablet 10 mg PO TID PRN muscle spasm #14 08/06/21 tabs lidocaine 4 % topical patch 1 patch topical DAILY PRN pain #10 08/06/21 ea cephalexin 500 mg capsule 500 mg PO QID 7 days #28 caps 09/15/22 doxycycline hyclate 100 mg capsule 100 mg PO BID #14 caps 09/15/22 loperamide 2 mg capsule (Imodium 2 mg PO Q6H PRN loose stool #14 06/14/23 A-D) caps ondansetron 4 mg disintegrating 4 mg PO DAILY PRN nausea and 06/14/23 tablet vomiting 5 days #14 tabs clindamycin HCl 300 mg capsule 300 mg PO Q6H #40 caps 07/11/23 mupirocin 2 % topical ointment 1 appl topical BID #15 grams 07/11/23 Allergies Allergy/AdvReac Type Severity Reaction Status Date / Time Penicillins [PENICILLINS] Allergy Unknown Rash Verified 10/28/23 18:37 Review of Systems 2 Review of Systems: Constitutional : No Weight loss, No Fever, No Chills, No Night Sweats, No Fatigue, No Malaise ENT/Mouth : No Hearing loss, No Ear Pain, No Nasal Congestion, No Sinus Pain, No Hoarseness, No sore throat, No Rhinorrhea, No Swallowing Difficulty Eyes: No Eye Pain, No Swelling, No Redness, No Foreign Body, No Discharge, No Vision Changes Cardiovascular : Complaining of left-sided chest pain worse on the anterior and lateral aspect of the ribcage, pain radiating towards the left side of the neck. Chest Pain, No SOB, No Dyspnea on Exertion, No Orthopnea, No Edema, No Palpitations Respiratory : No Cough, No Sputum, No Wheezing, No Smoke Exposure, No Dyspnea Gastrointestinal : No Nausea, No Vomiting, No Diarrhea, No Constipation, No abdominal Pain, No Hematochezia, No Melena Genitourinary : no irregular bleeding, No Dysuria, No Urinary Frequency, No Hematuria, No Urinary Incontinence, No Urgency, No Flank Pain, No Urinary Flow Changes, No Hesitancy Musculoskeletal : No joint pain, No Myalgias, No Joint Swelling Skin : No Skin Lesions, No rash Neuro : No Weakness, No Numbness, No Paresthesias, No Loss of Consciousness, No Dizziness, No Headache Psych : No Anxiety/Panic, No Depression, No SI/HI/AH/VH, No Social Issues, Heme/Lymph: No Bruising, No Bleeding,No Lymphadenopathy Endocrine : No Polyuria, No Polydipsia, No Temperature Intolerance PMFSH Past Medical History Medical History GERD (gastroesophageal reflux disease) Chronic anticoagulation Pulmonary embolism Substance abuse HTN (hypertension) Kidney stones History of blood clots Social History Social History Alcohol intake: former Patient Tobacco Use Status: Former Tobacco user Substance Use Type: Former Substance User and Heroin Advance Directives: No Advance Directives Information Provided: No Do you have a plan to hurt others: No Plan Physical Exam ED Vital Signs: Vital Signs - 24 hr 10/28/23 18:35 10/28/23 22:00 10/29/23 01:33 Temperature 98.5 F 98.4 F 98.0 F Pulse Rate 90 90 78 Respiratory Rate 16 16 20 Blood Pressure 145/68 H 140/70 H 155/87 H Pulse Oximetry 98 98 98 Oxygen Delivery Method Room Air Room Air Room Air 10/29/23 02:04 Temperature 98.0 F Pulse Rate 78 Respiratory Rate 20 Blood Pressure 155/87 H Pulse Oximetry 98 Oxygen Delivery Method Room Air BMI result Body Mass Index 46.6 Const Other: Appearance: Alert. Oriented X3. No acute distress. Eyes: Pupils equal, round and reactive to light. ENT: Pharynx normal. Neck: Normal inspection. Neck supple. No lymph nodes noted. No crepitus CVS: Normal heart rate and rhythm. Pulses normal. Normal S1 and S2 Respiratory: No respiratory distress. Breath sounds normal. No Wheezing. No rales Abdomen: Soft and nontender. No rigidity. No distention. Skin: Skin warm and dry. Normal skin color. Normal skin turgor. Extremities: No lower extremity edema. No Lacerations. No Rash Neuro: Oriented X 3. No motor deficit. No sensory deficit. Moving all extremities. No slurred speech. CN 2 through 12 grossly intact Psych: calm, cooperative, normal affect Course Course Course Narrative: REM: DOne by AMBER Fong: 48-year-old male history of blood clots presents to ED for left shoulder pain, left rib pain/back pain that is worse on movement. Patient was sent by primary care for evaluation due to history of pulmonary embolus. Patient denies any pleurisy, leg swelling, or calf pain. EKG labs chest x-ray ordered. Medical Decision Making Medical Decision Making MDM Narrative: My interpretation of EKG: Normal sinus rhythm, heart rate 76, no ST segment depression or elevation, no T-wave inversion, QTC 425 -my interpretation of labs: At baseline hematology and chemistry, normal troponin, normal LFTs -my interpretation of chest x-ray, no obvious abnormality -I discussed with the patient that his symptoms are concerning for a pulmonary embolism and ACS even though he takes Xarelto and is compliant with his medications. Discussed with the patient that we should check again blood work, repeat troponin and also get a CTA to rule out pulmonary embolism as he is at high risk of a PE. Patient states that he has to be at work in 2 hours. I offered to the patient a work note and to stay to complete the workup. Patient declined to continue the workup and requested to be discharged home. Patient states that he will call his PCP today. I thoroughly discussed with the patient that a pulmonary embolism or ACS are life-threatening conditions. Patient states that he understands but he is adamant that he can not miss work today. Patient will be leaving against medical advice Differential Diagnosis Differential Diagnoses: The differential diagnosis associated with the presentation includes (Musculoskeletal pain, costochondritis, ACS, pulmonary embolism, pneumonia) Admission/Observation Consideration of admission/observation: Escalation of care including admission/observation considered (Given the patient's past medical history and current symptoms, observation considered.) Lab Data MDM Lab Attestation statement: I reviewed the patient's lab results. 10/28/23 18:54 10/28/23 18:54 Labs: Lab Results 10/28/23 Range/Units 18:54 WBC 8.6 (4.8-10.8) X10*3/uL RBC 4.30 L (4.60-5.80) X10*6/uL Hgb 12.7 L (14.0-18.0) g/dl Hct 37.2 L (42.0-52.0) % MCV 86.5 (80.0-98.0) fL MCH 29.5 (27.0-33.0) pg MCHC 34.1 (31.0-36.0) g/dl RDW 12.9 (11.0-16.0) % Plt Count 210 (160-400) X10*3/uL MPV 9.4 (9.4-12.4) fL Immature Gran % (Auto) 0.9 H (0.0-0.4) % Neut % (Auto) 58.7 (45-73) % Lymph % (Auto) 29.0 (20-40) % [place] % (Auto) 9.0 (2-11) % Eos % (Auto) 1.7 (0-4) % Baso % (Auto) 0.7 (0-2) % Lymph # (Auto) 2.5 (1.2-4.9) X10*3/uL [place] # (Auto) 0.8 (0.1-1.2) X10*3/uL Eos # (Auto) 0.2 (0.0-0.4) X10*3/uL Baso # (Auto) 0.1 (0.0-0.2) X10*3/uL Abs Immat Gran (auto) 0.08 H (0.00-0.03) X10*3/uL Absolute Neuts (auto) 5.0 (2.0-8.3) x10*3/uL Absolute Nucleated RBC 0.000 (0.0-0.012) X10*3/uL Nucleated RBC % (auto) 0.0 (0.0-0.2) /100WBC PT 15.0 H (11.1-13.3) SEC INR 1.2 H (0.9-1.1) APTT 34.2 (26.0-36.8) SEC Sodium 142 (135-145) mmol/L Potassium 3.8 (3.3-5.1) mmol/L Chloride 104 (96-108) mmol/L Carbon Dioxide 27 (22-29) mmol/L Anion Gap 15 (12-20) BUN 19 H (9-16) mg/dL Creatinine 1.17 (0.5-1.4) mg/dL Estim Creat Clear Calc 99.0 Estimated GFR > 60 Random Glucose 96 (60-115) mg/dL Calcium 9.9 (8.4-10.2) mg/dL Total Bilirubin 0.3 (0.0-1.0) mg/dL AST 26 (5-37) U/L ALT 34 (0-40) U/L Alkaline Phosphatase 69 (39-117) U/L Troponin I High Sens < 2.7 (<3.5-35.0) ng/L B-Natriuretic Peptide 31 (<100) pg/mL Total Protein 7.6 (6.5-8.0) g/dL Albumin 4.2 (3.5-5.0) g/dL Independent Interpretation I performed an independent interpretation of an: CT Scan Radiology Impression Discussion of test interpretation with radiology: I have reviewed the radiologist's reading. Radiologist Impression: The heart, great vessels, pulmonary vasculature and mediastinum are normal. The lungs show no focal infiltrate, effusion or pneumothorax. There is no acute osseous abnormality. A metallic foreign body is again seen related to the anterior left chest soft tissues, consistent with prior chest CT findings (01/04/2021; 6.17) XR/XR chest 2V IMPRESSION: No active cardiopulmonary disease. Critical Care Time Critical Care Time Critical Care Time: Yes Total Critical Care Time: 45 Attestation: I have personally provided critical care time. Time includes review of lab data, radiology results, discussion with consultants, and monitoring for potential decompensation. Intervention performed as documented. Discharge Plan Discharge Clinical Impression: Acute shoulder pain, Acute neck pain Patient Disposition: Left Against Medical Advice Instructions: Deep Vein Thrombosis (ED) Additional Instructions: Your refused to stay to complete the workup. We could not rule out a pulmonary embolism. Having a pulmonary embolism may be lethal. Please follow-up with your primary care physician tomorrow. If you have any worsening or new symptoms, please return to the emergency room or call 911 Prescriptions: No Action omeprazole magnesium [Prilosec OTC] 20 mg tablet,delayed release (DR/EC) 20 mg PO DAILY Qty: 14 0RF famotidine [Pepcid] 20 mg tablet 20 mg PO DAILY Qty: 30 0RF cyclobenzaprine 10 mg tablet 10 mg PO TID PRN (Reason: muscle spasm) Qty: 14 0RF lidocaine 4 % adhesive patch,medicated 1 patch topical DAILY PRN (Reason: pain) Qty: 10 0RF Rx Instructions: may leave on for up to 12 hrs tramadol 50 mg tablet 50 mg PO Q6H PRN (Reason: pain) Qty: 20 0RF doxycycline hyclate 100 mg capsule 100 mg PO BID Qty: 14 0RF cephalexin 500 mg capsule 500 mg PO QID 7 Days Qty: 28 0RF ondansetron 4 mg tablet,disintegrating 4 mg PO DAILY PRN (Reason: nausea and vomiting) 5 Days Qty: 14 0RF loperamide [Imodium A-D] 2 mg capsule 2 mg PO Q6H PRN (Reason: loose stool) Qty: 14 0RF Rx Instructions: 4 mg initially, followed by 2 mg after each loose stool; maximum: 16 mg/day. Limit use to =48 hours clindamycin HCl 300 mg capsule 300 mg PO Q6H Qty: 40 0RF mupirocin 2 % ointment 1 appl topical BID Qty: 15 0RF Stand Alone Forms: Against Medical Advice Interventions: ED Discharge Assessment Last Done: 10/29/23 02:04 Discharge Date/Time: 10/29/23 02:05 Print Language: Lithuanian
[2023-10-28 19:00] LABS: MANUAL DIFF FLAG NO
[2023-10-28 19:14] LABS: Basophils Absolute Auto 0.1 X10*3/uL (0.0-0.2); Basophils Percent Auto 0.7 % (0-2); Eosinophils Absolute Auto 0.2 X10*3/uL (0.0-0.4); Eosinophils Percent Auto 1.7 % (0-4); Hematocrit 37.2 % (42.0-52.0); Hemoglobin 12.7 g/dl (14.0-18.0); Imm Gran Abs Auto 0.08 X10*3/uL (0.00-0.03); Imm Gran Pct Auto 0.9 % (0.0-0.4); Lymphocytes Absolute Auto 2.5 X10*3/uL (1.2-4.9); Mean Corpuscular HGB Conc 34.1 g/dl (31.0-36.0); Mean Corpuscular Hemoglobin 29.5 pg (27.0-33.0); Mean Corpuscular Volume 86.5 fL (80.0-98.0); Mean Platelet Volume 9.4 fL (9.4-12.4); Monocytes Absolute Auto 0.8 X10*3/uL (0.1-1.2); Neutrophils Percent Auto 58.7 % (45-73); Platelet Count 210 X10*3/uL (160-400); Red Cell Distribution Width 12.9 % (11.0-16.0); White Blood Count 8.6 X10*3/uL (4.8-10.8)
[2023-10-28 19:15] LABS: INTERNATIONAL NORM RATIO 1.2 (0.9-1.1)
[2023-10-28 19:17] LABS: Partial Thromboplastin Time 34.2 SEC (26.0-36.8)
[2023-10-28 19:26] LABS: Alanine Aminotransferase 34 U/L (0-40); Albumin Level 4.2 g/dL (3.5-5.0); Alkaline Phosphatase 69 U/L (39-117); Anion Gap 15 (12-20); Aspartate Amino Transferase 26 U/L (5-37); Bilirubin Total 0.3 mg/dL (0.0-1.0); Blood Urea Nitrogen 19 mg/dL (9-16); Calcium 9.9 mg/dL (8.4-10.2); Carbon Dioxide 27 mmol/L (22-29); Chloride 104 mmol/L (96-108); Estimated Glomerular Filt Rate > 60; Glucose Random 96 mg/dL (60-115); Potassium 3.8 mmol/L (3.3-5.1); Sodium 142 mmol/L (135-145); Total Protein 7.6 g/dL (6.5-8.0)
[2023-10-28 19:32] LABS: B Type Natriuretic Peptide 31 pg/mL (<100)
[2023-10-28 19:36] LABS: Troponin-I High Sensitivity < 2.7 ng/L (<3.5-35.0)
[2023-10-28 22:00] VITALS: BP 140/70; PULSE 90; RESP 16; TEMP 36.9; O2SAT 98
[2023-10-29 01:33] VITALS: BP 155/87; PULSE 78; RESP 20; TEMP 36.7; O2SAT 98
[2023-10-29 02:04] VITALS: BP 155/87; PULSE 78; RESP 20; TEMP 36.7; O2SAT 98
== END 2023-10-29 02:05 | disposition left against medical advice (07) ==
PROVIDERS: Physician Assistant; Emergency Provider Emergency Medicine; PCP Internal Medicine
DX: M25.512 Pain in left shoulder (principal); M54.50 Low back pain, unspecified; R07.81 Pleurodynia; M54.2 Cervicalgia; R07.89 Other chest pain; Z86.718 Personal history of other venous thrombosis and embolism; Z79.01 Long term (current) use of anticoagulants; Z79.899 Other long term (current) drug therapy
CPT/HCPCS: 36415; 71046; 80053; 83880; 84484; 85025; 85610; 85730; 93005; 99283

== ENCOUNTER 2024-02-20 09:39 | Emergency (ER) | payer OTHER, SELFPAY ==
--- NOTE | ~2024-02-20 | XR_ITS ---
CLINICAL HISTORY: CP 2 view chest x-ray Comparison: 10/28/2023 Findings: No consolidation or effusion. Normal size heart. No acute fracture. IMPRESSION: 1. No acute findings. This document has been electronically signed by: Saavge Frank MD on 02/20/2024 11:23:05
--- NOTE | 2024-02-20 09:45 | ECG_ITS ---
Test Reason : CP Blood Pressure : / mmHG Vent. Rate : 069 BPM Atrial Rate : 069 BPM P-R Int : 140 ms QRS Dur : 092 ms QT Int : 388 ms P-R-T Axes : 040 007 018 degrees QTc Int : 415 ms Sinus rhythm with Premature atrial complexes Otherwise normal ECG When compared with ECG of 28-OCT-2023 18:43, Premature atrial complexes are now Present Referred By: Generic ED Physician Electronically Signed By:PAUL BERNARDO
[2024-02-20 09:58] VITALS: BP 131/71; PULSE 87; RESP 18; TEMP 37.1; O2SAT 97; BMI 45.6
[2024-02-20 10:23] LABS: MANUAL DIFF FLAG NO
[2024-02-20 10:24] LABS: Basophils Absolute Auto 0.1 X10*3/uL (0.0-0.2); Basophils Percent Auto 0.9 % (0-2); Eosinophils Absolute Auto 0.2 X10*3/uL (0.0-0.4); Eosinophils Percent Auto 2.5 % (0-4); Hematocrit 38.3 % (42.0-52.0); Hemoglobin 12.9 g/dl (14.0-18.0); Imm Gran Abs Auto 0.03 X10*3/uL (0.00-0.03); Imm Gran Pct Auto 0.5 % (0.0-0.4); Lymphocytes Absolute Auto 1.7 X10*3/uL (1.2-4.9); Lymphocytes Percent Auto 26.4 % (20-40); Mean Corpuscular HGB Conc 33.7 g/dl (31.0-36.0); Mean Corpuscular Hemoglobin 29.7 pg (27.0-33.0); Mean Platelet Volume 9.5 fL (9.4-12.4); Monocytes Absolute Auto 0.5 X10*3/uL (0.1-1.2); Monocytes Percent Auto 7.9 % (2-11); Neutrophils Percent Auto 61.8 % (45-73); Platelet Count 202 X10*3/uL (160-400); Red Blood Count 4.35 X10*6/uL (4.60-5.80); Red Cell Distribution Width 12.5 % (11.0-16.0); White Blood Count 6.4 X10*3/uL (4.8-10.8)
[2024-02-20 10:39] LABS: Alanine Aminotransferase 41 U/L (0-40); Albumin Level 4.2 g/dL (3.5-5.0); Alkaline Phosphatase 85 U/L (39-117); Anion Gap 13 (12-20); Aspartate Amino Transferase 34 U/L (5-37); Bilirubin Total 0.2 mg/dL (0.0-1.0); Blood Urea Nitrogen 16 mg/dL (9-16); Calcium 9.7 mg/dL (8.4-10.2); Carbon Dioxide 25 mmol/L (22-29); Chloride 107 mmol/L (96-108); Creatinine Clr Calc Pharmacy 121.5; Estimated Glomerular Filt Rate > 60; Glucose Random 111 mg/dL (60-115); Potassium 4.1 mmol/L (3.3-5.1); Sodium 141 mmol/L (135-145); Total Protein 7.7 g/dL (6.5-8.0)
--- NOTE | 2024-02-20 10:43 | ED.CHESTPAIN ---
HPI - Chest Pain General Chief Complaint: Dizziness Stated Complaint: chest pain, dizziness Time Seen by Provider: 02/20/24 10:23 Source: patient Mode of arrival: ambulatory Limitations: no limitations History of Present Illness ED Provider: Emelia Hall APRN HPI narrative: 48 yo male with a history of PE on xarelto, HTN, OUD on methadone (former IVDA >20 yrs ago), hepatitis c s/p treatment here with complaints of right sided chest pain described as constant mild discomfort since 6am. Patient reports he was standing in front of the washing machine (not doing activity) when the pain began at 0600. No associated shortness of breath, diaphoresis, vomiting, leg swelling or leg pain. He has been med compliant with no missed doses of his medication. He reports episodes of chest pain in the past with ER visits. He did follow-up with his PCP this year and was referred to a assistant superintendent at [facility] [place] reports he saw them 2-3 months ago and had a negative stress test. He denies any recent illnesses. No recent travel. No sick contact. No family history of SCD. Patient reports the last few days i feel like a headache is beginning but it never really comes. This is associated with some dizziness. Related Data Previous Rx's ?Medication ?Instructions ?Recorded omeprazole magnesium 20 mg 20 mg PO DAILY #14 tabs 05/10/20 tablet,delayed release (Prilosec OTC) tramadol 50 mg tablet 50 mg PO Q6H PRN pain #20 tabs 01/06/21 famotidine 20 mg tablet (Pepcid) 20 mg PO DAILY #30 tabs 06/19/21 cyclobenzaprine 10 mg tablet 10 mg PO TID PRN muscle spasm #14 08/06/21 tabs lidocaine 4 % topical patch 1 patch topical DAILY PRN pain #10 08/06/21 ea cephalexin 500 mg capsule 500 mg PO QID 7 days #28 caps 09/15/22 doxycycline hyclate 100 mg capsule 100 mg PO BID #14 caps 09/15/22 loperamide 2 mg capsule (Imodium 2 mg PO Q6H PRN loose stool #14 06/14/23 A-D) caps ondansetron 4 mg disintegrating 4 mg PO DAILY PRN nausea and 06/14/23 tablet vomiting 5 days #14 tabs clindamycin HCl 300 mg capsule 300 mg PO Q6H #40 caps 07/11/23 mupirocin 2 % topical ointment 1 appl topical BID #15 grams 07/11/23 Allergies Allergy/AdvReac Type Severity Reaction Status Date / Time Penicillins [PENICILLINS] Allergy Unknown Rash Verified 02/20/24 10:00 Review of Systems Review of Systems: Yes all other systems are reviewed and are negative Constitutional: Constitutional: Reports no additional constitutional complaints, Denies body ache(s), Denies chills, Denies fever(s), Reports headache(s) and Denies weakness Eyes: Eyes: Reports no additional eye complaints and Denies change in vision ENT: Reports system reviewed and no additional complaints, except as documented, Reports dizziness, Reports headache(s), Denies nasal congestion, Denies nasal discharge and Denies neck pain Cardiovascular: Cardiovascular: Reports no additional cardiovascular complaints, Reports chest pain, Denies leg edema and Denies dyspnea Respiratory: Respiratory: Reports no additional respiratory complaints, Denies cough and Denies dyspnea Gastrointestinal: Gastrointestinal: Reports no additional gastrointestinal complaints, Denies abdominal pain, Denies diarrhea, Denies nausea and Denies vomiting Genitourinary: Genitourinary: Denies urinary incontinence Musculoskeletal: Musculoskeletal: Reports no additional musculoskeletal complaints, Denies back pain, Denies arthralgias, Denies joint swelling, Denies neck pain, Denies numbness and Denies tingling Integumentary/Breasts: Skin/Breast: Reports system reviewed and no additional complaints, except as docu and Denies rash Neurologic: Reports system reviewed and no additional complaints, except as documented, Denies Abnormal speech present, Reports dizziness, Reports headache(s), Denies numbness, Denies tingling and Denies weakness [facility] Past Medical History Attestation statement: The following information was validated with the patient. Source: old records reviewed and nursing notes reviewed Medical History GERD (gastroesophageal reflux disease) Chronic anticoagulation Pulmonary embolism Substance abuse HTN (hypertension) Kidney stones History of blood clots Social History Social History Alcohol intake: former Patient Tobacco Use Status: Former Tobacco user Substance Use Type: Former Substance User and Heroin Advance Directives: No Advance Directives Information Provided: No Physical Exam Vital Signs: Vital Signs: Last Vital Signs Temp 98.7 F 02/20/24 09:58 Pulse 68 02/20/24 11:31 Resp 18 02/20/24 11:31 BP 115/58 L 02/20/24 11:31 Pulse Ox 96 02/20/24 11:31 O2 Del Method Room Air 02/20/24 11:31 BMI result Body Mass Index 45.6 Const: General: cooperative, healthy appearing, comfortable and no acute distress Orientation/consciousness: patient oriented x3 Limitations: no limitations HEENT: Head: Yes normal to inspection Ears: hearing grossly normal bilaterally and TM's normal bilaterally General nose exam: Normal external nose present Face and sinus: Yes normal facial exam Mouth: Normal oral and palatal mucosa present Throat: Yes posterior oropharynx normal Eyes: General: appearance normal, both eyes and all related structures Pupils: Equal, round and reactive pupils present Neck: Neck: Yes normal visual inspection, Yes full ROM, Yes no lymphadenopathy and Yes no meningeal signs Chest: Chest palpation & inspection: normal inspection of the chest Resp: Effort & Inspection: normal respiratory effort Auscultation: clear to auscultation bilaterally Cardio: Rate: regular rate Rhythm: regular rhythm Peripheral pulses: Peripheral pulses 2+ throughout GI: Inspection: Yes normal to inspection Palpation (GI): Soft to palpation and nontender Auscultation: normal bowel sounds Back/Spine/Pelvis: Thoracic/Lumbar Spine: thoracic and lumbar spine normal to inspection Skin: General skin exam: no rashes or lesions noted Neuro: General: patient oriented x3, moves all extremities, no meningeal signs, no focal motor deficits and normal sensation to monofilament Cranial nerves: Yes CN's II-XII intact bilaterally, Yes Equal, round and reactive pupils present, Yes Bilaterally intact EOM present, Yes Nystagmus not present, Yes Normal facial strength present and Yes Midline tongue present Cognition (Neuro): normal cognition Speech: No Abnormal speech present Gait exam (Neuro): Normal gait present Motor exam (neuro): 5/5 motor strength present throughout Sensory Exam: Normal double simultaneous stimulation for sensation Coordination: [id number] test normal, tubi-[id number] test normal and tandem gait normal Extrem: General: Yes normal to inspection, Yes no pedal edema and Yes no calf tenderness Course Course Course Narrative: Troponin x2 are negative. EKG is nonischemic. Chest x-ray shows no acute finding. Symptoms are not typical for ACS. Patient had a stress test 2 months ago which was negative. Reviewed this with the patient. Recommend he follow up outpatient with primary care doctor. Reviewed worrisome signs and symptoms of when to return to the emergency room. Comfortable plan for discharge home. Medical Decision Making Medical Decision Making [facility] Narrative: 48-year-old male here with atypical, nonexertional chest pain since 0600 and nonspecific dizziness and mild headache for the last few days with no focal neurological finding. Vitals are stable Exam normal Will obtain labs, EKG, chest x-ray and viral test Differential Diagnosis Differential Diagnoses: The differential diagnosis associated with the presentation includes Low suspicion for ACS as HPI is atypical and patient has had two negative troponins and a nonischemic EKG PE less likely as patient is compliant on xarelto Low suspicion for dissection with gradual onset of symptoms Low suspicion for SAH with gradual onset of PEDERSEN, no description as thunderclap or severe Low suspicion for meningitis or encephalitis with no meningeal signs, afebrile Low suspicious for cerebellar infarct with normal neuro exam Admission/Observation Consideration of admission/observation: Escalation of care including admission/observation considered Troponin x 2 negative, EKG non ischemic, HPI atypical for ACS and so I do not think admission is warranted Lab Data [facility] Lab Attestation statement: I reviewed the patient's lab results. 02/20/24 10:16 02/20/24 10:16 Labs: Lab Results 02/20/24 02/20/24 02/20/24 Range/Units 10:15 10:16 12:42 WBC 6.4 (4.8-10.8) X10*3/uL RBC 4.35 L (4.60-5.80) X10*6/uL Hgb 12.9 L (14.0-18.0) g/dl Hct 38.3 L (42.0-52.0) % MCV 88.0 (80.0-98.0) fL MCH 29.7 (27.0-33.0) pg MCHC 33.7 (31.0-36.0) g/dl RDW 12.5 (11.0-16.0) % Plt Count 202 (160-400) X10*3/uL MPV 9.5 (9.4-12.4) fL Immature Gran % (Auto) 0.5 H (0.0-0.4) % Neut % (Auto) 61.8 (45-73) % Lymph % (Auto) 26.4 (20-40) % [place] % (Auto) 7.9 (2-11) % Eos % (Auto) 2.5 (0-4) % Baso % (Auto) 0.9 (0-2) % Lymph # (Auto) 1.7 (1.2-4.9) X10*3/uL [place] # (Auto) 0.5 (0.1-1.2) X10*3/uL Eos # (Auto) 0.2 (0.0-0.4) X10*3/uL Baso # (Auto) 0.1 (0.0-0.2) X10*3/uL Abs Immat Gran (auto) 0.03 (0.00-0.03) X10*3/uL Absolute Neuts (auto) 4.0 (2.0-8.3) x10*3/uL Absolute Nucleated RBC 0.000 (0.0-0.012) X10*3/uL Nucleated RBC % (auto) 0.0 (0.0-0.2) /100WBC Sodium 141 (135-145) mmol/L Potassium 4.1 (3.3-5.1) mmol/L Chloride 107 (96-108) mmol/L Carbon Dioxide 25 (22-29) mmol/L Anion Gap 13 (12-20) BUN 16 (9-16) mg/dL Creatinine 0.91 (0.5-1.4) mg/dL Estim Creat Clear Calc 121.5 Estimated GFR > 60 Random Glucose 111 (60-115) mg/dL Calcium 9.7 (8.4-10.2) mg/dL Total Bilirubin 0.2 (0.0-1.0) mg/dL AST 34 (5-37) U/L ALT 41 H (0-40) U/L Alkaline Phosphatase 85 (39-117) U/L Troponin I High Sens 3.1 < 2.7 (<3.5-35.0) ng/L Total Protein 7.7 (6.5-8.0) g/dL Albumin 4.2 (3.5-5.0) g/dL Influenza Type A (PCR) NEGATIVE (Negative) Influenza Type B (PCR) NEGATIVE (Negative) RSV RNA Qual (PCR) NEGATIVE (Negative) SARS-CoV-2 RNA (RT-PCR) NEGATIVE (Negative) Independent Interpretation I performed an independent interpretation of an: EKG and Plain X-Ray Interpretation: And plan of the EKG which shows sinus rhythm with PACs with a rate of 69, normal ND, normal QRS normal QT I independently viewed the x-ray and agree with the radiologist's Radiology Impression Discussion of test interpretation with radiology: I have reviewed the radiologist's reading. Radiologist Impression: [address] [address] XRay Report Signed Patient: Junaid Patel MR#: [id number] : 1975 Acct:[id number] Age/Sex: 48 / M ADM Date: 02/20/24 Loc: .ED Attending Dr: Ordering Physician: Wesley Chadwick MD Date of Service: 02/20/24 Procedure(s): XR chest 2V Accession Number(s): [id number] cc: Wesley Chadwick MD; [facility] CLINICAL HISTORY: CP 2 view chest x-ray Comparison: 10/28/2023 Findings: No consolidation or effusion. Normal size heart. No acute fracture. IMPRESSION: 1. No acute findings. This document has been electronically signed by: Savage Farnk MD on 02/20/2024 11:23:05 External Record Review External record reviewed: Prior outpatient radiology Reviewed stress test from 12/09/2023 [facility] which shows normal test no evidence of ischemia. Tests considered The following testing was considered but not selected: Low suspicion for PE as patient is compliant with AC therapy and therefore I do not believe a CTA is necessary to r/o PE Discharge Plan Discharge Clinical Impression: Chest pain Patient Disposition: Home, Self-Care Instructions: Chest Pain (ED) Additional Instructions: Your blood work is reassuring. Your EKG is normal. Your chest x-ray is normal. Your testing for flu and COVID and RSV are negative We were able to review your records of your stress test which are normal Please follow up outpatient with your primary care doctor. Please return to the emergency room for any worsening symptoms Prescriptions: No Action omeprazole magnesium [Prilosec OTC] 20 mg tablet,delayed release (DR/EC) 20 mg PO DAILY Qty: 14 0RF famotidine [Pepcid] 20 mg tablet 20 mg PO DAILY Qty: 30 0RF cyclobenzaprine 10 mg tablet 10 mg PO TID PRN (Reason: muscle spasm) Qty: 14 0RF lidocaine 4 % adhesive patch,medicated 1 patch topical DAILY PRN (Reason: pain) Qty: 10 0RF Rx Instructions: may leave on for up to 12 hrs tramadol 50 mg tablet 50 mg PO Q6H PRN (Reason: pain) Qty: 20 0RF doxycycline hyclate 100 mg capsule 100 mg PO BID Qty: 14 0RF cephalexin 500 mg capsule 500 mg PO QID 7 Days Qty: 28 0RF ondansetron 4 mg tablet,disintegrating 4 mg PO DAILY PRN (Reason: nausea and vomiting) 5 Days Qty: 14 0RF loperamide [Imodium A-D] 2 mg capsule 2 mg PO Q6H PRN (Reason: loose stool) Qty: 14 0RF Rx Instructions: 4 mg initially, followed by 2 mg after each loose stool; maximum: 16 mg/day. Limit use to =48 hours clindamycin HCl 300 mg capsule 300 mg PO Q6H Qty: 40 0RF mupirocin 2 % ointment 1 appl topical BID Qty: 15 0RF Referrals: Dian Chu [Primary Care Provider] - 1 week Print Language: Paraguayan
[2024-02-20 10:46] LABS: Troponin-I High Sensitivity 3.1 ng/L (<3.5-35.0)
[2024-02-20 11:10] LABS: Influenza A PCR NEGATIVE (Negative); Influenza B PCR NEGATIVE (Negative); Resp Syncy Virus RNA Qual PCR NEGATIVE (Negative); SARS COV2 PCR INHOUSE NEGATIVE (Negative)
[2024-02-20 11:31] VITALS: BP 115/58; PULSE 68; RESP 18; O2SAT 96
[2024-02-20 13:16] LABS: Troponin-I High Sensitivity < 2.7 ng/L (<3.5-35.0)
[2024-02-20 13:27] VITALS: BP 120/68; PULSE 76; RESP 18; TEMP 37; O2SAT 98
== END 2024-02-20 13:29 | disposition home or self-care (01) ==
PROVIDERS: Nurse Practitioner Family; Emergency Provider Emergency Medicine; PCP Internal Medicine
DX: R07.89 Other chest pain (principal); R42 Dizziness and giddiness; I10 Essential (primary) hypertension; Z03.818 Encounter for observation for suspected exposure to other biological agents ruled out; Z86.711 Personal history of pulmonary embolism; Z79.01 Long term (current) use of anticoagulants
CPT/HCPCS: 0241U; 36415; 71046; 80053; 84484; 85025; 93005; 99284

== ENCOUNTER → 2024-02-20 09:45 | Outpatient (BNV) | payer OTHER, SELFPAY | PROVIDERS: Emergency Provider Emergency Medicine; PCP Internal Medicine; Visit Provider Internal Medicine | DX: R07.9 Chest pain, unspecified (principal) | CPT/HCPCS: 93010 ==

== ENCOUNTER → 2024-02-20 10:00 | Outpatient (BNV) | payer OTHER, SELFPAY | PROVIDERS: Emergency Provider Emergency Medicine; PCP Internal Medicine; Visit Provider Specialist | DX: R07.9 Chest pain, unspecified (principal) | CPT/HCPCS: 71046 ==

== ENCOUNTER 2024-06-24 06:46 | Emergency (ER) | payer OTHER, SELFPAY ==
--- NOTE | ~2024-06-24 | CT_ITS ---
CLINICAL HISTORY: chest pain hemoptysis CT angiography chest with contrast. 3D Postprocessing. Comparison: None Findings: The heart is normal size. RV/LV ratio is normal. Unremarkable thoracic aorta and great vessels. No aneurysm. No large central or proximal segmental pulmonary embolism. Distal branch evaluation limited by motion artifact. The visualized thyroid and mediastinum are unremarkable. The lungs are clear. No focal consolidation or effusion. The visualized upper abdomen is unremarkable. Mild superior endplate compression deformity at T8, age-indeterminate. IMPRESSION: No heart strain or evidence of large central or proximal segmental pulmonary embolism. Mild superior endplate compression deformity of T8, age-indeterminate. This document has been electronically signed by: Anselmo Sharp MD on 06/24/2024 09:07:21
[2024-06-24 06:58] VITALS: BP 131/74; PULSE 70; RESP 20; TEMP 36.7; O2SAT 97; BMI 42.8
[2024-06-24 07:14] LABS: MANUAL DIFF FLAG NO
[2024-06-24 07:16] LABS: Basophils Percent Auto 0.7 % (0-2); Eosinophils Absolute Auto 0.2 X10*3/uL (0.0-0.4); Eosinophils Percent Auto 2.6 % (0-4); Hematocrit 38.6 % (42.0-52.0); Hemoglobin 12.8 g/dl (14.0-18.0); Imm Gran Abs Auto 0.03 X10*3/uL (0.00-0.03); Imm Gran Pct Auto 0.5 % (0.0-0.4); Lymphocytes Absolute Auto 1.7 X10*3/uL (1.2-4.9); Lymphocytes Percent Auto 29.2 % (20-40); Mean Corpuscular HGB Conc 33.2 g/dl (31.0-36.0); Mean Corpuscular Volume 87.3 fL (80.0-98.0); Mean Platelet Volume 9.2 fL (9.4-12.4); Monocytes Absolute Auto 0.5 X10*3/uL (0.1-1.2); Neutrophils Absolute Auto 3.4 x10*3/uL (2.0-8.3); Platelet Count 200 X10*3/uL (160-400); Red Blood Count 4.42 X10*6/uL (4.60-5.80); Red Cell Distribution Width 13.1 % (11.0-16.0); White Blood Count 5.8 X10*3/uL (4.8-10.8)
--- NOTE | 2024-06-24 07:22 | ED_ITS ---
HPI - Chest Pain General Chief Complaint: Abdominal Pain Stated Complaint: rib pain Time Seen by Provider: 06/24/24 07:16 Related Data Previous Rx's ?Medication ?Instructions ?Recorded omeprazole magnesium 20 mg 20 mg PO DAILY #14 tabs 05/10/20 tablet,delayed release (Prilosec OTC) tramadol 50 mg tablet 50 mg PO Q6H PRN pain #20 tabs 01/06/21 famotidine 20 mg tablet (Pepcid) 20 mg PO DAILY #30 tabs 06/19/21 cyclobenzaprine 10 mg tablet 10 mg PO TID PRN muscle spasm #14 08/06/21 tabs lidocaine 4 % topical patch 1 patch topical DAILY PRN pain #10 08/06/21 ea cephalexin 500 mg capsule 500 mg PO QID 7 days #28 caps 09/15/22 doxycycline hyclate 100 mg capsule 100 mg PO BID #14 caps 09/15/22 loperamide 2 mg capsule (Imodium 2 mg PO Q6H PRN loose stool #14 06/14/23 A-D) caps ondansetron 4 mg disintegrating 4 mg PO DAILY PRN nausea and 06/14/23 tablet vomiting 5 days #14 tabs clindamycin HCl 300 mg capsule 300 mg PO Q6H #40 caps 07/11/23 mupirocin 2 % topical ointment 1 appl topical BID #15 grams 07/11/23 Allergies Allergy/AdvReac Type Severity Reaction Status Date / Time Penicillins [PENICILLINS] Allergy Unknown Rash Verified 06/24/24 07:00 [facility] Past Medical History Medical History GERD (gastroesophageal reflux disease) Chronic anticoagulation Pulmonary embolism Substance abuse HTN (hypertension) Kidney stones History of blood clots Social History Social History Alcohol intake: former Patient Tobacco Use Status: Former Tobacco user Substance Use Type: Former Substance User and Heroin Physical Exam 2 Vital Signs: Vital Signs: Last Vital Signs Temp 98.5 F 06/24/24 10:44 Pulse 61 06/24/24 10:44 Resp 14 06/24/24 10:44 BP 101/65 06/24/24 10:44 Pulse Ox 98 06/24/24 10:44 O2 Del Method Room Air 06/24/24 10:44 BMI result Body Mass Index 42.8 Medications Administered Discontinued Medications Generic Name Dose Route Start Last Admin Trade Name Maria Antonia PRN Reason Stop Dose Admin Iohexol 100 ml 06/24/24 08:03 06/24/24 08:03 Iohexol 350 Mg/Ml 100 Ml Infus..Btl IV 06/24/24 08:04 65 ml ONCE ONE Administration Medical Decision Making Medical Decision Making [facility] Narrative: 48-year-old male with cirrhosis, 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 He pointed to the right lower anterior axillary line costal margin where he had some pain no trauma to the area there was no rib tenderness bruising crepitus. Chest CT exclude central PE he has got normal vitals no oxygen requirement no tachycardia. Bedside point of care ultrasound excludes DVT and there is no clinical signs of DVT at this point he may have bronchitis and given the Xarelto had a look slight increase of bronchitic small volume hemoptysis. Strict return precautions for large volume hemoptysis or severe chest pain patient was instructed continue all of his meds including the Xarelto he understands this. EMERGENCY ULTRASOUND INTERPRETATION-Limited Point of Care Venous (DVT) [This study was ordered, performed, and interpreted by myself. The study reveals: Impression: NO EVIDENCE OF DVT. I RECOMMENDED TO THE PATIENT REPEAT ULTRASOUND IN ONE WEEK IF SYMPTOMS PERSIST.] [Indication: Laterality: Bilateral Common Femoral: -Full Compressibility: YES -Clot Seen: NO Superficial Femoral: -Full Compressibility: YES -Clot Seen: NO Popliteal: -Full Compressibility: YES -Clot Seen: NO Other: Performed by: Abdirashid Hitchcock MD CPT: 00232] Lab Data [facility] Lab Attestation statement: I reviewed the patient's lab results. 06/24/24 07:11 06/24/24 07:11 Labs: Lab Results 06/24/24 Range/Units 07:11 WBC 5.8 (4.8-10.8) X10*3/uL RBC 4.42 L (4.60-5.80) X10*6/uL Hgb 12.8 L (14.0-18.0) g/dl Hct 38.6 L (42.0-52.0) % MCV 87.3 (80.0-98.0) fL MCH 29.0 (27.0-33.0) pg MCHC 33.2 (31.0-36.0) g/dl RDW 13.1 (11.0-16.0) % Plt Count 200 (160-400) X10*3/uL MPV 9.2 L (9.4-12.4) fL Immature Gran % (Auto) 0.5 H (0.0-0.4) % Neut % (Auto) 58.0 (45-73) % Lymph % (Auto) 29.2 (20-40) % [place] % (Auto) 9.0 (2-11) % Eos % (Auto) 2.6 (0-4) % Baso % (Auto) 0.7 (0-2) % Lymph # (Auto) 1.7 (1.2-4.9) X10*3/uL [place] # (Auto) 0.5 (0.1-1.2) X10*3/uL Eos # (Auto) 0.2 (0.0-0.4) X10*3/uL Baso # (Auto) 0.0 (0.0-0.2) X10*3/uL Abs Immat Gran (auto) 0.03 (0.00-0.03) X10*3/uL Absolute Neuts (auto) 3.4 (2.0-8.3) x10*3/uL Absolute Nucleated RBC 0.000 (0.0-0.012) X10*3/uL Nucleated RBC % (auto) 0.0 (0.0-0.2) /100WBC Sodium 140 (135-145) mmol/L Potassium 4.1 (3.3-5.1) mmol/L Chloride 106 (96-108) mmol/L Carbon Dioxide 25 (22-29) mmol/L Anion Gap 13 (12-20) BUN 16 (9-16) mg/dL Creatinine 0.89 (0.5-1.4) mg/dL Estim Creat Clear Calc 123.9 Estimated GFR > 60 Random Glucose 130 H (60-115) mg/dL Calcium 9.2 (8.4-10.2) mg/dL Total Bilirubin 0.3 (0.0-1.0) mg/dL Direct Bilirubin 0.1 (0.0-0.5) mg/dL AST 36 (5-37) U/L ALT 42 H (0-40) U/L Alkaline Phosphatase 84 (39-117) U/L Total Protein 7.5 (6.5-8.0) g/dL Albumin 4.0 (3.5-5.0) g/dL Independent Interpretation I performed an independent interpretation of an: EKG (SINUS RHYTHM RATE 69 QTC 415. NO RV STRAIN. SINGLE PAC. NO ISCHEMIC CHANGES) and Ultrasound (SEE PROCEDURE NOTE ABOVE NEGATIVE DVT BILATERAL) Radiology Impression Discussion of test interpretation with radiology: I have reviewed the radiologist's reading. Discharge Plan Discharge Clinical Impression: Hemoptysis Patient Disposition: Home, Self-Care Instructions: Coughing Up Blood (Hemoptysis) (ED) Additional Instructions: _ DISCHARGE DIAGNOSES: Coughing up blood possibly viral bronchitis or adverse effect secondary to blood thinning medicine HISTORY OF PRESENTATION: ?Small volume coughing up blood earlier this week EMERGENCY DEPARTMENT COURSE,TESTS, TREATMENTS: While in the ED today you had a CT which excluded any acute blood clot in the lung. You had an ultrasound of both legs with no blood clots DISCHARGE MEDICATIONS: ?[We have made no changes to your regular medication regimen] FOLLOW-UP: ?Call your primary or general physician soon as possible to discuss your symptoms, your ED visit and to discuss follow up plans Call your hematology blood doctor that prescribes her blood thinner to make an appointment for follow up INSTRUCTIONS ?& RETURN PRECAUTIONS: If any symptoms change first call your primary physician, if it is after-hours your primary doctors office should have a provider tombstone erector you can speak with. If the symptoms are severe or very concerning to you then call 911 or return to the ED. If you have any increase in coughing of blood to higher volumes of blood such as 2-3 oz or enough blood that your choking or swallowing what appears to be large amounts of blood return immediately back to the emergency department Abdirashid Hitchcock MD Emergency Physician [facility] Prescriptions: No Action omeprazole magnesium [Prilosec OTC] 20 mg tablet,delayed release (DR/EC) 20 mg PO DAILY Qty: 14 0RF famotidine [Pepcid] 20 mg tablet 20 mg PO DAILY Qty: 30 0RF cyclobenzaprine 10 mg tablet 10 mg PO TID PRN (Reason: muscle spasm) Qty: 14 0RF lidocaine 4 % adhesive patch,medicated 1 patch topical DAILY PRN (Reason: pain) Qty: 10 0RF Rx Instructions: may leave on for up to 12 hrs tramadol 50 mg tablet 50 mg PO Q6H PRN (Reason: pain) Qty: 20 0RF doxycycline hyclate 100 mg capsule 100 mg PO BID Qty: 14 0RF cephalexin 500 mg capsule 500 mg PO QID 7 Days Qty: 28 0RF ondansetron 4 mg tablet,disintegrating 4 mg PO DAILY PRN (Reason: nausea and vomiting) 5 Days Qty: 14 0RF loperamide [Imodium A-D] 2 mg capsule 2 mg PO Q6H PRN (Reason: loose stool) Qty: 14 0RF Rx Instructions: 4 mg initially, followed by 2 mg after each loose stool; maximum: 16 mg/day. Limit use to =48 hours clindamycin HCl 300 mg capsule 300 mg PO Q6H Qty: 40 0RF mupirocin 2 % ointment 1 appl topical BID Qty: 15 0RF Interventions: ED Discharge Assessment Last Done: 06/24/24 10:44 Discharge Date/Time: 06/24/24 10:44 Print Language: Bulgarian
[2024-06-24 07:32] LABS: Alanine Aminotransferase 42 U/L (0-40); Alkaline Phosphatase 84 U/L (39-117); Anion Gap 13 (12-20); Aspartate Amino Transferase 36 U/L (5-37); Bilirubin Direct 0.1 mg/dL (0.0-0.5); Bilirubin Total 0.3 mg/dL (0.0-1.0); Blood Urea Nitrogen 16 mg/dL (9-16); Calcium 9.2 mg/dL (8.4-10.2); Carbon Dioxide 25 mmol/L (22-29); Chloride 106 mmol/L (96-108); Creatinine Clr Calc Pharmacy 123.9; Estimated Glomerular Filt Rate > 60; Glucose Random 130 mg/dL (60-115); Potassium 4.1 mmol/L (3.3-5.1); Sodium 140 mmol/L (135-145); Total Protein 7.5 g/dL (6.5-8.0)
[2024-06-24] MEDS: iohexoL 350 MG/ML 100 ML INFUS..BTL IV (08:03)
[2024-06-24 10:22] VITALS: BP 101/65; PULSE 61; RESP 14; TEMP 36.9; O2SAT 98
[2024-06-24 10:44] VITALS: BP 101/65; PULSE 61; RESP 14; TEMP 36.9; O2SAT 98
== END 2024-06-24 10:44 | disposition home or self-care (01) ==
PROVIDERS: Emergency Provider Emergency Medicine; PCP Internal Medicine
DX: R04.2 Hemoptysis (principal); R07.89 Other chest pain; R10.2 Pelvic and perineal pain; Z79.899 Other long term (current) drug therapy; Z87.891 Personal history of nicotine dependence
CPT/HCPCS: 36415; 71275; 80053; 82248; 85025; 99283; 99284; Q9967

== ENCOUNTER → 2024-06-24 07:20 | Outpatient (BNV) | payer OTHER, SELFPAY | PROVIDERS: Emergency Provider Emergency Medicine; PCP Internal Medicine; Visit Provider Radiology Vascular & Interventional Radiology | DX: R07.9 Chest pain, unspecified (principal); R04.2 Hemoptysis | CPT/HCPCS: 71275 ==

== ENCOUNTER 2024-07-01 15:40 | Emergency (ER) | payer OTHER, SELFPAY ==
[2024-07-01 15:51] VITALS: BP 127/56; PULSE 67; RESP 18; TEMP 36.6; O2SAT 98; BMI 41.9
--- NOTE | 2024-07-01 15:54 | ED_ITS ---
HPI - Skin/Abscess/Foreign Bdy General Chief complaint: General Medical Stated complaint: tick bite Time Seen by Provider: 07/01/24 16:01 Source: patient Mode of arrival: ambulatory Limitations: no limitations History of Present Illness ED Provider: Emelia Hall APRN HPI narrative: 48 yo with PMH of HTN presents to the ER with tick bite. Patient report he found a tick on his left groin. Unsure how long it was there of if it was engorged. 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 Related Data Previous Rx's ?Medication ?Instructions ?Recorded omeprazole magnesium 20 mg 20 mg PO DAILY #14 tabs 05/10/20 tablet,delayed release (Prilosec OTC) tramadol 50 mg tablet 50 mg PO Q6H PRN pain #20 tabs 01/06/21 famotidine 20 mg tablet (Pepcid) 20 mg PO DAILY #30 tabs 06/19/21 cyclobenzaprine 10 mg tablet 10 mg PO TID PRN muscle spasm #14 08/06/21 tabs lidocaine 4 % topical patch 1 patch topical DAILY PRN pain #10 08/06/21 ea cephalexin 500 mg capsule 500 mg PO QID 7 days #28 caps 09/15/22 doxycycline hyclate 100 mg capsule 100 mg PO BID #14 caps 09/15/22 loperamide 2 mg capsule (Imodium 2 mg PO Q6H PRN loose stool #14 06/14/23 A-D) caps ondansetron 4 mg disintegrating 4 mg PO DAILY PRN nausea and 06/14/23 tablet vomiting 5 days #14 tabs clindamycin HCl 300 mg capsule 300 mg PO Q6H #40 caps 07/11/23 mupirocin 2 % topical ointment 1 appl topical BID #15 grams 07/11/23 Allergies Allergy/AdvReac Type Severity Reaction Status Date / Time Penicillins [PENICILLINS] Allergy Unknown Rash Verified 07/01/24 15:52 Review of Systems 2 Review of Systems: Yes all other systems are reviewed and are negative Constitutional: Constitutional: Reports no additional constitutional complaints, Denies body ache(s), Denies chills, Denies fever(s), Denies headache(s) and Denies weakness Eyes: Eyes: Reports no additional eye complaints and Denies change in vision ENT: Reports system reviewed and no additional complaints, except as documented, Denies dizziness, Denies headache(s), Denies nasal congestion, Denies nasal discharge and Denies neck pain Cardiovascular: Cardiovascular: Reports no additional cardiovascular complaints, Denies chest pain, Denies leg edema and Denies dyspnea Respiratory: Respiratory: Reports no additional respiratory complaints, Denies cough and Denies dyspnea Gastrointestinal: Gastrointestinal: Reports no additional gastrointestinal complaints, Denies abdominal pain, Denies diarrhea, Denies nausea and Denies vomiting Genitourinary: Genitourinary: Denies urinary incontinence Musculoskeletal: Musculoskeletal: Reports no additional musculoskeletal complaints, Denies back pain, Denies arthralgias, Denies joint swelling, Denies neck pain, Denies numbness and Denies tingling Integumentary/Breasts: Skin/Breast: Reports system reviewed and no additional complaints, except as docu and Denies rash Neurologic: Reports system reviewed and no additional complaints, except as documented, Denies Abnormal speech present, Denies dizziness, Denies headache(s), Denies numbness, Denies tingling and Denies weakness PMF Past Medical History Attestation statement: The following information was validated with the patient. Source: old records reviewed and nursing notes reviewed Medical History GERD (gastroesophageal reflux disease) Chronic anticoagulation Pulmonary embolism Substance abuse HTN (hypertension) Kidney stones History of blood clots Social History Social History Alcohol intake: former Patient Tobacco Use Status: Former Tobacco user Substance Use Type: Former Substance User and Heroin Advance Directives: No Advance Directives Information Provided: No Physical Exam 2 Vital Signs: Vital Signs: Last Vital Signs Temp 97.9 F 07/01/24 15:51 Pulse 67 07/01/24 15:51 Resp 18 07/01/24 15:51 BP 127/56 L 07/01/24 15:51 Pulse Ox 98 07/01/24 15:51 O2 Del Method Room Air 07/01/24 15:51 BMI result Body Mass Index 41.9 Const: General: cooperative, healthy appearing, comfortable and no acute distress Orientation/consciousness: patient oriented x3 Limitations: no limitations HEENT: Head: Yes normal to inspection Ears: hearing grossly normal bilaterally General nose exam: Normal external nose present Face and sinus: Yes normal facial exam Mouth: Normal oral and palatal mucosa present Throat: Yes posterior oropharynx normal Eyes: General: appearance normal, both eyes and all related structures P upils: Equal, round and reactive pupils present Neck: Neck: Yes normal visual inspection Chest: Chest palpation & inspection: normal inspection of the chest Resp: Effort & Inspection: normal respiratory effort Auscultation: clear to auscultation bilaterally Cardio: Rate: regular rate Rhythm: regular rhythm Peripheral pulses: P eripheral pulses 2+ throughout GI: Inspection: Yes normal to inspection Palpation (GI): Soft to palpation and nontender Auscultation: normal bowel sounds Abdomen image: 1. small area of redness with central puncture site Back/Spine/Pelvis: Thoracic/Lumbar Spine: thoracic and lumbar spine normal to inspection Skin: General skin exam: no rashes or lesions noted Neuro: General: patient oriented x3, no focal motor deficits and normal sensation to monofilament Cranial nerves: Yes Equal, round and reactive pupils present Cognition (Neuro): normal cognition Speech: No Abnormal speech present Gait exam (Neuro): Normal gait present Motor exam (neuro): 5/5 motor strength present throughout Medical Decision Making Medical Decision Making MDM Narrative: 48 yo with PMH of HTN presents to the ER with tick bite. Patient report he found a tick on his left groin. Unsure how long it was there of if it was engorged. 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 small area of redness with central puncture site to left groin No retained tick. Given 200mg PPTX doxycycline Reviewed s/s tick borne illnesses and when to seek additional care Differential Diagnosis Differential Diagnoses: The differential diagnosis associated with the presentation includes tick bite Admission/Observation Consideration of admission/observation: Escalation of care including admission/observation considered Prescription Management I considered prescription management with: Antibiotic Discharge Plan Discharge Clinical Impression: Tick bite Patient Disposition: Home, Self-Care Instructions: Tick Bite (ED) Additional Instructions: Return for fever, body aches, headache, skin rash as we would test for tick borne illnesses at that time You received a one time dose of antibiotics while you were in the ER Prescriptions: No Action omeprazole magnesium [Prilosec OTC] 20 mg tablet,delayed release (DR/EC) 20 mg PO DAILY Qty: 14 0RF famotidine [Pepcid] 20 mg tablet 20 mg PO DAILY Qty: 30 0RF cyclobenzaprine 10 mg tablet 10 mg PO TID PRN (Reason: muscle spasm) Qty: 14 0RF lidocaine 4 % adhesive patch,medicated 1 patch topical DAILY PRN (Reason: pain) Qty: 10 0RF Rx Instructions: may leave on for up to 12 hrs tramadol 50 mg tablet 50 mg PO Q6H PRN (Reason: pain) Qty: 20 0RF doxycycline hyclate 100 mg capsule 100 mg PO BID Qty: 14 0RF cephalexin 500 mg capsule 500 mg PO QID 7 Days Qty: 28 0RF ondansetron 4 mg tablet,disintegrating 4 mg PO DAILY PRN (Reason: nausea and vomiting) 5 Days Qty: 14 0RF loperamide [Imodium A-D] 2 mg capsule 2 mg PO Q6H PRN (Reason: loose stool) Qty: 14 0RF Rx Instructions: 4 mg initially, followed by 2 mg after each loose stool; maximum: 16 mg/day. Limit use to =48 hours clindamycin HCl 300 mg capsule 300 mg PO Q6H Qty: 40 0RF mupirocin 2 % ointment 1 appl topical BID Qty: 15 0RF Referrals: Dian Chu [Primary Care Provider] - 1 week Print Language: Colombian
[2024-07-01] MEDS: Doxycycline Monohydrate 100 MG CAPSULE 200 MG PO (16:05)
[2024-07-01 16:11] VITALS: BP 127/56; PULSE 67; RESP 18; TEMP 36.6; O2SAT 98
== END 2024-07-01 16:11 | disposition home or self-care (01) ==
PROVIDERS: Emergency Provider Emergency Medicine; PCP Internal Medicine
DX: S30.861A Insect bite (nonvenomous) of abdominal wall, initial encounter (principal); W57.XXXA Bitten or stung by nonvenomous insect and other nonvenomous arthropods, initial encounter; Y93.9 Activity, unspecified; Y92.9 Unspecified place or not applicable; Y99.9 Unspecified external cause status
CPT/HCPCS: 99282; 99283

== ENCOUNTER 2025-01-11 09:41 | Emergency (ER) | payer OTHER, SELFPAY ==
--- OUTSIDE RECORDS SUMMARY | 2022-07-17 03:06 | XMS_ITS | Continuity of Care Document ---
Author Organization [facility] Address [address] [place] [address] Phone Care Team Providers Care Tribunal Member Name Role Phone Melquaides SORENSEN FACS RVT Magda ARCHIBALD Unavailable Unavailable [...] Providers Copied on Encounter [facility], [address], [place], [id number], [place] tel:[phone] [facility] No Information 3 Melquiades SORENSEN FACS RVT RPADELA Virk. [address] [address], [place], [address], [place]. tel:[phone] Referring Provider: Dian Martínez ra, [address] [place] [address], [address]. tel:[phone] Office/Outpt E&M Established 15 Mins [facility], [address], [place], [id number], tel:[phone] [facility] - [facility] Venous insufficiency (chronic) (peripheral) 3 Melquiades SORENSEN FACS RVT DRAGAN Virk. [address], [place], [address], . [phone] Referring Provider: Dian Martínez ra, [address] [place], [address]. tel:[phone] Family History Family Member Type Diagnosis Age At Onset No Information Payers Payer name Insurance type Covered green party ID Authorastrid dior(s) [facility] [id number] Social History Type Description Quantity Date Captured [...]
[2025-01-11 09:50] VITALS: BP 128/82; PULSE 98; RESP 18; TEMP 36.8; O2SAT 95; BMI 41.4
--- NOTE | 2025-01-11 10:01 | ED.GENADULT ---
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 Patient states he woke up this morning and noticed pain of the R 1st MTP. Patient describes the pain as a dull ache, with burning of the joint, with sensation that he needs to crack the toe (explaining like he needs to pop his knuckles), and has pain when his slippers rub against the area. Patient reports he took 2 Tylenol this morning with minimal relief. Patient denies recent injury, or skin puncture. Denies fevers, chills, chest pain, SOB, abdominal pain, nausea, vomiting, headaches, visual changes MD complaint: R foot pain Related Data Previous Rx's ?Medication ?Instructions ?Recorded omeprazole magnesium 20 mg 20 mg PO DAILY #14 tabs 05/10/20 tablet,delayed release (Prilosec OTC) tramadol 50 mg tablet 50 mg PO Q6H PRN pain #20 tabs 01/06/21 famotidine 20 mg tablet (Pepcid) 20 mg PO DAILY #30 tabs 06/19/21 cyclobenzaprine 10 mg tablet 10 mg PO TID PRN muscle spasm #14 08/06/21 tabs lidocaine 4 % topical patch 1 patch topical DAILY PRN pain #10 08/06/21 ea cephalexin 500 mg capsule 500 mg PO QID 7 days #28 caps 09/15/22 doxycycline hyclate 100 mg capsule 100 mg PO BID #14 caps 09/15/22 loperamide 2 mg capsule (Imodium 2 mg PO Q6H PRN loose stool #14 06/14/23 A-D) caps ondansetron 4 mg disintegrating 4 mg PO DAILY PRN nausea and 06/14/23 tablet vomiting 5 days #14 tabs clindamycin HCl 300 mg capsule 300 mg PO Q6H #40 caps 07/11/23 mupirocin 2 % topical ointment 1 appl topical BID #15 grams 07/11/23 prednisone 20 mg tablet 20 mg PO BID 4 days #8 tabs 01/11/25 Allergies Allergy/AdvReac Type Severity Reaction Status Date / Time Penicillins (PENICILLINS) Allergy Unknown Rash Verified 01/11/25 09:54 Review of Systems Review of Systems: Yes all other systems are reviewed and are negative [facility] Past Medical History Attestation statement: The following information was validated with the patient. Source: old records reviewed and nursing notes reviewed Medical History GERD (gastroesophageal reflux disease) Chronic anticoagulation Pulmonary embolism Substance abuse HTN (hypertension) Kidney stones History of blood clots Social History Social History Alcohol intake: former Patient Tobacco Use Status: Former Tobacco user Use of substances other than those prescribed or required for medical reasons: No Substance Use Type: Former Substance User and Heroin Advance Directives: No Advance Directives Information Provided: Yes Do you have a plan to hurt others: No Plan Physical Exam ED Vital Signs: Vital Signs - 24 hr 01/11/25 09:50 Temperature 98.2 F Pulse Rate 98 Respiratory Rate 18 Blood Pressure 128/82 Pulse Oximetry 95 Oxygen Delivery Method Room Air BMI result Body Mass Index 41.4 GENERAL APPEARANCE: ?AxOx4, generally well-appearing, non-toxic, no acute distress. HEENT: ?NC, AT. MMM. EOMI, clear conjunctiva, oropharynx clear. NECK: ?Supple without lymphadenopathy.? No stiffness or restricted ROM. HEART:? Normal rate and regular rhythm, normal S1/S2, no m/r/g LUNGS:? CTAB, moving air well. No crackles or wheezes are heard. ABDOMEN: ?Soft, nontender, nondistended with good bowel sounds heard. BACK: No CVAT, no obvious deformity. EXTREMITIES: ?Without cyanosis, clubbing or edema. R foot without abrasions, lesions, rash, no puncture wounds, no broken skin, 1st MTP tender to palpation, without warmth, very mild erythema, full ROM, DP pulse 2+, the limb is neurovascularly intact, and well-perfused, SILT NEUROLOGICAL: ?Grossly nonfocal. Alert and oriented, moving all 4 extremities. Observed to ambulate with normal gait. Skin: ?Warm and dry without any rash. 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 Patient states he woke up this morning and noticed pain of the R 1st MTP. Patient describes the pain as a dull ache, with burning of the joint, with sensation that he needs to crack the toe (explaining like he needs to pop his knuckles), and has pain when his slippers rub against the area. No injury/fall/trauma to the area. VS on initial observation-BP 128/82, pulse rate of 98, respiratory rate of 18, afebrile with oral temp of 98.2?, O2 sat 95% on room air. On physical exam patient is very well-appearing, nontoxic, in no acute distress, lungs clear to auscultation bilaterally, cardiac exam reveals normal rate and rhythm without murmurs/rubs/gallops, abdomen is soft, nondistended, no rigidity, nontender, lower extremities without edema, no calf tenderness, right foot with tenderness to the 1st MTP, very mild erythema, no warmth, full ROM, SILT, the limb is neurovascularly intact and well perfused, compartments soft. Patient patient does have a history of IVDU 24 years ago however patient is adamant that he has been on methadone therapy, and has not used at all in 24 years. The right foot is without any lesions, punctate bill, areas of broken skin. The right MTP is tender to palpation, patient experiencing pain when the slippers and shoes rub against the area. His symptoms are most consistent with gout flare. - less likely septic arthritis, osteomyelitis, cellulitis. Patient being medicated in the department with 30mg IM Toradol, 40 mg prednisone for treatment. Patient will be discharged with 4 days 40 mg prednisone as he received his 1st dose in the ED today, with instructions to take 400 mg ibuprofen every 6 hours for treatment. Patient is established with his PCP, I instructed patient to follow up with them to ensure resolution of his symptoms, and further management of gout. Patient well enough to go home today for self-care, patient is in agreement with the plan. Differential Diagnosis Differential Diagnoses: The differential diagnosis associated with the presentation includes Osteomyelitis Septic arthritis Cellulitis Gout Admission/Observation Consideration of admission/observation: Escalation of care including admission/observation considered Prescription Management I considered prescription management with: Antibiotic (Patient without areas of skin breakdown, no punctate lesions, no warmth, afebrile, no indication for antibiotics at this time) Chronic Conditions Patient?s care impacted by: Hypertension and Other (Pulmonary embolism on Xarelto, HTN, IUD on methadone (in remission for 24 years), hepatitis s/p treatment) Social Determinants Patient?s care significantly limited by Social Determinants of Health including: Other Social Determinant of Health Discharge Plan Discharge Clinical Impression: Gout Patient Disposition: Home, Self-Care Instructions: Low Purine Diet (ED), Gout (ED) Additional Instructions: You were evaluated in the emergency department for right foot pain. Your symptoms are most consistent with gout. You were medicated in the department with 30 mg IM Toradol, 40 mg prednisone. Treatment for gout includes NSAIDs, and steroids for anti inflammation. You are being prescribed a 4 day course of 40 mg prednisone. In addition to the prednisone, please take 400 mg of ibuprofen every 6 hours for the next 5 days. Please follow up with your primary care doctor as you may need to be put on a medication to help control gout. Please return to the emergency department if you experience fevers over 100.4?, worsening pain in your right foot, inability to bear weight on the right foot, or any new/worsening/concerning symptoms. Prescriptions: New prednisone 20 mg tablet 20 mg PO BID 4 Days Qty: 8 0RF No Action omeprazole magnesium [Prilosec OTC] 20 mg tablet,delayed release (DR/EC) 20 mg PO DAILY Qty: 14 0RF famotidine [Pepcid] 20 mg tablet 20 mg PO DAILY Qty: 30 0RF cyclobenzaprine 10 mg tablet 10 mg PO TID PRN (Reason: muscle spasm) Qty: 14 0RF lidocaine 4 % adhesive patch,medicated 1 patch topical DAILY PRN (Reason: pain) Qty: 10 0RF Rx Instructions: may leave on for up to 12 hrs tramadol 50 mg tablet 50 mg PO Q6H PRN (Reason: pain) Qty: 20 0RF doxycycline hyclate 100 mg capsule 100 mg PO BID Qty: 14 0RF cephalexin 500 mg capsule 500 mg PO QID 7 Days Qty: 28 0RF ondansetron 4 mg tablet,disintegrating 4 mg PO DAILY PRN (Reason: nausea and vomiting) 5 Days Qty: 14 0RF loperamide [Imodium A-D] 2 mg capsule 2 mg PO Q6H PRN (Reason: loose stool) Qty: 14 0RF Rx Instructions: 4 mg initially, followed by 2 mg after each loose stool; maximum: 16 mg/day. Limit use to =48 hours clindamycin HCl 300 mg capsule 300 mg PO Q6H Qty: 40 0RF mupirocin 2 % ointment 1 appl topical BID Qty: 15 0RF Print Language: Persian
--- OUTSIDE RECORDS SUMMARY | 2025-01-11 10:11 | XMS_ITS | Patient Health Record ---
Author Organization [facility] Address [address] [place] [address] Care Team Providers Care Credentialing Analyst Name Role Phone Mason Ilya Unavailable [phone] Reason For Referral No Information Plan Of Treatment No Information
[2025-01-11 10:33] VITALS: BP 128/82; PULSE 98; RESP 18; TEMP 36.8; O2SAT 95
== END 2025-01-11 10:35 | disposition home or self-care (01) ==
PROVIDERS: Emergency Provider Emergency Medicine; PCP Internal Medicine
DX: M10.9 Gout, unspecified (principal); I10 Essential (primary) hypertension; F11.20 Opioid dependence, uncomplicated; Z86.711 Personal history of pulmonary embolism; Z79.01 Long term (current) use of anticoagulants
CPT/HCPCS: 96372; 99284; J1885

== ENCOUNTER 2025-01-13 07:31 | Emergency (ER) | payer OTHER, SELFPAY ==
--- OUTSIDE RECORDS SUMMARY | 2022-07-17 03:06 | XMS_ITS | Continuity of Care Document ---
Author Organization [facility] Address [address] [place] [address] Phone Care Team Providers Care Wire Frame Dipper Name Role Phone Melquiades SORENSEN FACS RVT Magda ARCHIBALD Unavailable Unavailable Allergies, Adverse Reactions, Alerts Substance Reaction Status Criticality PENICILLIN Active No Information Medications Medication Instructions Dosage Effective Dates (start - stop) Status Comments Claritin Liqui-Gel 10 mg capsule - Active lisinopril 40 mg tablet - Ac tive hydrochlorothiazide 25 mg tablet - Active amlodipine 5 mg tablet - Act christine Xarelto 20 mg tablet - Activ e NASACORT (unknown strength) Not Available - Active METHADONE HCL (unknown strength) Not Available - Active Procedures Procedure Date Office/Outpt E&M Established 15 Mins Jul Advance Directives Directive Yes / No Effective Date File Name No Information Encounters Encounter Description Practice Location Reason(s) For Visit Diagnoses Date Provider Providers Copied on Encounter [facility], [address], [place], [id number], [place] tel:[phone] [facility] No Information 3 Melquiades SORENSEN FACS RVT RPADELA Virk. [address], [facility] [address], [place], [address], [place]. tel:[phone] Referring Provider: Dian Martínez ra, [address] [place] [address], [address]. tel:[phone] Office/Outpt E&M Established 15 Mins [facility], [address], [place], [id number], tel:[phone] [facility] - [facility] Venous insufficiency (chronic) (peripheral) 3 Melquiades SORENSEN FACS RVT DRAGAN Virk. [address], [place], [address], . [phone] Referring Provider: Dian Martínez ra, [address] [place], [address]. tel:[phone] Family History Family Member Type Diagnosis Age At Onset No Information Payers Payer name Insurance type Covered green party ID Authorastrid dior(s) [facility] [id number] Social History Type Description Quantity Date Captured Comments Sex Male Smoking Status No Information Chief Complaint And Reason For Visit No Information Reason For Referral Reason For Referral No Information Plan Of Treatment Date Type Action Status Goal Tobacco cessation counseling completed History Of Present Illness Encounter Date Complaint History Of Prese nt Illness No Information Functional Status Date Functional Assessmen t No Information Instructions Date Instruction Additional Infor mation No Information Assessments Type Assessment Date No Information Patient Care Teams Name Effective Dates (start - stop) Status Members No Information
--- OUTSIDE RECORDS SUMMARY | 2025-01-12 23:59 | XMS_ITS | Continuity of Care Document ---
Author Organization [facility] Address [address] [place] [address]- Care Team Providers Care Hand Spring Repairer Name Role Phone Vlad SORENSEN, Dian Primary Care Physician ( [phone] [id number] Date(s): 11/22/24 - 01/12/25 [facility] [address], [place] [address] Attending Physician: Rolan Prado MD Referring Physician: Selam Verma MD Encounter Type: Pre Office Visit Allergies, Adverse Reactions, Alerts Substance Criticality Severity Reaction Reaction Severity Status penicillins Unable to assess criticality Persistent Moderate Rash Active Immunizations Given and Recorded Vaccine Date Status Refusal Reason SARS-CoV-2(COVID-19)mRNA-LNP vac([id number]) 04/17/24 Given SARS-CoV-2(COVID-19)mRNA-LNP vac([id number]) 03/17/23 Given tetanus/diphtheria/pertussis, acel(Tdap) 07/11/23 Recorded tetanus/diphtheria/pertussis, acel(Tdap) 01/27/21 Recorded tetanus/diphtheria/pertussis, acel(Tdap) 06/21/12 Given tetanus/diphtheria/pertussis, acel(Tdap) 07/07/08 Given influenza virus vaccine, inactivated 10/15/22 Randy rded influenza virus vaccine, inactivated 10/31/21 Randy rded influenza virus vaccine, inactivated 10/13/20 Randy rded influenza virus vaccine, inactivated 1 10/21/17 Re corded influenza virus vaccine, inactivated 2 10/21/16 Re corded influenza virus vaccine, inactivated 3 03/10/16 Gi brent influenza virus vaccine, inactivated 11/14/15 Randy rded influenza virus vaccine, inactivated 11/02/14 Randy rded influenza virus vaccine, inactivated 4 10/16/14 Re corded [id number] 12y+ bivalent booster vax 01/07/22 Recorded SARS-CoV-2 (COVID-19) mRNA BNT-162b2 vac 12/19/20 Recorded SARS-CoV-2 (COVID-19) Ad26 vaccine 05/25/20 Record ed Influenza Virus Vaccine (oldterm) 5 09/27/19 Recor ded Influenza Virus Vaccine (oldterm) 10/16/18 Recorde d tetanus-diphtheria toxoids (Td) 06/07/16 Recorded pneumococcal 23-valent vaccine 05/06/15 Given 1Location History: [facility] 2Location History: [facility] 3Result Comment: [03/10/2016] ORDERED BY DIAN CHU MD 4Result Comment: [12/20/2014] Admin at [place], [place]; date of administration is an estimate. 5Result Comment: Pharmacy Medications amLODIPine 5 mg oral tablet 1 tablet, By Mouth, Daily, # 90 tablet, 1 Refills, Maintenance, 07/18/24 3:28:00 PM EDT, [facility] #[id number], 165, cm, 06/16/24 9:14:00 EDT, Height, 121.72, kg, 04/17/24 9:37:00 EST, Dry Weight Start Date: 07/18/24 Status: Ordered Medication Dispense Status: Completed Quantity: 90.0 Unit: tablet Total Allowed Fills: 1 Fills Dispensed: 0 Blood Pressure Monitor See Instructions, # 1 units, Maintenance, dx: uncontrolled BP, 03/10/16 8:55:44 AM EST, Compound Start Date: 03/10/16 Status: Ordered Medication Dispense Status: Completed Quantity: 1.0 Unit: Units Total Allowed Fills: 1 Fills Dispensed: 0 CPAP Equipment See Instructions, # 1 units, Maintenance, Dx: moderate OLIVIER- AutoCPAP 8-20 cm H2O with compliance data, 11/30/17 2:44:05 PM EDT, Compound Start Date: 11/30/17 Status: Ordered Medication Dispense Status: Completed Quantity: 1.0 Unit: Units Total Allowed Fills: 1 Fills Dispensed: 0 fluticasone 50 mcg/inh nasal spray See Instructions, SHAKE LIQUID AND USE 1 SPRAY IN EACH NOSTRIL TWICE DAILY, # 16 Gm, 5 Refills, Maintenance, 03/22/24 2:57:00 PM EST, [facility] #[id number], 30, SHAKE LIQUID AND USE 1 SPRAY IN EACH NOSTRIL TWICE DAILY, 165, cm, 03/03/24 7:50:00 EST, Height, 127.27, kg, 12/13/23 15:45:00 EDT, Dry Weight Start Date: 03/22/24 Status: Ordered Medication Dispense Status: Completed Quantity: 16.0 Unit: g Total Allowed Fills: 1 Fills Dispensed: 0 hydrochlorothiazide 25 mg oral tablet 1, tablet, By Mouth, Daily, # 90 tablet, Refills 1, Maintenance, 09/26/24 5:49:00 PM EDT, Route to Pharmacy Electronically, [facility] #[id number], 165, cm, 08/08/24 8:43:00 EDT, Height, 117, kg,08/08/24 8:43:00 EDT, Dry Weight Start Date: 09/26/24 Status: Ordered Medication Dispense Status: Completed Quantity: 90.0 Unit: tablet Total Allowed Fills: 1 Fills Dispensed: 0 lisinopril 40 mg oral tablet 1 tablet, By Mouth, Daily, # 90 tablet, 1 Refills, Maintenance, 08/07/24 11:35:00 AM EDT, [facility] #[id number], 165, cm, 06/16/24 9:14:00 EDT, Height, 121.72, kg, 04/17/24 9:37:00 EST, Dry Weight Start Date: 08/07/24 Status: Ordered Medication Dispense Status: Completed Quantity: 90.0 Unit: tablet Total Allowed Fills: 1 Fills Dispensed: 0 Methadone Liquid See Instructions, 82 mg once daily, 0 Refills, Maintenance, 07/18/15 11:06:23 AM EDT Start Date: 07/18/15 Status: Ordered Medication Dispense Status: Completed Total Allowed Fills: 1 Fills Dispensed: 0 MiraLax oral powder for reconstitution = 17 Gm, By Mouth, Daily, dissolve in water before taking, # 527 Gm, 1 Refills, Maintenance, 10/30/24 8:34:00 AM EDT, REC Powder, [facility] #[id number], Partial fill upon patient request if the prescription is for a schedule II opioid drug., 17 Gm By Mouth Daily,Instr:dissolve in water before taking, 165, cm, 10/30/24 8:04:00 EDT, Height, 117, kg, 08/08/24 8:43:00 EDT, Dry Weight Start Date: 10/30/24 Status: Ordered Medication Dispense Status: Completed Quantity: 527.0 Unit: g Total Allowed Fills: 2 Fills Dispensed: 0 omeprazole 20 mg oral delayed release tablet 1 tablet = 20 mg, By Mouth, 2 times a day, # 20 tablet, 0 Refills, Maintenance, 08/10/24 6:34:00 PM EDT, EC Tablet, [facility] #[id number], Partial fill upon patient request if the prescription is for a schedule II opioid drug., 165, cm, 08/08/24 8:43:00 EDT, Height, 117, kg, 08/08/24 8:43:00 EDT, Dry Weight Start Date: 08/10/24 Stop Date: 08/20/24 Status: Ordered Medication Dispense Status: Completed Quantity: 20.0 Unit: tablet Total Allowed Fills: 1 Fills Dispensed: 0 Senna 8.6 mg oral tablet 2, tablet, By Mouth, Daily at bedtime, PRN, TAKE WITH PLENTY OF WATER., # 180 tablet, Refills 3, Tot. Refills 3, Maintenance, NEEDED FOR CONSTIPATION,, 10/30/24 8:34:00 AM EDT, Route to Pharmacy Electronically, [facility] #[id number], 165, cm, 10/30/24 8:04:00 EDT, Height, 117, kg, 08/08/24 8:43:00 EDT, Dry Weight Start Date: 10/30/24 Stop Date: 10/25/25 Status: Ordered Medication Dispense Status: Completed Quantity: 180.0 Unit: tablet Total Allowed Fills: 4 Fills Dispensed: 0 Problem List Condition Confirmation Course Effective Dates Status H ealth Status Informant Cirrhosis of liver Confirmed Active Deviated nasal septum 1 Confirmed Active Ex-cigarette smoker Confirmed Active History of bilateral inguinal hernias 2 Confirmed Active Hepatitis B immune Confirmed Active History of nephrolithiasis - calcium oxalate stones Confirmed Active History of hepatitis B Confirmed Active History of hepatitis C 3 Confirmed Active Hypertension Confirmed Active Hemorrhoids, internal 4 Confirmed Active Nephrolithiasis 5 Confirmed Active Chronic anticoagulation 6 Confirmed Active Low back pain 7, 8, 9 Confirmed Active Complex sleep apnea syndrome 10 Confirmed Active Morbid obesity Confirmed Active Obesity, Class II, BMI 35-39.9 Confirmed Active OLIVIER (obstructive sleep apnea) 11, 12 Confirmed 10/26/17 Active Opioid dependence 13 Confirmed Active History of stress test 14 Confirmed Active Encounter for screening colonoscopy 15 Confirmed Active Chronic venous insufficiency 16 Confirmed Active Prediabetes Confirmed Active Pulmonary embolism, bilateral 17, 18, 19, 20 Confirmed 11/07/17 Active Severe obesity Confirmed Active Fatty liver 21 Confirmed Active Thyroid nodule Confirmed Active Deep venous embolism and thrombosis of left lower extremity 22, 23, 24, 25 Confirmed Active 1-seen by ENT. 2022 2CT scan October 2021: patulous fat-containing inguinal hernias left side greater than right 3-, s/p treatment with ledipasvir/sofosbuvir for 8 weeks with end of treatment response in Feb 2016 4-colonoscopy Mar 2021. Repeat in 10 years 5-Follows with [facility] 6 no evidence of a hypercoagulable state based on blood work . Given that he has experienced multiple DVTs he should remain on anticoagulation intermediate frame tender. 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 Findings at L4-L5 result in crowding of the bilateral traversing L5 nerve rootsand bilateral exiting L4 nerve roots. Findings at L5-S1 result in crowding of the left L5 and S1 nerve roots. Epidural lipomatosis has improved since the previous examination, with decrease in associated spinal canal narrowing compared to 2019. 8MRI Jan 2020-Multilevel degenerative changes of the lumbar spine- Degenerative findings superimposed on a congenitally narrowed spinal canal and in combination with epidural lipomatosis results in moderate to severe spinal canal stenosis at L3-L4 and moderate spinal canal stenosis at L4-L5. There is also multilevel varying neural foraminal stenosis which is most pronounced on the left at L5-S1 where there is moderate to severe neural foraminal narrowing crowding of the exiting left L5 nerve root. 9-X-ray 2019: Gnpo-fi-yzowwwgw lumbar spine degenerative changes,worst at L5-S1. [facility] 11-Study done again in July 2022 12-moderate 13-on methadone 14Normal- November 2023 15February . Repeat in [address] Moose Arnett 17- First PE was from DVT in left leg. in January 2019 had new DVT in right leg. Had been previouslydiagnosed with new PE at [facility] (2nd episode) 18-completed 6 months therapy with xarelto 19-Read Heme-Onc's note from 12-22-17. Provoked. Would need anticoagulation prior to long plane tripsor if patient has cast (prophylactic dose) 20- bilateral small subsegmental pulmonary embolism ([facility]) 21-seen in CT scan done at [facility] on 11-03-2019 (scanned) 22 no evidence of a hypercoagulable state based on blood work . Given that he has experienced multiple DVTs he should remain on anticoagulation fpc. 23-right lower extremity DVT in [place] 02-10-19 ordered after being diagnosed with PE on 01-15-19 at [facility]. 24treated with xarelto x 6 months 25U/S ordered after pt was diagnosed with PE. Occlusive thrombus in one of the gastrocnemius veins in the upper left calf, AND thrombosis of the left greater saphenous vein in the upper calf, greater than 5 cm in length . Social History Social History Type Response Sexual Sexually involved in last 6 months: No. Smoking Status Former smoker, quit more than 30 days ago entered on: 09/30/18 Sex Sex Representation Male (finding) Patient Care team information Care Team Personnel Name: Leanna Subramanian Position: [facility] Onco RN Member Role: Primary Care Nurse Name: Dian Chu MD Position: [facility] Physician - Primary Care Member Role: PCP Address: [address] [place] [address]- Telecom: Care Team Related Persons Name: MILI THOMAS Name: JUANITO MCCARTNEY Name: JUANITO MCCARTNEY Insurance Providers Guarantor name: SHAZIA MCCARTNEY Health Plan Information #: 1 [address]ayer: [facility] Payer Identifier: NA Member Number: [id number] Group Number: [id number] Subscriber Identifier: [id number] Relationship to Subscriber: self Coverage Type: Medicaid (Managed Care) Coverage Verification Date: NA Telecom: NA Address: NA
--- NOTE | ~2025-01-13 | XR_ITS ---
CLINICAL HISTORY: chest pain 2 view chest x-ray Comparison: CR - XR CHEST 2V - 02/20/24 11:03 EST Findings: The lungs are clear. Heart size is normal. There is mild loss of anterior vertebral body height of one of the midthoracic vertebral bodies, similar to prior exam. IMPRESSION: No acute cardiopulmonary abnormality. This document has been electronically signed by: Mounika Heck on 01/13/2025 08:56:59
[2025-01-13 07:40] VITALS: BP 151/80; PULSE 85; RESP 20; TEMP 36.4; O2SAT 98; BMI 42.0
--- OUTSIDE RECORDS SUMMARY | 2025-01-13 07:53 | XMS_ITS | Patient Health Record ---
Author Organization [facility] Address [address] [place] [address] Care Team Providers Care Sequins Stringer Name Role Phone Mason Ilya Unavailable [phone] Reason For Referral No Information Plan Of Treatment No Information
--- NOTE | 2025-01-13 08:06 | ECG_ITS ---
Test Reason : CP Blood Pressure : */* mmHG Vent. Rate : 58 BPM Atrial Rate : 58 BPM P-R Int : 128 ms QRS Dur : 100 ms QT Int : 424 ms P-R-T Axes : 31 21 31 degrees QTcB Int : 416 ms Sinus bradycardia Otherwise normal ECG When compared with ECG of 20-Feb-2024 09:49, Premature atrial complexes are no longer Present Referred By: Miguel Ángel Massey Electronically Signed By: PAUL BERNARDO
--- NOTE | 2025-01-13 08:09 | ED.GENADULT ---
HPI - General Adult General Chief complaint: General Medical Stated complaint: body pain Time Seen by Provider: 01/13/25 08:00 Source: patient Mode of arrival: ambulatory Limitations: no limitations History of Present Illness HPI narrative: This is a 49 years old male presented to the emergency department complaining of not feeling well generalized pain left side neck pain chest pain shortness of breath since he was prescribed prednisone 2 days ago. He was seen here 2 days ago on diagnosed with gout discharged home on prednisone. Patient denies history of substance abuse in the past and pulmonary emboli on Xarelto also history of thyroidectomy done 2 weeks ago Onset (ago): day(s) (1) Radiation: non-radiation Severity: moderate Quality: burning Pain Consistency: constant Relieving factors: none Exacerbating factors: none Associated symptoms: denies other symptoms Related Data Previous Rx's ?Medication ?Instructions ?Recorded omeprazole magnesium 20 mg 20 mg PO DAILY #14 tabs 05/10/20 tablet,delayed release (Prilosec OTC) tramadol 50 mg tablet 50 mg PO Q6H PRN pain #20 tabs 01/06/21 famotidine 20 mg tablet (Pepcid) 20 mg PO DAILY #30 tabs 06/19/21 cyclobenzaprine 10 mg tablet 10 mg PO TID PRN muscle spasm #14 08/06/21 tabs lidocaine 4 % topical patch 1 patch topical DAILY PRN pain #10 08/06/21 ea cephalexin 500 mg capsule 500 mg PO QID 7 days #28 caps 09/15/22 doxycycline hyclate 100 mg capsule 100 mg PO BID #14 caps 09/15/22 loperamide 2 mg capsule (Imodium 2 mg PO Q6H PRN loose stool #14 06/14/23 A-D) caps ondansetron 4 mg disintegrating 4 mg PO DAILY PRN nausea and 06/14/23 tablet vomiting 5 days #14 tabs clindamycin HCl 300 mg capsule 300 mg PO Q6H #40 caps 07/11/23 mupirocin 2 % topical ointment 1 appl topical BID #15 grams 07/11/23 prednisone 20 mg tablet 20 mg PO BID 4 days #8 tabs 01/11/25 Allergies Allergy/AdvReac Type Severity Reaction Status Date / Time Penicillins (PENICILLINS) Allergy Unknown Rash Verified 01/13/25 07:45 Review of Systems Constitutional: Constitutional: Reports no additional constitutional complaints Cardiovascular: Cardiovascular: Reports as per HPI and Reports no additional cardiovascular complaints [facility] Past Medical History Attestation statement: The following information was validated with the patient. Source: unable to obtain Medical History GERD (gastroesophageal reflux disease) Chronic anticoagulation Pulmonary embolism Substance abuse HTN (hypertension) Kidney stones History of blood clots Social History Social History Alcohol intake: former Patient Tobacco Use Status: Former Tobacco user Substance Use Type: Former Substance User and Heroin Physical Exam ED Exam Exam: No acute distress looks well Vital Signs: Vital Signs - 24 hr 01/13/25 07:40 Temperature 97.5 F Pulse Rate 85 Respiratory Rate 20 Blood Pressure 151/80 H Pulse Oximetry 98 Oxygen Delivery Method Room Air BMI result Body Mass Index 42.0 Const General: cooperative Nutritional Appearance: well nourished Orientation/consciousness: patient oriented x3 HENMT Head: Yes normal to inspection Ears: hearing grossly normal bilaterally General nose exam: Normal external nose present Face and sinus: Yes normal facial exam Mouth: Normal oral and palatal mucosa present Neck Neck: Yes normal visual inspection Chest Chest palpation & inspection: normal inspection of the chest Resp Effort & Inspection: normal respiratory effort Auscultation: clear to auscultation bilaterally Cardio Jugular venous distension: no JVD Palpation: normal PMI Rate: regular rate GI Inspection: Yes normal to inspection Palpation (GI): Soft to palpation Percussion: Yes normal to percussion Skin General skin exam: no rashes or lesions noted Lesions: no lesions Rashes: no rashes Trauma: no lacerations or abrasions Neuro General: patient oriented x3 Extrem General: Yes normal to inspection, Yes full ROM and Yes capillary refill normal Course Reevaluation(s) Reevaluation #1: Workup completed that he has a normal white count a negative I sensitive troponin, a normal EKG and normal chest x-ray normal TSH at this point I think he can be discharged home most likely symptoms are due to the prednisone patient was told to discontinue the prednisone Time: 09:21 Medications Administered Discontinued Medications Generic Name Dose Route Start Last Admin Trade Name Freq PRN Reason Stop Dose Admin Lorazepam 1 mg 01/13/25 08:06 01/13/25 08:11 Lorazepam 1 Mg Tablet PO 01/13/25 08:07 1 mg ONCE ONE Administration Medical Decision Making Medical Decision Making [facility] Narrative: Patient is here with multiple complaints possible side effects of prednisone we will go ahead and check labs electrocardiogram and chest x-ray 09:20 patient has a normal electrocardiogram negative high sensitive troponin, normal chest x-ray, TSH is also normal, I do not think he has a PE because he is already on Xarelto. I think he can be discharged home his symptoms are most likely related to the prednisone Differential Diagnosis Differential Diagnoses: The differential diagnosis associated with the presentation includes Viral syndrome/allergic reaction to prednisone/ACS Admission/Observation Consideration of admission/observation: Escalation of care including admission/observation considered Lab Data [facility] Lab Attestation statement: I reviewed the patient's lab results. 01/13/25 08:16 01/13/25 08:16 Labs: Lab Results 01/13/25 Range/Units 08:16 WBC 10.0 (4.8-10.8) X10*3/uL RBC 4.56 L (4.60-5.80) X10*6/uL Hgb 13.2 L (14.0-18.0) g/dl Hct 39.4 L (42.0-52.0) % MCV 86.4 (80.0-98.0) fL MCH 28.9 (27.0-33.0) pg MCHC 33.5 (31.0-36.0) g/dl RDW 12.5 (11.0-16.0) % Plt Count 230 (160-400) X10*3/uL MPV 9.1 L (9.4-12.4) fL Immature Gran % (Auto) 0.7 H (0.0-0.4) % Neut % (Auto) 66.6 (45-73) % Lymph % (Auto) 21.9 (20-40) % [place] % (Auto) 8.9 (2-11) % Eos % (Auto) 1.2 (0-4) % Baso % (Auto) 0.7 (0-2) % Lymph # (Auto) 2.2 (1.2-4.9) X10*3/uL [place] # (Auto) 0.9 (0.1-1.2) X10*3/uL Eos # (Auto) 0.1 (0.0-0.4) X10*3/uL Baso # (Auto) 0.1 (0.0-0.2) X10*3/uL Abs Immat Gran (auto) 0.07 H (0.00-0.03) X10*3/uL Absolute Neuts (auto) 6.7 (2.0-8.3) x10*3/uL Absolute Nucleated RBC 0.000 (0.0-0.012) X10*3/uL Nucleated RBC % (auto) 0.0 (0.0-0.2) /100WBC Sodium 139 (135-145) mmol/L Potassium 3.8 (3.3-5.1) mmol/L Chloride 101 (96-108) mmol/L Carbon Dioxide 27 (22-29) mmol/L Anion Gap 15 (12-20) BUN 14 (9-16) mg/dL Creatinine 0.96 (0.5-1.4) mg/dL Estim Creat Clear Calc 112.5 Estimated GFR > 60 Random Glucose 113 (60-115) mg/dL Calcium 9.8 D (8.4-10.2) mg/dL Total Bilirubin 0.3 (0.0-1.0) mg/dL AST 34 (5-37) U/L ALT 47 H (0-40) U/L Alkaline Phosphatase 65 (39-117) U/L Troponin I High Sens < 2.7 (<3.5-35.0) ng/L Total Protein 8.1 H (6.5-8.0) g/dL Albumin 4.8 (3.5-5.0) g/dL TSH 3.72 (0.32-4.0) uIU/mL Independent Interpretation I performed an independent interpretation of an: EKG (EKG was reviewed interpreted by me as sinus rhythm rate [address]-T changes this is a normal electrocardiogram) and Plain X-Ray (Chest x-ray was reviewed interpreted by me as no acute disease) Radiology Impression Discussion of test interpretation with radiology: I have reviewed the radiologist's reading. Radiologist Impression: cc: Miguel Ángel Massey MD; BELINDA CASTELLANOS~ Reason for Exam: chest pain CLINICAL HISTORY: chest pain 2 view chest x-ray Comparison: CR - XR CHEST 2V - 02/20/24 11:03 EST Findings: The lungs are clear. Heart size is normal. There is mild loss of anterior vertebral body height of one of the midthoracic vertebral bodies, similar to prior exam. IMPRESSION: No acute cardiopulmonary abnormality. This document has been electronically signed by: Mounika Heck on 01/13/2025 08:56:59 Chronic Conditions Pulmonary emboli opiate use disorder Discharge Plan Discharge Clinical Impression: Medication adverse effect Patient Disposition: Home, Self-Care Additional Instructions: Your blood work was normal including white cell count, including kidney test, blood test for heart attack was normal, thyroid test was normal chest x-ray also was unremarkable . Please follow-up with your primary care physician call on Wednesday and make an appointment return to the emergency room if you are worse any concern Prescriptions: No Action omeprazole magnesium [Prilosec OTC] 20 mg tablet,delayed release (DR/EC) 20 mg PO DAILY Qty: 14 0RF famotidine [Pepcid] 20 mg tablet 20 mg PO DAILY Qty: 30 0RF cyclobenzaprine 10 mg tablet 10 mg PO TID PRN (Reason: muscle spasm) Qty: 14 0RF lidocaine 4 % adhesive patch,medicated 1 patch topical DAILY PRN (Reason: pain) Qty: 10 0RF Rx Instructions: may leave on for up to 12 hrs tramadol 50 mg tablet 50 mg PO Q6H PRN (Reason: pain) Qty: 20 0RF prednisone 20 mg tablet 20 mg PO BID 4 Days Qty: 8 0RF doxycycline hyclate 100 mg capsule 100 mg PO BID Qty: 14 0RF cephalexin 500 mg capsule 500 mg PO QID 7 Days Qty: 28 0RF ondansetron 4 mg tablet,disintegrating 4 mg PO DAILY PRN (Reason: nausea and vomiting) 5 Days Qty: 14 0RF loperamide [Imodium A-D] 2 mg capsule 2 mg PO Q6H PRN (Reason: loose stool) Qty: 14 0RF Rx Instructions: 4 mg initially, followed by 2 mg after each loose stool; maximum: 16 mg/day. Limit use to =48 hours clindamycin HCl 300 mg capsule 300 mg PO Q6H Qty: 40 0RF mupirocin 2 % ointment 1 appl topical BID Qty: 15 0RF Referrals: Francois-Francois,Belinda [Primary Care Provider, Internal Medicine] Interventions: ED Discharge Assessment Last Done: 01/13/25 09:45 Discharge Date/Time: 01/13/25 09:47 Print Language: Niuean
[2025-01-13 08:21] LABS: Hematocrit 39.4 % (42.0-52.0); Hemoglobin 13.2 g/dl (14.0-18.0); Imm Gran Abs Auto 0.07 X10*3/uL (0.00-0.03); Imm Gran Pct Auto 0.7 % (0.0-0.4); Lymphocytes Absolute Auto 2.2 X10*3/uL (1.2-4.9); MANUAL DIFF FLAG NO; Mean Corpuscular HGB Conc 33.5 g/dl (31.0-36.0); Mean Corpuscular Hemoglobin 28.9 pg (27.0-33.0); Mean Corpuscular Volume 86.4 fL (80.0-98.0); NRBC Abs Auto 0.000 X10*3/uL (0.0-0.012); NRBC Pct Auto 0.0 /100WBC (0.0-0.2); Platelet Count 230 X10*3/uL (160-400); Red Blood Count 4.56 X10*6/uL (4.60-5.80); White Blood Count 10.0 X10*3/uL (4.8-10.8)
[2025-01-13 08:46] LABS: Alanine Aminotransferase 47 U/L (0-40); Albumin Level 4.8 g/dL (3.5-5.0); Alkaline Phosphatase 65 U/L (39-117); Anion Gap 15 (12-20); Aspartate Amino Transferase 34 U/L (5-37); Blood Urea Nitrogen 14 mg/dL (9-16); Calcium 9.8 mg/dL (8.4-10.2); Carbon Dioxide 27 mmol/L (22-29); Chloride 101 mmol/L (96-108); Creatinine Clr Calc Pharmacy 112.5; Estimated Glomerular Filt Rate > 60; Potassium 3.8 mmol/L (3.3-5.1); Sodium 139 mmol/L (135-145); Total Protein 8.1 g/dL (6.5-8.0)
[2025-01-13 08:48] LABS: Troponin-I High Sensitivity < 2.7 ng/L (<3.5-35.0)
[2025-01-13 09:10] LABS: Thyroid Stimulating Hormone 3.72 uIU/mL (0.32-4.0)
[2025-01-13 09:45] VITALS: BP 151/80; PULSE 85; RESP 20; TEMP 36.4; O2SAT 98
== END 2025-01-13 09:47 | disposition home or self-care (01) ==
PROVIDERS: Emergency Provider Emergency Medicine; PCP Internal Medicine
DX: M79.10 Myalgia, unspecified site (principal); M54.2 Cervicalgia; R06.02 Shortness of breath; R00.1 Bradycardia, unspecified; R07.89 Other chest pain; Z87.891 Personal history of nicotine dependence; Z79.899 Other long term (current) drug therapy
CPT/HCPCS: 36415; 71046; 80053; 84443; 84484; 85025; 93005; 99283; 99284

== ENCOUNTER → 2025-01-13 08:06 | Outpatient (BNV) | payer OTHER, SELFPAY | PROVIDERS: Emergency Provider Emergency Medicine; PCP Internal Medicine; Visit Provider Internal Medicine | DX: R00.1 Bradycardia, unspecified (principal) | CPT/HCPCS: 93010 ==

== ENCOUNTER → 2025-01-13 08:06 | Outpatient (BNV) | payer OTHER, SELFPAY | PROVIDERS: Emergency Provider Emergency Medicine; PCP Internal Medicine; Visit Provider Radiology Vascular & Interventional Radiology | DX: R07.9 Chest pain, unspecified (principal) | CPT/HCPCS: 71046 ==